=== PATIENT | male | born 1960 | race Caucasian/White ===

== ENCOUNTER → 2016-10-04 | Outpatient (REF) | payer OTHER ==
[~2016-10-04] MED LIST: BACT400T PO; DOXY150C PO; LASI40TA PO; MELO7.5T3 PO; prilosec PO
[2016-10-04 16:04] LABS: BASO # 0.1 K/mm3 (0.0-0.2); BASO % 1.5 % (0.0-1.0); EOS # 0.4 K/mm3 (0.0-0.50); EOS % 5.1 % (0.0-3.0); LARGE UNSTAINED CELL # 0.2 K/mm3 (0.0-0.4); LYMPH # 2.7 K/mm3 (1.5-4.5); LYMPH % 35.9 % (24.0-44.0); MEAN CORPUSCULAR HEMOGLOBIN 32.9 pg (27.0-33.0); MEAN CORPUSCULAR HGB CONC 33.9 g/dl (32.0-36.5); MEAN CORPUSCULAR VOLUME 97.1 fl (80.0-96.0); MONO # 0.6 K/mm3 (0.0-0.8); MONO % 8.8 % (0.0-5.0); NEUTROPHILS # 3.1 K/mm3 (1.8-7.7); NEUTROPHILS % 45.6 % (36.0-66.0); PLATELET COUNT, AUTOMATED 203 k/mm3 (150-450); RED CELL DISTRIBUTION WIDTH 12.8 % (11.5-14.5); WHITE BLOOD COUNT 6.9 K/mm3 (4.0-10.0)
[2016-10-04 16:11] LABS: FOLATE 11.7 NG/ML
[2016-10-04 16:24] LABS: ALBUMIN 3.6 GM/DL (3.2-5.2); ALBUMIN/GLOBULIN RATIO 1.13 (1.00-1.93); BILIRUBIN,TOTAL 0.4 MG/DL (0.2-1.0); CALCIUM LEVEL 8.9 MG/DL (8.5-10.1); CREATININE FOR GFR 1.56 MG/DL (0.70-1.30); FREE T4 0.83 NG/DL (0.76-1.46); GLOMERULAR FILTRATION RATE 49.1 (>56); POTASSIUM SERUM 4.4 MEQ/L (3.5-5.1); TOTAL PROTEIN 6.8 GM/DL (6.4-8.2)
== END ==
LOC: M SFHCADAM 08:43
PROVIDERS: ATTEND Physician Assistant Medical
DX: E78.1 Pure hyperglyceridemia (principal); R73.01 Impaired fasting glucose; E55.9 Vitamin D deficiency, unspecified; R42 Dizziness and giddiness

== ENCOUNTER → 2016-12-06 | Outpatient (CLI) | payer OTHER ==
[~2016-12-06] MED LIST changes: +ACETAMINOPHEN-COD; +CITA10TA5 PO; +CODE30TA3 PO; +CYCL10TA PO; +OMEP40CA2 PO; +SYMB16INH INH; +VITA1CAP40; +VITA200028 PO
--- NOTE | 2016-12-06 17:07 | REP ---
Right knee series: Two views. History: Acute pain in the right knee. Findings: AP and lateral views of the right knee demonstrate medial and lateral tibial femoral spurring. Patellofemoral spurring and narrowing is seen. Nonarticular patellar spurring is also noted. No fracture or joint effusion is seen. Impression: Osteoarthritis. No fracture seen. Signed by Eamon Morton MD 12/07/2016 09:23 A
== END ==
LOC: M ADAMS 13:37
PROVIDERS: ATTEND Physician Assistant Medical
DX: M17.11 Unilateral primary osteoarthritis, right knee (principal)

== ENCOUNTER 2016-12-27 12:42 | Emergency (ER) | payer OTHER ==
[~2016-12-27] VITALS: Ht 180.3 cm; Wt 144.6 kg
[~2016-12-27 12:42] MED LIST changes: -ACETAMINOPHEN-COD; -CITA10TA5 PO; -CODE30TA3 PO; -CYCL10TA PO; -OMEP40CA2 PO; -SYMB16INH INH; -VITA1CAP40; -VITA200028 PO
[2016-12-27] MEDS ORDERED: KETOROLAC 60 MG/2 ML VIAL (J1885) IM ONE (13:00)
[2016-12-27] MEDS ORDERED: SYMB16INH INH (13:04)
[2016-12-27] MEDS ORDERED: OMEP40CA2 PO (13:04)
[2016-12-27] MEDS ORDERED: CODE30TA3 PO (13:04)
[2016-12-27] MEDS ORDERED: VITA200028 PO (13:04)
[2016-12-27] MEDS ORDERED: CITA10TA5 PO (13:04)
[2016-12-27] MEDS ORDERED: CYCL10TA PO (13:35)
[2016-12-27 14:17] VITALS: BP 122/86
== END 2016-12-27 14:21 | disposition home or self-care (01) ==
LOC: M ED 12:42
DX: S39.012A Strain of muscle, fascia and tendon of lower back, initial encounter (principal); X50.9XXA Other and unspecified overexertion or strenuous movements or postures, initial encounter; Y93.9 Activity, unspecified; Y92.9 Unspecified place or not applicable; Y99.0 Civilian activity done for income or pay; Z87.891 Personal history of nicotine dependence
CPT/HCPCS: 96372; 99283; J1885; J3360

== ENCOUNTER → 2017-02-15 | Outpatient (REF) | payer OTHER ==
[~2017-02-15] MED LIST changes: +ACETAMINOPHEN-COD; +CITA10TA5 PO; +CODE30TA3 PO; +CYCL10TA PO; +OMEP40CA2 PO; +SYMB16INH INH; +VITA1CAP40; +VITA200028 PO
== END ==
LOC: M LAB REF 15:00
PROVIDERS: ATTEND Ophthalmology
DX: L72.0 Epidermal cyst (principal)

== ENCOUNTER 2017-02-27 16:51 | Emergency (ER) | payer OTHER ==
[~2017-02-27] VITALS: Ht 185.4 cm; Wt 145.4 kg
[~2017-02-27 16:51] MED LIST changes: -ACETAMINOPHEN-COD; -VITA1CAP40
[2017-02-27] MEDS ORDERED: ACETAMINOPHEN-COD (16:59)
[2017-02-27] MEDS ORDERED: VITA1CAP40 (16:59)
[2017-02-27] MEDS ORDERED: NORCO, ANEXSIA 5/325MG TABLET (HYDROcodone/ACETAMINOPHEN) PO ONE (18:30)
--- NOTE | 2017-02-27 18:55 | REP ---
Left ankle series: Four views. History: Trauma. Findings: Four views of the left ankle demonstrate an intact ankle mortise. There is an old exostosis from the medial malleolus. No fracture or other acute bony abnormality is seen. Ankle mortise is intact. Achilles and plantar calcaneal spurring is noted with osteoarthritic spurring is seen. Impression: No fracture or other acute bony abnormality. Midfoot ankle and heel spurring seen. Signed by Eamon Morton MD 02/27/2017 08:03 P
[2017-02-27 19:05] VITALS: BP 139/87
== END 2017-02-27 19:07 | disposition home or self-care (01) ==
LOC: M ED 16:51
DX: S93.432A Sprain of tibiofibular ligament of left ankle, initial encounter (principal); X50.9XXA Other and unspecified overexertion or strenuous movements or postures, initial encounter; Y92.59 Other trade areas as the place of occurrence of the external cause; Y93.01 Activity, walking, marching and hiking; Y99.0 Civilian activity done for income or pay; J45.909 Unspecified asthma, uncomplicated; N18.3 Chronic kidney disease, stage 3 (moderate); M79.7 Fibromyalgia; G47.33 Obstructive sleep apnea (adult) (pediatric); K21.9 Gastro-esophageal reflux disease without esophagitis; M10.9 Gout, unspecified; F17.210 Nicotine dependence, cigarettes, uncomplicated; E66.01 Morbid (severe) obesity due to excess calories; Z79.899 Other long term (current) drug therapy

== ENCOUNTER → 2017-04-07 | Outpatient (REF) | payer OTHER ==
[~2017-04-07] MED LIST changes: +ACETAMINOPHEN-COD; +VITA1CAP40
[2017-04-07 13:37] LABS: BASO # 0.1 10^3/uL (0.0-0.2); BASO % 1.1 % (0.0-1.0); EOS # 0.2 10^3/uL (0.0-0.50); EOS % 1.8 % (0.0-3.0); IMMATURE GRANULOCYTE % 0.6 % (0-0); LYMPH # 2.3 10^3/uL (1.5-4.5); LYMPH % 25.9 % (24.0-44.0); MEAN CORPUSCULAR HEMOGLOBIN 31.6 pg (27.0-33.0); MEAN CORPUSCULAR HGB CONC 32.9 g/dl (32.0-36.5); MEAN CORPUSCULAR VOLUME 95.9 fl (80.0-96.0); MONO % 11.2 % (0.0-5.0); NEUTROPHILS # 5.2 10^3/uL (1.8-7.7); NEUTROPHILS % 59.4 % (36.0-66.0); PLATELET COUNT, AUTOMATED 198 10^3/uL (150-450); RED CELL DISTRIBUTION WIDTH 13.5 % (11.5-14.5); WHITE BLOOD COUNT 8.8 10^3/uL (4.0-10.0)
[2017-04-07 14:11] LABS: ALBUMIN/GLOBULIN RATIO 1.14 (1.00-1.93); BILIRUBIN,TOTAL 0.9 MG/DL (0.2-1.0); CALCIUM LEVEL 9.5 MG/DL (8.5-10.1); CREATININE FOR GFR 1.47 MG/DL (0.70-1.30); GLOMERULAR FILTRATION RATE 52.4 (>56); POTASSIUM SERUM 4.6 MEQ/L (3.5-5.1); TOTAL PROTEIN 7.5 GM/DL (6.4-8.2)
== END ==
LOC: M SFHCADAM 08:37
PROVIDERS: ATTEND Physician Assistant Medical
DX: N18.3 Chronic kidney disease, stage 3 (moderate) (principal); E55.9 Vitamin D deficiency, unspecified; R73.01 Impaired fasting glucose

== ENCOUNTER → 2017-06-23 | Outpatient (CLI) | payer OTHER | LOC: M ADAMS 14:04 | DX: M25.551 Pain in right hip (principal); M17.11 Unilateral primary osteoarthritis, right knee | CPT/HCPCS: 73502 ==

== ENCOUNTER → 2017-06-29 | Outpatient (CLI) | payer OTHER | LOC: M ADAMS 14:21 | DX: M16.11 Unilateral primary osteoarthritis, right hip (principal); M25.551 Pain in right hip; R20.2 Paresthesia of skin | CPT/HCPCS: 72100 ==

== ENCOUNTER → 2017-07-10 | Outpatient (CLI) | payer OTHER | LOC: M RAD 09:40 | DX: M51.26 Other intervertebral disc displacement, lumbar region (principal); M51.27 Other intervertebral disc displacement, lumbosacral region; M48.061 Spinal stenosis, lumbar region without neurogenic claudication; M25.551 Pain in right hip; M12.88 Other specific arthropathies, not elsewhere classified, other specified site; R20.2 Paresthesia of skin | CPT/HCPCS: 72148 ==

== ENCOUNTER 2017-09-11 12:56 | Emergency (ER) | payer OTHER ==
[2017-09-11] MEDS: MORPHINE 2 MG/ML 1ML SYRINGE (J2270) IV ×2 (16:27→20:17)
[2017-09-11 16:40] LABS: BASO # 0.1 10^3/uL (0.0-0.2); EOS # 0.3 10^3/uL (0.0-0.50); EOS % 3.2 % (0.0-3.0); HEMATOCRIT 41.5 % (42.0-52.0); HEMOGLOBIN 14.1 g/dl (13.5-17.5); IMMATURE GRANULOCYTE % 0.7 % (0-3.0); LYMPH # 2.2 10^3/uL (1.5-4.5); LYMPH % 24.9 % (24.0-44.0); MEAN CORPUSCULAR VOLUME 94.3 fl (80.0-96.0); MONO # 1.2 10^3/uL (0.0-0.8); MONO % 13.4 % (0.0-5.0); NEUTROPHILS % 56.8 % (36.0-66.0); PLATELET COUNT, AUTOMATED 155 10^3/uL (150-450); RED CELL DISTRIBUTION WIDTH 13.2 % (11.5-14.5); WHITE BLOOD COUNT 8.9 10^3/uL (4.0-10.0)
[2017-09-11 16:50] LABS: INR 0.95; PROTHROMBIN TIME 12.7 SECONDS (12.4-14.5)
[2017-09-11 16:51] LABS: PARTIAL THROMBOPLASTIN TIME 26.4 SECONDS (26.8-37.9)
[2017-09-11 17:07] LABS: ALBUMIN 3.3 GM/DL (3.2-5.2); ALBUMIN/GLOBULIN RATIO 0.79 (1.00-1.93); ALKALINE PHOSPHATASE 138 U/L (45-117); ALT/SGPT 19 U/L (12-78); ANION GAP 6 MEQ/L (8-16); AST/SGOT 24 U/L (7-37); BILIRUBIN,DIRECT 0.1 MG/DL (0.0-0.2); BILIRUBIN,TOTAL 0.6 MG/DL (0.2-1.0); BLOOD UREA NITROGEN 17 MG/DL (7-18); CALCIUM LEVEL 8.9 MG/DL (8.5-10.1); CARBON DIOXIDE LEVEL 27 MEQ/L (21-32); CHLORIDE LEVEL 106 MEQ/L (98-107); CK-MB VALUE MASS 1.1 NG/ML (<3.6); CPK CREATINE PHOSPHOKINASE 183 U/L (39-308); CREATININE FOR GFR 1.41 MG/DL (0.70-1.30); GLUCOSE, FASTING 115 MG/DL (70-100); SODIUM LEVEL 139 MEQ/L (136-145); TOTAL PROTEIN 7.5 GM/DL (6.4-8.2); TROPONIN I < 0.02 NG/ML (< 0.10)
[2017-09-11] MEDS ORDERED: ISOVUE-370 76% 100ML VIAL (Q9967) As Ordered (17:12)
[2017-09-11] MEDS: APIXABAN 5 MG TAB (ELIQUIS) PO (20:37)
== END 2017-09-11 21:05 | disposition home or self-care (01) ==
LOC: M ED 12:56
DX: I26.99 Other pulmonary embolism without acute cor pulmonale (principal); I82.431 Acute embolism and thrombosis of right popliteal vein; R91.8 Other nonspecific abnormal finding of lung field; J44.9 Chronic obstructive pulmonary disease, unspecified; K21.9 Gastro-esophageal reflux disease without esophagitis; Z87.828 Personal history of other (healed) physical injury and trauma; Z87.891 Personal history of nicotine dependence; Z85.47 Personal history of malignant neoplasm of testis
CPT/HCPCS: Q9967

== ENCOUNTER 2017-12-05 03:35 | Emergency (ER) | payer OTHER ==
[2017-12-05] MEDS: ONDANSETRON 4MG/2ML VIAL (J2405) IV (05:37)
[2017-12-05] MEDS: METHOCARBAMOL 1,000 MG/10 ML VIAL (J2800) IV (05:44)
[2017-12-05] MEDS: KETOROLAC 30 MG/ML VIAL (J1885) IV (05:49)
[2017-12-05] MEDS: MORPHINE 4 MG/ML 1ML VIAL/SYRINGE (J2270) IV ×2 (05:50→06:23)
== END 2017-12-05 08:04 | disposition home or self-care (01) ==
LOC: M ED 03:35
DX: M54.5 Low back pain (principal); G89.29 Other chronic pain; Z86.718 Personal history of other venous thrombosis and embolism; Z86.711 Personal history of pulmonary embolism; Z87.891 Personal history of nicotine dependence; Z79.899 Other long term (current) drug therapy; Z79.01 Long term (current) use of anticoagulants; Z79.51 Long term (current) use of inhaled steroids
CPT/HCPCS: J2270

== ENCOUNTER → 2018-01-08 | Outpatient (REF) | payer OTHER ==
[2018-01-08 18:58] LABS: ALBUMIN 3.7 GM/DL (3.2-5.2); ALKALINE PHOSPHATASE 109 U/L (45-117); ALT/SGPT 21 U/L (12-78); ANION GAP 8 MEQ/L (8-16); AST/SGOT 29 U/L (7-37); BILIRUBIN,TOTAL 0.5 MG/DL (0.2-1.0); BLOOD UREA NITROGEN 25 MG/DL (7-18); CARBON DIOXIDE LEVEL 26 MEQ/L (21-32); CHLORIDE LEVEL 108 MEQ/L (98-107); CREATININE FOR GFR 1.61 MG/DL (0.70-1.30); GLUCOSE, FASTING 120 MG/DL (70-100); POTASSIUM SERUM 4.3 MEQ/L (3.5-5.1); SODIUM LEVEL 142 MEQ/L (136-145); TOTAL PROTEIN 7.4 GM/DL (6.4-8.2)
[2018-01-08 19:02] LABS: ESTIMATED AVERAGE GLUCOSE 128 MG/DL (60-110); HEMOGLOBIN A1c 6.1 %; TOTAL 25(OH) VITAMIN D 15.9 NG/ML (30.0-100.0)
== END ==
LOC: M SFHCADAM 13:38
DX: E11.22 Type 2 diabetes mellitus with diabetic chronic kidney disease (principal); E55.9 Vitamin D deficiency, unspecified

== ENCOUNTER 2018-01-23 16:39 | Emergency (ER) | payer OTHER | END 2018-01-23 17:50 | disposition home or self-care (01) | LOC: M ED 16:39 | DX: S29.002A Unspecified injury of muscle and tendon of back wall of thorax, initial encounter (principal); S39.002A Unspecified injury of muscle, fascia and tendon of lower back, initial encounter; X50.0XXA Overexertion from strenuous movement or load, initial encounter; Y92.89 Other specified places as the place of occurrence of the external cause; J44.9 Chronic obstructive pulmonary disease, unspecified; Z85.47 Personal history of malignant neoplasm of testis; Z79.899 Other long term (current) drug therapy; Z79.01 Long term (current) use of anticoagulants; Z87.891 Personal history of nicotine dependence | CPT/HCPCS: 99282 ==

== ENCOUNTER → 2018-03-20 | Outpatient (CLI) | payer OTHER | LOC: M RAD 14:46 | DX: M47.22 Other spondylosis with radiculopathy, cervical region (principal); M50.21 Other cervical disc displacement, high cervical region; M50.221 Other cervical disc displacement at C4-C5 level; M50.222 Other cervical disc displacement at C5-C6 level; M50.223 Other cervical disc displacement at C6-C7 level | CPT/HCPCS: 72141 ==

== ENCOUNTER → 2018-03-20 | Outpatient (REF) | payer OTHER ==
[2018-03-20 14:15] LABS: BASO # 0.1 10^3/uL (0.0-0.2); BASO % 1.7 % (0.0-1.0); EOS # 0.4 10^3/uL (0.0-0.50); EOS % 5.3 % (0.0-3.0); HEMATOCRIT 45.3 % (42.0-52.0); IMMATURE GRANULOCYTE % 0.3 % (0-3.0); LYMPH # 2.4 10^3/uL (1.5-4.5); LYMPH % 36.6 % (24.0-44.0); MEAN CORPUSCULAR HEMOGLOBIN 32.5 pg (27.0-33.0); MEAN CORPUSCULAR HGB CONC 33.1 g/dl (32.0-36.5); MEAN CORPUSCULAR VOLUME 98.1 fl (80.0-96.0); MONO # 0.7 10^3/uL (0.0-0.8); MONO % 10.9 % (0.0-5.0); NEUTROPHILS % 45.2 % (36.0-66.0); PLATELET COUNT, AUTOMATED 207 10^3/uL (150-450); RED BLOOD COUNT 4.62 10^6/uL (4.30-6.10); RED CELL DISTRIBUTION WIDTH 13.2 % (11.5-14.5); WHITE BLOOD COUNT 6.6 10^3/uL (4.0-10.0)
[2018-03-20 20:12] LABS: ALBUMIN 3.9 GM/DL (3.2-5.2); ALBUMIN/GLOBULIN RATIO 1.08 (1.00-1.93); ALKALINE PHOSPHATASE 113 U/L (45-117); ALT/SGPT 23 U/L (12-78); ANION GAP 11 MEQ/L (8-16); AST/SGOT 36 U/L (7-37); BILIRUBIN,TOTAL 0.8 MG/DL (0.2-1.0); BLOOD UREA NITROGEN 28 MG/DL (7-18); CALCIUM LEVEL 8.9 MG/DL (8.5-10.1); CARBON DIOXIDE LEVEL 24 MEQ/L (21-32); CHLORIDE LEVEL 105 MEQ/L (98-107); CHOLESTEROL LEVEL 208 MG/DL (<200); CHOLESTEROL RISK RATIO 5.333 (<5); CREATININE FOR GFR 1.41 MG/DL (0.70-1.30); GLOMERULAR FILTRATION RATE 54.8 (>56); GLUCOSE, FASTING 91 MG/DL (70-100); HDL CHOLESTEROL 39 MG/DL (>40); LDL CHOLESTEROL 120 MG/DL (<100); NON-HDL-C 169 MG/DL; POTASSIUM SERUM 4.4 MEQ/L (3.5-5.1); SODIUM LEVEL 140 MEQ/L (136-145); TOTAL PROTEIN 7.5 GM/DL (6.4-8.2); TRIGLYCERIDES LEVEL 243 MG/DL (<150)
== END ==
LOC: M SFHCADAM 08:33
DX: I82.411 Acute embolism and thrombosis of right femoral vein (principal); I26.99 Other pulmonary embolism without acute cor pulmonale; N18.3 Chronic kidney disease, stage 3 (moderate)

== ENCOUNTER 2018-04-09 09:17 | Day surgery (SDC) | payer OTHER ==
[2018-04-09] MEDS: NS 1,000 ML IV (06:00)
[2018-04-09] MEDS ORDERED: PROPOFOL 200 MG/20 ML VIAL As Ordered ×2 (09:52→09:59)
== END 2018-04-09 10:48 | disposition home or self-care (01) ==
LOC: M OPP 09:17
DX: Z12.11 Encounter for screening for malignant neoplasm of colon (principal); D12.2 Benign neoplasm of ascending colon; D12.4 Benign neoplasm of descending colon; K64.0 First degree hemorrhoids; K57.30 Diverticulosis of large intestine without perforation or abscess without bleeding; J45.909 Unspecified asthma, uncomplicated; J44.9 Chronic obstructive pulmonary disease, unspecified; M19.90 Unspecified osteoarthritis, unspecified site; D64.9 Anemia, unspecified; E78.5 Hyperlipidemia, unspecified; E66.9 Obesity, unspecified; M10.9 Gout, unspecified; Z86.010 Personal history of colon polyps; Z79.01 Long term (current) use of anticoagulants; Z79.899 Other long term (current) drug therapy; Z87.19 Personal history of other diseases of the digestive system; Z87.891 Personal history of nicotine dependence; Z92.21 Personal history of antineoplastic chemotherapy; Z86.718 Personal history of other venous thrombosis and embolism; Z98.890 Other specified postprocedural states
CPT/HCPCS: 45385

== ENCOUNTER → 2018-05-11 | Outpatient (REF) | payer OTHER ==
[~2018-05-11] MED LIST changes: +CITA-229 PO; +ELIQ5TAB PO; +IBUP-1022 PO; +NAPR-49 PO; +PERC5TAB12 PO; +PROAAER10 INH; +ROBA500T PO; +TYLE325T5 PO; -VITA1CAP40; +VITA50005; +VITMTA PO
[2018-05-11 15:59] LABS: BASO # 0.1 10^3/uL (0.0-0.2); BASO % 1.7 % (0.0-1.0); EOS # 0.5 10^3/uL (0.0-0.50); EOS % 7.2 % (0.0-3.0); HEMATOCRIT 46.9 % (42.0-52.0); HEMOGLOBIN 15.6 g/dl (13.5-17.5); LYMPH # 2.2 10^3/uL (1.5-4.5); LYMPH % 34.3 % (24.0-44.0); MEAN CORPUSCULAR HEMOGLOBIN 32.4 pg (27.0-33.0); MEAN CORPUSCULAR HGB CONC 33.3 g/dl (32.0-36.5); MEAN CORPUSCULAR VOLUME 97.5 fl (80.0-96.0); MONO # 0.6 10^3/uL (0.0-0.8); MONO % 9.9 % (0.0-5.0); NEUTROPHILS % 46.6 % (36.0-66.0); PLATELET COUNT, AUTOMATED 194 10^3/uL (150-450); RED BLOOD COUNT 4.81 10^6/uL (4.30-6.10); WHITE BLOOD COUNT 6.4 10^3/uL (4.0-10.0)
[2018-05-11 16:03] LABS: C REACTIVE PROTEIN QUANTITATIV 0.59 MG/DL (0.00-0.30); GLUCOSE, FASTING 104 MG/DL (70-100); RHEUMATOID FACTOR QUANT < 10.0 IU/ML (<15.0); URIC ACID 7.3 MG/DL (3.5-7.2)
[2018-05-11 16:13] LABS: VITAMIN B12 LEVEL 554 PG/ML (247-911)
[2018-05-11 16:14] LABS: FOLATE 18.8 NG/ML (>5.4)
[2018-05-11 16:25] LABS: ERYTHROCYTE SEDIMENTATION RATE 4 mm/hr (0-20)
[2018-05-15 00:08] LABS: ANTI DOUBLE STRAND-DNA AB 1 IU/mL (0-9); ANTINUCLEAR ANTIBODIES DIRECT Positive (Negative); Lyme Disease IgG/IgM Antibodie <0.91 ISR (0.00-0.90); Lyme Disease IgM Ab Quantitati <0.80 index (0.00-0.79); RNP ANTIBODIES <0.2 AI (0.0-0.9); SJOGREN'S ANTI SS-A <0.2 AI (0.0-0.9); SJOGREN'S ANTI SS-B <0.2 AI (0.0-0.9); SMITH ANTIBODIES <0.2 AI (0.0-0.9)
== END ==
LOC: M LABDRAW1 12:10
PROVIDERS: ATTEND Physician Assistant Surgical
DX: M76.821 Posterior tibial tendinitis, right leg (principal)

== ENCOUNTER → 2018-06-14 | Outpatient (REF) | payer OTHER ==
[~2018-06-14] MED LIST changes: +ALLO10TA PO; -NAPR-49 PO; +NAPR-50 PO; +PRED20TA PO; +VITA50005 PO
[2018-06-14 19:32] LABS: HEMATOCRIT 44.7 % (42.0-52.0); HEMOGLOBIN 15.3 g/dl (13.5-17.5); MEAN CORPUSCULAR HEMOGLOBIN 32.3 pg (27.0-33.0); MEAN CORPUSCULAR HGB CONC 34.2 g/dl (32.0-36.5); MEAN CORPUSCULAR VOLUME 94.5 fl (80.0-96.0); PLATELET COUNT, AUTOMATED 242 10^3/uL (150-450); RED BLOOD COUNT 4.73 10^6/uL (4.30-6.10); WHITE BLOOD COUNT 10.7 10^3/uL (4.0-10.0)
== END ==
LOC: M SFHCADAM 14:54
PROVIDERS: ATTEND Physician Assistant Medical
DX: K92.1 Melena (principal)

== ENCOUNTER 2018-08-06 09:43 | Inpatient (IN) | payer OTHER ==
[~2018-08-06] VITALS: Ht 185.4 cm; Wt 151.1 kg
[2018-08-06] MEDS ORDERED: ONDANSETRON 4MG/2ML VIAL (J2405) IV ONE ×2 (10:00→13:15)
[2018-08-06 10:13] LABS: HEMATOCRIT 43.7 % (42.0-52.0); MEAN CORPUSCULAR HEMOGLOBIN 32.3 pg (27.0-33.0); MEAN CORPUSCULAR VOLUME 100.9 fl (80.0-96.0); PLATELET COUNT, AUTOMATED 206 10^3/uL (150-450); RED BLOOD COUNT 4.33 10^6/uL (4.30-6.10)
[2018-08-06] MEDS: NS 1,000 ML IV SCH ×3 (10:13→20:33)
[2018-08-06] MEDS: MORPHINE 4 MG/ML 1ML VIAL/SYRINGE (J2270) IV PRN ×4 (10:13→15:52)
[2018-08-06 10:27] LABS: INR 0.99; PROTHROMBIN TIME 13.2 SECONDS (12.1-14.4)
[2018-08-06 10:28] LABS: PARTIAL THROMBOPLASTIN TIME 29.3 SECONDS (25.4-37.6)
[2018-08-06 10:33] LABS: BLOOD UREA NITROGEN 26 MG/DL (7-18); CALCIUM LEVEL 8.4 MG/DL (8.5-10.1); CARBON DIOXIDE LEVEL 29 MEQ/L (21-32); CHLORIDE LEVEL 105 MEQ/L (98-107); CPK CREATINE PHOSPHOKINASE 276 U/L (39-308); CREATININE FOR GFR 1.56 MG/DL (0.70-1.30); GLOMERULAR FILTRATION RATE 48.7 (>56); GLUCOSE, FASTING 111 MG/DL (70-100); MB/CK RELATIVE INDEX 0.91 (< OR =4); POTASSIUM SERUM 4.6 MEQ/L (3.5-5.1); SODIUM LEVEL 141 MEQ/L (136-145); TROPONIN I < 0.02 NG/ML (< 0.10)
--- NOTE | 2018-08-06 11:04 | REP ---
RIGHT ANKLE, THREE VIEWS: HISTORY: Trauma. There is a nondisplaced oblique fracture of the distal fibula. There is widening of the superior medial joint space with lateral dislocation of the talus with respect to the tibia. Osteophytes are present on the inferior and posterior calcaneus. Soft tissue swelling is present. IMPRESSION: Fracture dislocation as described above. Electronically Signed by Miguel Gray MD 08/06/2018 11:08 A
--- NOTE | 2018-08-06 11:12 | REP ---
AP PORTABLE SEATED CHEST: 08/06/2018. Comparison: CTA and portable chest 06/04/2018. Lung perkins are better inflated than on the previous study. Some underlying mild fibrotic changes are present. No gross cardiomegaly, pleural effusion, acute infiltrate or masses. There is no vascular redistribution or edema. The aorta and airway intact. No widening of the mediastinum. Impression: 1. Some minor chronic interstitial changes in the chest similar to previous study but no cardiomegaly, edema, effusion, atelectasis or mass. No mediastinal widening. Electronically Signed by Elder Iniguez MD 08/06/2018 07:40 P
--- NOTE | 2018-08-06 12:07 | REP ---
CT RIGHT ANKLE WITHOUT CONTRAST: 08/06/2018 COMPARISON: Ankle x-ray 08/06/2018. CLINICAL HISTORY: Fracture and subluxation of the ankle. Technique axial soft-tissue and bone windows with reconstructed axial images to the long axis of the lower leg as well as coronal and sagittal reconstructions. Distal fibular displaced fracture. The talus is subluxed laterally in relationship to the tibial plafond. There is a distal fibular fragment at the lateral corner of the ankle mortise joint. That widens that lateral aspect of the ankle mortise joint. There is a small posterior malleolar fracture. I do not see a medial malleolar fracture. Remainder of the distal tibia intact. Talus without a definite acute fracture. The subtalar joints intact. There are heel spurs along with dorsal spurs anteriorly at the talonavicular and navicular first cuneiform joints on the sagittal reconstructions. IMPRESSION: 1. Bimalleolar fracture involving the posterior and lateral malleolus with distal fibular intra-articular fracture of the major fibular fragment in the lateral aspect of the mortise joint asymmetrically widening the joint. The talus is subluxed laterally and slightly posteriorly without melvi dislocation. No fracture talus, calcaneus or visualized tarsal bones. There are degenerative changes. Electronically Signed by Elder Iniguez MD 08/06/2018 07:48 P
[2018-08-06] MEDS ORDERED: ELIQ5TAB PO (13:21)
[2018-08-06] MEDS ORDERED: PERCOCET 5MG/325MG TAB PO PRN (16:00)
[2018-08-06] MEDS ORDERED: ACETAMINOPHEN TAB 650MG DOSE (2X325MG) PO PRN (16:00)
[2018-08-06] MEDS ORDERED: HEPARIN SOD (PORCINE) 5000 UNITS/ML VIAL IV PRN (16:15)
[2018-08-06] MEDS ORDERED: LIDOCAINE 1% MDV 20ML VIAL As Ordered ONE (16:18)
[2018-08-06] MEDS ORDERED: LIDOCAINE 1% MDV 20ML VIAL SC ONE (16:30)
[2018-08-06] MEDS ORDERED: LIDOCAINE 1% MDV 20ML VIAL SQ ONE (16:30)
[2018-08-06] MEDS ORDERED: MORPHINE 4 MG/ML 1ML VIAL/SYRINGE (J2270) IV ONE (17:00)
[2018-08-06] MEDS: PERCOCET 5MG/325MG TAB PO PRN (18:08)
--- NOTE | 2018-08-06 18:58 | REP ---
RIGHT ANKLE, FOUR VIEWS: HISTORY: Fracture. COMPARISON: 5:14 am 08/06/2018. A plaster cast is present obscuring detail. There is an oblique fracture of the distal fibula. There is widening of the medial joint space. There is no dislocation. IMPRESSION: The patient is status-post reduction of a fracture subluxation. There is widening of the medial joint space. Electronically Signed by Miguel Gray MD 08/06/2018 07:01 P
--- NOTE | 2018-08-06 19:00 | REP ---
RIGHT ANKLE, FIVE VIEWS: HISTORY: Closed reduction. Five portable radiographs were obtained with a C-ARM. The patient is status-post closed reduction of a fracture subluxation. There is a nondisplaced fracture of the distal fibula. There is widening of the medial joint space. Fluoroscopic time 9 seconds. IMPRESSION: The patient is status-post reduction of a fracture subluxation. Electronically Signed by Miguel Gray MD 08/06/2018 07:17 P
[2018-08-06] MEDS: HEPARIN DRIP 25,000 UNITS in APPROPRIATE DILUENT 1 EA IV SCH (20:24)
[2018-08-06 21:00] VITALS: BP 147/83
[2018-08-06] MEDS ORDERED: APIXABAN 5 MG TAB (ELIQUIS) PO SCH (21:00)
[2018-08-06] MEDS: SYMBICORT 160/4.5MCG INHALER 6GM INH SCH (21:00)
[2018-08-06] MEDS: OMEPRAZOLE 20 MG CAP PO SCH (21:36)
--- NOTE | 2018-08-06 21:53 | ECGEPIP ---
Stationary ECG Study [facility] - ED Test Date: 2018-08-06 Pat Name: SAL MENON Department: Room: - Gender: M Psychiatric Assistant: : 1960 Requested By: Mal Saavedra Order Number: [id number] Reading MD: Alfonso Ayala Measurements Intervals [place] Rate: 82 P: 33 IA: 178 QRS: 40 QRSD: 109 T: 42 QT: 363 QTc: 426 Interpretive Statements SINUS RHYTHM Electronically Signed On 08-06-2018 21:53:02 EDT by Alfonso Ayala
[2018-08-07 00:35] VITALS: BP 128/73
[2018-08-07] MEDS: PERCOCET 5MG/325MG TAB PO PRN ×4 (02:01→21:00)
[2018-08-07 04:25] VITALS: BP 124/75
[2018-08-07] MEDS: NS 1,000 ML IV SCH ×2 (05:37→16:34)
[2018-08-07 06:41] LABS: HEMATOCRIT 39.7 % (42.0-52.0); HEMOGLOBIN 12.8 g/dl (13.5-17.5); MEAN CORPUSCULAR HEMOGLOBIN 32.3 pg (27.0-33.0); MEAN CORPUSCULAR HGB CONC 32.2 g/dl (32.0-36.5); MEAN CORPUSCULAR VOLUME 100.3 fl (80.0-96.0); PLATELET COUNT, AUTOMATED 172 10^3/uL (150-450); RED BLOOD COUNT 3.96 10^6/uL (4.30-6.10); WHITE BLOOD COUNT 10.7 10^3/uL (4.0-10.0)
--- NOTE | 2018-08-07 06:46 | HPE ---
DATE OF ADMISSION: 08/06/2018 CHIEF COMPLAINT: Status post fall. HISTORY OF PRESENT ILLNESS (HPI): This is a 57-year-old gentleman with past medical history of morbid obesity, testicular cancer, prior history of deep venous thrombosis (DVT), pulmonary embolism (PE), most recently on May 2018, who is on lifelong anticoagulation with Eliquis, chronic kidney disease (CKD), chronic pulmonary obstructive disease (COPD), hypertension who presents with the chief complaint of suffering a fall today and right ankle pain. The patient reports that he is currently living with his son in a large bedroom where he has all of his furniture in the room and it is crowded and he tripped over something and fell down and subsequently had significant right leg pain. Currently he is saying his pain is adequately controlled and he denies any other symptoms. EMERGENCY ROOM (ER) COURSE: In the ER the patient had a CT scan done which shows a bimalleolar fracture involving the posterior and lateral malleolus with distal fibular and intraarticular fracture of the major fibular fragment and the lateral aspect of the mortise joint asymmetrically widening the joint. Orthopedics was called and Dr. Yun will be evaluating the patient for surgery. The patient is being admitted to the medicine service given the patient's medical problems and the fact that he is currently on anticoagulation and this will need to be held. PAST MEDICAL HISTORY: As noted above in the HPI. PAST SURGICAL HISTORY: 1. Testicular surgery many years ago. 2. Left rotator cuff surgery. MEDICATIONS: The patient's home medications are: - albuterol, 2 puffs inhaled four times a day as needed for shortness of breath - vitamin D 50,000 unlit by mouth weekly - allopurinol 300mg daily - Eliquis 5 mg twice daily - Symbicort 2 puffs inhaled twice daily - citalopram 10 mg daily - multivitamin one tab by mouth daily - Prilosec 40 mg by mouth twice a day ALLERGIES: No known drug allergies. SOCIAL HISTORY: The patient is and currently lives with his son. No smoking, alcohol or drugs. 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 He was a prior smoker but quit 15 years ago. FAMILY HISTORY: Mother had diabetes. PHYSICAL EXAMINATION: VITAL SIGNS: Currently afebrile to 97.3, blood pressure 132/67, heart rate 80, satting 93%. GENERAL: He is morbidly obese and in no acute distress. HEENT: Oropharynx clear. CARDIOVASCULAR: Regular rate and rhythm. No murmurs, rubs, gallops. LUNGS: Clear to auscultation bilaterally but lung sounds are distant. ABDOMEN: Obese, nontender. EXTREMITIES: No clubbing, cyanosis or edema. Right lower extremity is in a soft brace. NEURO: He is alert and oriented times three, follows simple commands. No focal neurologic deficits. SKIN: Intact. PSYCHIATRY: Mood stable. LABORATORY DATA: White count 8.0, hemoglobin 14, hematocrit 43, platelets 206. Chemistries: Creatinine 1.56, potassium 4.6, last creatinine was 1.35 in May 2018. Coags: INR 0.99. IMAGING: CT scan of the right leg that shows a bimalleolar fracture involving the posterior and lateral malleolus with distal fibula interarticular fracture of the major fibular fragment and the lateral aspect of the mortise joint asymmetrically widening the joint. The talus is subluxed laterally and slightly posteriorly without melvi dislocation. There is no fracture of the talus, calcaneus or visualized tarsal bones. There are degenerative changes. The patient also had an ankle x-ray that shows a nondisplaced oblique fracture of the distal fibula. There is widening of the superior medial joint space with lateral dislocation of the talus with respect to the tibia. Osteophytes are present on the inferior and posterior calcaneus. The patient also had a chest x-ray that shows some minor chronic interstitial changes in the chest similar to the previous study but no cardiomegaly, edema, effusion, atelectasis or mass. No mediastinal widening. ASSESSMENT AND PLAN: This is a 57-year-old gentleman with morbid obesity, prior history of deep venous thrombosis (DVT) and pulmonary embolus (PE) on lifelong anticoagulation, chronic kidney disease (CKD) hypertension, chronic pulmonary obstructive disease (COPD) who presents with the chief complaint of a fall, found to have a bimalleolar right ankle fracture. PROBLEMS: 1. Bimalleolar right ankle fracture. Dr. Yun of orthopedics has been informed of this patient and plans to do surgery in the future. For now I am holding his home Eliquis and placing him on a heparin drip for treatment of his lifelong anticoagulation for his PE. Once he is prepared to go to the operating room (OR) we can hold the heparin and place him on Percocet as needed for pain control. 2. History of CKD. Creatinine is near his baseline. 3. History of DVT and PE. The patient's home Eliquis is being held for potential surgery and he is being placed on a heparin drip which can be held immediately prior to surgery. 4. History of COPD. Continue home inhalers. 5. History of depression. Continue home Citalopram. 6. DVT prophylaxis on heparin drip. ALESSANDRAD
[2018-08-07 07:00] LABS: BLOOD UREA NITROGEN 20 MG/DL (7-18); CALCIUM LEVEL 8.3 MG/DL (8.5-10.1); CARBON DIOXIDE LEVEL 28 MEQ/L (21-32); CHLORIDE LEVEL 105 MEQ/L (98-107); CREATININE FOR GFR 1.22 MG/DL (0.70-1.30); GLOMERULAR FILTRATION RATE > 60.0 (>56); GLUCOSE, FASTING 109 MG/DL (70-100); POTASSIUM SERUM 4.3 MEQ/L (3.5-5.1); SODIUM LEVEL 139 MEQ/L (136-145)
[2018-08-07 08:00] VITALS: BP 129/74
[2018-08-07] MEDS: ONDANSETRON 4MG/2ML VIAL (J2405) IV PRN ×2 (08:36→13:13)
[2018-08-07] MEDS: ALLOPURINOL 300 MG TAB PO SCH (09:19)
[2018-08-07] MEDS: CitaloPRAM (CeleXA) 10 MG TABLET PO SCH (09:19)
[2018-08-07] MEDS: OMEPRAZOLE 20 MG CAP PO SCH ×2 (09:19→20:59)
[2018-08-07] MEDS: MULTIVITAMINS/MINERALS THERAP 1 TAB PO SCH (09:19)
--- NOTE | 2018-08-07 09:32 | IPNPDOC ---
Subjective Date Seen The patient was seen on 08/07/18. Subjective Chief Complaint/HPI Pt this morning c/o nausea. Pain is controlled. Plans for OR either tomorrow or Monday. General: Reports: Fatigue Constitutional: Denies: Chills, Fever ENT: Denies: Head Aches Pulmonary: Denies: Dyspnea, Cough Cardiovascular: Denies: Chest Pain, Palpitations Gastrointestinal: Denies: Nausea, Vomiting Neurological: Denies: Weakness Psych: Reports: Mood Normal Objective Physical Examination General Exam: Positive: Alert, No Acute Distress ENT Exam: Positive: Mucous membr. moist/pink Neck Exam: Positive: Supple Chest Exam: Positive: Clear to auscultation, Normal air movement Heart Exam: Positive: Rate Normal, Normal S1, Normal S2 Abdomen Exam: Positive: Normal bowel sounds, Soft; Negative: Tenderness Male Exam: Positive: Normal Genital Exam Extremity Exam: Negative: Edema Neuro Exam: Positive: Normal Speech Psych Exam: Positive: Mental status NL, Mood NL Assessment /Plan Problems (1) Displaced bimalleolar fracture of right ankle Status: Acute Response to Treatment: Stable Discussed With: Nurse, Patient Problem Specific Plan: Consult Specialist, Monitor Clinically, Repeat Labs Problem Text: Pt splinted, plans for OR likely tomorrow. Ortho managing. Pain controlled. (2) History of pulmonary embolism Status: Chronic Response to Treatment: Stable Discussed With: Patient Problem Specific Plan: Monitor Clinically, Repeat Labs Problem Text: Eliquis held, on heparin drip preoperatively, can resume Eliquis post op. (3) History of DVT (deep vein thrombosis) (4) CKD (chronic kidney disease), stage III Status: Chronic Response to Treatment: Stable (5) Asthma, mild intermittent Status: Chronic Response to Treatment: Stable (6) MICHAEL (obstructive sleep apnea) Status: Chronic Response to Treatment: Stable Problem Specific Plan: Monitor Clinically Problem Text: should bring home CPAP. Plan/VTE VTE Prophylaxis Ordered?: Yes VS, I&O, 24H, Fishbone Vital Signs/I&O Vital Signs Date Time Temp Pulse Resp B/P (MAP) Pulse Ox O2 Delivery O2 Flow Rate FiO2 08/07/18 09:18 20 94 2.0 08/07/18 04:25 99.7 93 124/75 (91) 08/06/18 10:00 Room Air I&O- Last 24 Hours up to 6 AM 08/07/18 06:00 Intake Total 300 ml Output Total 2075 ml Balance -1775 ml Laboratory Data 24H LABS Laboratory Tests 2 08/06/18 10:00: Nucleated Red Blood Cells % (auto) 0.0, Prothrombin Time 13.2, Prothromb Time International Ratio 0.99, Activated Partial Thromboplast Time 29.3, Anion Gap 7L, Glomerular Filtration Rate 48.7L, Blood Urea Nitrogen 26H, Creatinine 1.56H, Sodium Level 141, Potassium Level 4.6, Chloride Level 105, Carbon Dioxide Level 29, Calcium Level 8.4L, Total Creatine Kinase 276, Creatine Kinase MB 2.0, Creatine Kinase MB Relative Index 0.91, Troponin I < 0.02 08/06/18 16:22: Activated Partial Thromboplast Time 29.3 08/07/18 02:37: Activated Partial Thromboplast Time 45.3H 08/07/18 06:26: Nucleated Red Blood Cells % (auto) 0.0, Anion Gap 6L, Glomerular Filtration Rate > 60.0, Blood Urea Nitrogen 20H, Creatinine 1.22, Sodium Level 139, Potassium Level 4.3, Chloride Level 105, Carbon Dioxide Level 28, Calcium Level 8.3L CBC/BMP Laboratory Tests 08/06/18 10:00 Red Blood Count 4.33, Mean Corpuscular Volume 100.9 H, Mean Corpuscular Hemoglobin 32.3, Mean Corpuscular Hemoglobin Concent 32.0, Red Cell Distribution Width 13.6, Calcium Level 8.4 L, Total Creatine Kinase 276 08/07/18 06:26 Red Blood Count 3.96 L, Mean Corpuscular Volume 100.3 H, Mean Corpuscular Hemoglobin 32.3, Mean Corpuscular Hemoglobin Concent 32.2, Red Cell Distribution Width 13.6, Calcium Level 8.3 L FABIO MCNEILL PA-C Aug 07, 2018 09:32
[2018-08-07] MEDS: HEPARIN DRIP 25,000 UNITS in APPROPRIATE DILUENT 1 EA IV SCH (10:37)
[2018-08-07] MEDS: SYMBICORT 160/4.5MCG INHALER 6GM INH SCH ×2 (11:50→21:21)
[2018-08-07 12:00] VITALS: BP 111/66
--- NOTE | 2018-08-07 12:01 | ER ---
DATE OF CONSULTATION: 08/06/2018 INDICATION: Right ankle fracture-dislocation. HISTORY OF PRESENT ILLNESS: Salomon is a 57-year-old gentleman who is on Eliquis for recurrent deep venous thromboses (DVTs) in the right lower extremity who suffered a right leg injury at home on 08/06/2018. He and his are currently living with his son and girlfriend and there is a lot of furniture in their bedroom and it sounds like the right foot got stuck between some furniture and the bed and he went down. He then attempted to walk on it and then felt his ankle shift. He was thereafter unable to put any weight on it. X-rays in the emergency department of the right ankle revealed fibula fracture with partial dislocation of the ankle joint. There is no skin tenting. The patient was reporting significant pain in his ankle. Denied any pain at the knee. For the patient's full past medical history, past surgical history, medications, allergies, social history, review of systems please see the admitting hospitalist History and Physical. Physical exam reveals a middle-aged gentleman with large body habitus. He is alert and times three. Neurologic: Appropriate mood and pleasant affect. Cardiovascular: 2+ dorsalis pedis pulse in the right lower extremity. Pulmonary: Nonlabored breathing. Skin of the right ankle shows no open wounds. Musculoskeletal: There is external rotation deformity at the right ankle joint. He is tender to palpation both in the medial and lateral malleoli. The knee is nontender. I was able to find Eyes able to fire extensor digitorum longus (EHL) and flexor hallucis longus (FHL). Sensation light touch. Superficial vein (SV), dorsalis pedis (DP) and tibial nerves intact. X-rays: Four views of the right ankle, although no good mortise views show what looks like a SER4 fracture-dislocation pattern. ER obtain a CT scan the right ankle prior to reduction again showing displaced distal fibula fracture and dislocation of tibial talar joint. No fractures of the talus or dislocation of the subtalar joint. ASSESSMENT/PLAN: Salomon is a 57 gentleman with a bimalleolar equivalent right ankle fracture-dislocation on Eliquis. He last took his Eliquis Monday night. My recommendation given that he would not be able to have surgery for least 48 hours due to blood thinners was for a closed reduction and splinting followed by a open reduction internal fixation. He understood the timing of definitive surgery would will be largely depend in on his anticoagulation status and the swelling. I should mention on exam he has significant swelling in his left foot and ankle at baseline. He has large calves which makes it very difficult to compare to the injured right leg. So ultimately the risks and benefits of a closed reduction and splinting were discussed with the patient. Written informed consent was obtained. PROCEDURE NOTE: The right leg was marked by myself. The patient identified with a time-out per hospital protocol. The patient received 4 mg of IV morphine. Then using sterile gloves injected 10 mL of 1% lidocaine without epinephrine with a 22 gauge needle just medial to the tibialis anterior tendon per ankle joint block protocol. I aspirated some of the hemarthrosis and then injected the lidocaine. This was tolerated well. Within minutes he had a dramatic decrease in his pain. The miniature C-arm was available. The ankle was reduced with Nicole's type maneuver and prior to splinting, I obtained AP mortise and lateral views with the mini C-arm, which show an anatomic reduction of the tibiotalar joint with a well aligned distal fibula fracture. I then placed the patient into a well-padded plaster splint with both sugar-tong and posterior slabs. The splint was molded to maintain the reduction. Final C-arm images AP mortise and lateral were obtained in the splint showing again anatomic reduction. The patient was then sent for standard radiographs which show that the tibiotalar joint is well reduced. There is no subluxation on lateral. There is probably 2 mm of widening of the medial clear space, however the talus is well seated under the tibia. Plan is for the patient to be admitted to the hospitalist service. He will be on a heparin drip and we will see if this could be fixed on Monday if his swelling allows. Otherwise, more likely a 10-14-day window for the soft tissues have calmed down to allow safer surgery. I emphasized the importance of being compliant with strict non-weightbearing status and elevation.
[2018-08-07 18:37] LABS: INR 1.01; PROTHROMBIN TIME 13.4 SECONDS (12.1-14.4)
[2018-08-07 18:39] LABS: PARTIAL THROMBOPLASTIN TIME 65.8 SECONDS (25.4-37.6)
[2018-08-07 22:00] VITALS: BP 136/75
[2018-08-08] MEDS: NS 1,000 ML IV SCH ×2 (00:24→10:01)
[2018-08-08 02:00] VITALS: BP 154/89
[2018-08-08 06:00] VITALS: BP 152/76
[2018-08-08 06:24] LABS: BASO # 0.1 10^3/uL (0.0-0.2); BASO % 0.7 % (0.0-1.0); EOS # 0.1 10^3/uL (0.0-0.50); EOS % 1.2 % (0.0-3.0); HEMATOCRIT 37.9 % (42.0-52.0); HEMOGLOBIN 12.4 g/dl (13.5-17.5); LYMPH # 1.9 10^3/uL (1.5-4.5); LYMPH % 18.2 % (24.0-44.0); MEAN CORPUSCULAR HEMOGLOBIN 32.3 pg (27.0-33.0); MEAN CORPUSCULAR HGB CONC 32.7 g/dl (32.0-36.5); MEAN CORPUSCULAR VOLUME 98.7 fl (80.0-96.0); MONO % 10.1 % (0.0-5.0); NEUTROPHILS # 7.1 10^3/uL (1.8-7.7); NEUTROPHILS % 69.2 % (36.0-66.0); PLATELET COUNT, AUTOMATED 170 10^3/uL (150-450); RED BLOOD COUNT 3.84 10^6/uL (4.30-6.10); WHITE BLOOD COUNT 10.2 10^3/uL (4.0-10.0)
[2018-08-08 06:41] LABS: BLOOD UREA NITROGEN 13 MG/DL (7-18); CALCIUM LEVEL 8.1 MG/DL (8.5-10.1); CARBON DIOXIDE LEVEL 29 MEQ/L (21-32); CHLORIDE LEVEL 105 MEQ/L (98-107); CREATININE FOR GFR 1.13 MG/DL (0.70-1.30); GLOMERULAR FILTRATION RATE > 60.0 (>56); GLUCOSE, FASTING 105 MG/DL (70-100); POTASSIUM SERUM 4.2 MEQ/L (3.5-5.1); SODIUM LEVEL 140 MEQ/L (136-145)
[2018-08-08] MEDS: SYMBICORT 160/4.5MCG INHALER 6GM INH SCH ×2 (07:25→21:00)
[2018-08-08] MEDS: CitaloPRAM (CeleXA) 10 MG TABLET PO SCH (09:00)
[2018-08-08] MEDS: OMEPRAZOLE 20 MG CAP PO SCH (09:00)
[2018-08-08] MEDS: MULTIVITAMINS/MINERALS THERAP 1 TAB PO SCH (09:00)
[2018-08-08] MEDS: ALLOPURINOL 300 MG TAB PO SCH (09:00)
[2018-08-08 10:00] VITALS: BP 138/77
[2018-08-08] MEDS: PERCOCET 5MG/325MG TAB PO PRN (10:02)
--- NOTE | 2018-08-08 10:25 | IPNPDOC ---
Subjective Date Seen The patient was seen on 08/08/18. Subjective Chief Complaint/HPI Patient lying comfortably in bed as I entered the room. He has been NPO pending surgery today Constitutional: Denies: Chills, Fever Pulmonary: Denies: Dyspnea, Cough Cardiovascular: Denies: Chest Pain, Palpitations, Orthopnea Gastrointestinal: Denies: Nausea, Vomiting, Abdominal Pain Psych: Reports: Mood Normal Objective Physical Examination General Exam: Positive: Alert, No Acute Distress ENT Exam: Positive: Mucous membr. moist/pink Neck Exam: Positive: Supple Chest Exam: Positive: Clear to auscultation, Normal air movement Heart Exam: Positive: Rate Normal, Normal S1, Normal S2 Abdomen Exam: Positive: Normal bowel sounds, Soft; Negative: Tenderness Male Exam: Positive: Normal Genital Exam Extremity Exam: Negative: Edema Neuro Exam: Positive: Normal Speech Psych Exam: Positive: Mental status NL, Mood NL Assessment /Plan Problems (1) Displaced bimalleolar fracture of right ankle Status: Acute Response to Treatment: Stable Discussed With: Nurse, Patient Problem Specific Plan: Consult Specialist, Monitor Clinically, Repeat Labs Problem Text: 08/08/18: Patient remains splinted pending surgery today. Patient is optimized from a medical standpoint for surgery. Pt splinted, plans for OR likely tomorrow. Ortho managing. Pain controlled. (2) History of pulmonary embolism Status: Chronic Response to Treatment: Stable Discussed With: Patient Problem Specific Plan: Monitor Clinically, Repeat Labs Problem Text: 08/08/18: Remains on heparin drip. Eliquis to be resumed post-op Eliquis held, on heparin drip preoperatively, can resume Eliquis post op. (3) History of DVT (deep vein thrombosis) (4) CKD (chronic kidney disease), stage III Status: Chronic Response to Treatment: Stable (5) Asthma, mild intermittent Status: Chronic Response to Treatment: Stable (6) MICHAEL (obstructive sleep apnea) Status: Chronic Response to Treatment: Stable Problem Specific Plan: Monitor Clinically Problem Text: should bring home CPAP. Plan/VTE VTE Prophylaxis Ordered?: Yes (Heparin ) VS, I&O, 24H, Fishbone Vital Signs/I&O Vital Signs Date Time Temp Pulse Resp B/P (MAP) Pulse Ox O2 Delivery O2 Flow Rate FiO2 08/08/18 10:02 20 08/08/18 10:00 97.8 88 138/77 (97) 96 2.0 08/06/18 10:00 Room Air I&O- Last 24 Hours up to 6 AM 08/08/18 06:00 Intake Total 1506 ml Output Total 2700 ml Balance -1194 ml Laboratory Data 24H LABS Laboratory Tests 2 08/07/18 18:16: Prothrombin Time 13.4, Prothromb Time International Ratio 1.01, Activated Partial Thromboplast Time 65.8H 08/08/18 06:08: Immature Granulocyte % (Auto) 0.6, White Blood Count 10.2H, Red Blood Count 3.84L, Hemoglobin 12.4L, Hematocrit 37.9L, Mean Corpuscular Volume 98.7H, Mean Corpuscular Hemoglobin 32.3, Mean Corpuscular Hemoglobin Concent 32.7, Red Cell Distribution Width 13.6, Platelet Count 170, Neutrophils (%) (Auto) 69.2H, Lymphocytes (%) (Auto) 18.2L, Monocytes (%) (Auto) 10.1H, Eosinophils (%) (Auto) 1.2, Basophils (%) (Auto) 0.7, Neutrophils # (Auto) 7.1, Lymphocytes # (Auto) 1.9, Monocytes # (Auto) 1.0H, Eosinophils # (Auto) 0.1, Basophils # (Auto) 0.1, Nucleated Red Blood Cells % (auto) 0.0, Anion Gap 6L, Glomerular Filtration Rate > 60.0, Blood Urea Nitrogen 13, Creatinine 1.13, Sodium Level 140, Potassium Level 4.2, Chloride Level 105, Carbon Dioxide Level 29, Calcium Level 8.1L CBC/BMP Laboratory Tests 08/08/18 06:08 Red Blood Count 3.84 L, Mean Corpuscular Volume 98.7 H, Mean Corpuscular Hemoglobin 32.3, Mean Corpuscular Hemoglobin Concent 32.7, Red Cell Distribution Width 13.6, Neutrophils (%) (Auto) 69.2 H, Lymphocytes (%) (Auto) 18.2 L, Monocytes (%) (Auto) 10.1 H, Eosinophils (%) (Auto) 1.2, Basophils (%) (Auto) 0.7, Neutrophils # (Auto) 7.1, Lymphocytes # (Auto) 1.9, Monocytes # (Auto) 1.0 H, Eosinophils # (Auto) 0.1, Basophils # (Auto) 0.1, Calcium Level 8.1 L SKYLER GAUTAM [facility] Aug 08, 2018 10:25
[2018-08-08 14:00] VITALS: BP 122/70
[2018-08-08] MEDS: ONDANSETRON 4MG/2ML VIAL (J2405) IV PRN (15:59)
[2018-08-08] MEDS ORDERED: MORPHINE 4 MG/ML 1ML VIAL/SYRINGE (J2270) IV PRN ×2 (16:45→23:45)
[2018-08-08 18:00] VITALS: BP 126/73
[2018-08-08] MEDS ORDERED: fentaNYL 250 MCG/5 ML INJECTION (J3010) As Ordered ONE (19:57)
[2018-08-08] MEDS ORDERED: PROPOFOL 200 MG/20 ML VIAL As Ordered ONE (19:57)
[2018-08-08] MEDS ORDERED: MIDAZOLAM INJ 2 MG/2 ML VIAL (J2250) As Ordered ONE ×2 (19:57→20:09)
[2018-08-08] MEDS ORDERED: ROCURONIUM BROMIDE 50 MG/5 ML VIAL As Ordered ONE (19:57)
[2018-08-08] MEDS ORDERED: LIDOCAINE 2% INJ 100 MG/5 ML SDV (FOR ANES.) As Ordered ONE (19:57)
[2018-08-08] MEDS ORDERED: fentaNYL 100 MCG/2 ML INJECTION (J3010) As Ordered ONE (20:09)
[2018-08-08] MEDS ORDERED: ceFAZolin 1GM INJ (J0690 PER 500MG) As Ordered ONE ×2 (21:26→21:27)
[2018-08-08] MEDS ORDERED: MIDAZOLAM INJ 2 MG/2 ML VIAL (J2250) IV ONE (21:30)
[2018-08-08] MEDS ORDERED: fentaNYL 100 MCG/2 ML INJECTION (J3010) IV ONE (21:30)
[2018-08-08] MEDS ORDERED: PHENYLephrine HCL 500 MCG/5 ML (100MCG/ML) SYRINGE (J2370) As Ordered ONE (21:43)
[2018-08-08] MEDS ORDERED: MIDAZOLAM INJ 2 MG/2 ML VIAL (J2250) IV SCH (21:45)
[2018-08-08] MEDS ORDERED: fentaNYL 100 MCG/2 ML INJECTION (J3010) IV SCH (21:45)
[2018-08-08] MEDS ORDERED: ePHEDrine SULFATE 25 MG/5 ML(5MG/ML) SYRINGE As Ordered ONE (21:58)
[2018-08-08] MEDS ORDERED: LEVALBUTEROL 1.25 MG/0.5 ML CONCENTRATE NEB As Ordered ONE (23:26)
[2018-08-08] MEDS ORDERED: ONDANSETRON 4MG/2ML VIAL (J2405) As Ordered ONE (23:29)
[2018-08-08] MEDS ORDERED: HYDROMORPHONE HCL 0.5 MG/ 0.5 ML SYRINGE (J1170 PER 1) IV PRN (23:30)
[2018-08-08] MEDS ORDERED: ONDANSETRON 4MG/2ML VIAL (J2405) IV PRN (23:30)
[2018-08-08] MEDS ORDERED: fentaNYL 100 MCG/2 ML INJECTION (J3010) IV PRN (23:30)
[2018-08-08] MEDS ORDERED: PERCOCET 5MG/325MG TAB PO PRN (23:30)
[2018-08-08] MEDS ORDERED: LR 1,000 ML IV SCH (23:30)
[2018-08-08] MEDS ORDERED: oxyCODONE 5MG TAB PO PRN (23:45)
[2018-08-08] MEDS ORDERED: LEVALBUTEROL 1.25 MG/0.5 ML CONCENTRATE NEB INH ONE (23:45)
[2018-08-08] MEDS ORDERED: ACETAMINOPHEN TAB 650MG DOSE (2X325MG) PO PRN (23:45)
[2018-08-09] VITALS (8 sets, daily range): BP systolic 122–142; BP diastolic 60–78
[2018-08-09] MEDS: NS 1,000 ML IV SCH ×2 (01:01→12:17)
[2018-08-09] MEDS: OMEPRAZOLE 20 MG CAP PO SCH ×2 (01:01→09:34)
[2018-08-09] MEDS: ceFAZolin SOD 1 GM in D5W MINI-BAG PLUS 50 ML IV SCH ×2 (04:07→13:02)
[2018-08-09] MEDS: oxyCODONE 5MG TAB PO PRN ×2 (04:08→10:37)
--- NOTE | 2018-08-09 04:23 | REP ---
Clinical: Fracture fixation. Technique: Intraoperative fluoroscopic imaging using portable C-arm technique. Findings: Four intraoperative fluoroscopic images demonstrate the patient to be status post satisfactory open reduction and fixation for lateral malleolar fracture. Total fluoroscopic time 39 seconds. Impression: Status post satisfactory open reduction and fixation for lateral malleolar fracture. Electronically Signed by Jagdeep Aguirre MD 08/09/2018 04:14 A
[2018-08-09] MEDS ORDERED: OXYC-517 PO (06:51)
[2018-08-09] MEDS ORDERED: LIDOCAINE 1% MDV 20ML VIAL ONE ×2 (08:09→08:28)
[2018-08-09] MEDS ORDERED: ROPIvacaine 0.5% 30 ML INJECTION (J2795 PER 1MG) ONE ×2 (08:09→08:28)
[2018-08-09] MEDS ORDERED: dexameTHASONE 10 MG/1 ML VIAL PRES.FREE (J1100) ONE ×2 (08:09→08:28)
[2018-08-09] MEDS: SYMBICORT 160/4.5MCG INHALER 6GM INH SCH (08:35)
--- NOTE | 2018-08-09 08:38 | IPNPDOC ---
Subjective Date Seen The patient was seen on 08/09/18. Subjective Chief Complaint/HPI Pt this morning is feeling pretty well. Nausea has resolved, pain is controlled. He hasn't been out of bed this morning and is waiting for PT to come in. He hopes to go home today. Ortho is fine with this if he does well with PT. General: Denies: Fatigue Constitutional: Denies: Chills, Fever Pulmonary: Denies: Dyspnea, Cough Cardiovascular: Denies: Chest Pain, Palpitations Gastrointestinal: Denies: Nausea, Vomiting Genitourinary: Denies: Dysuria Neurological: Denies: Numbness Psych: Reports: Mood Normal Objective Physical Examination General Exam: Positive: Alert, No Acute Distress Neck Exam: Positive: Supple Chest Exam: Positive: Clear to auscultation, Normal air movement Heart Exam: Positive: Rate Normal, Normal S1, Normal S2 Abdomen Exam: Positive: Normal bowel sounds, Soft; Negative: Tenderness Male Exam: Positive: Normal Genital Exam Extremity Exam: Positive: Other (RLE wrapped, splinted to knee); Negative: Edema Neuro Exam: Positive: Normal Speech Psych Exam: Positive: Mental status NL, Mood NL Assessment /Plan Problems (1) Displaced bimalleolar fracture of right ankle Status: Acute Response to Treatment: Stable Discussed With: Nurse, Patient Problem Specific Plan: Consult Specialist, Monitor Clinically, Repeat Labs Problem Text: 08/09 POD2, Pain managed, counseled on bowel care. PT today, home when safe. 08/08/18: Patient remains splinted pending surgery today. Patient is optimized from a medical standpoint for surgery. Pt splinted, plans for OR likely tomorrow. Ortho managing. Pain controlled. (2) History of pulmonary embolism Status: Chronic Response to Treatment: Stable Discussed With: Patient Problem Specific Plan: Monitor Clinically, Repeat Labs Problem Text: 08/08/18: Remains on heparin drip. Eliquis to be resumed post-op, Ortho - ok with resume per Ortho. Eliquis held, on heparin drip preoperatively, can resume Eliquis post op. (3) History of DVT (deep vein thrombosis) Status: Chronic Problem Specific Plan: Monitor Clinically (4) CKD (chronic kidney disease), stage III Status: Chronic Response to Treatment: Stable Problem Specific Plan: Monitor Clinically (5) Asthma, mild intermittent Status: Chronic Response to Treatment: Stable Problem Specific Plan: Monitor Clinically (6) MICHAEL (obstructive sleep apnea) Status: Chronic Response to Treatment: Stable Problem Specific Plan: Monitor Clinically Problem Text: should bring home CPAP. Plan/VTE VTE Prophylaxis Ordered?: Yes (Heparin ) VS, I&O, 24H, Fishbone Vital Signs/I&O Vital Signs Date Time Temp Pulse Resp B/P (MAP) Pulse Ox O2 Delivery O2 Flow Rate FiO2 08/09/18 04:40 98.8 111 20 141/78 (99) 98 2.0 08/06/18 10:00 Room Air I&O- Last 24 Hours up to 6 AM 08/09/18 06:00 Intake Total 3580 ml Output Total 2275 ml Balance 1305 ml FABIO MCNEILL PA-C Aug 09, 2018 08:39
[2018-08-09] MEDS ORDERED: APIXABAN 5 MG TAB (ELIQUIS) PO SCH (09:00)
[2018-08-09] MEDS: MULTIVITAMINS/MINERALS THERAP 1 TAB PO SCH (09:34)
[2018-08-09] MEDS: ALLOPURINOL 300 MG TAB PO SCH (09:34)
[2018-08-09] MEDS: CitaloPRAM (CeleXA) 10 MG TABLET PO SCH (09:34)
--- NOTE | 2018-08-10 05:47 | DSES ---
DATE OF ADMISSION: 08/06/2018 DATE OF DISCHARGE: 08/09/2018 PRIMARY CARE PROVIDER: Keiko Vizcaino PA-C ATTENDING TODAY: Yady Lott DO HISTORY: This is a 57-year-old male patient who resides at home with his , who fell, resulting in right ankle pain. He was seen in the emergency room and found to have a bimalleolar right ankle fracture. Orthopedics was consulted and planned for operating room on 08/09/2018. The patient's Eliquis was held. He was placed on heparin for anticoagulation given his history of deep venous thrombosis (DVT) and pulmonary embolism (PE). He underwent open reduction, internal fixation on 08/08/[address] Mello. Patient tolerated the procedure well. Has done well postoperatively. He has been cleared by physical therapy. His routine at-home medications have been resumed, including his Eliquis for anticoagulation. DISCHARGE DIAGNOSES: Include: 1. Fall with right ankle bimalleolar fracture. 2. History of pulmonary embolism and deep venous thrombosis. 3. Chronic kidney disease stage III. 4. Morbid obesity. 5. Obstructive sleep apnea. 6. Asthma. DISCHARGE MEDICATIONS: Include: - albuterol sulfate two puffs inhaled every 6 hours as needed for shortness of breath - Eliquis 5 mg by mouth twice a day - allopurinol 300 mg by mouth daily - Symbicort 160/4.5 two puffs inhaled twice a day - citalopram 10 mg by mouth daily - vitamin D 50,000 units by mouth once weekly - vitamin D one tablet daily - omeprazole 40 mg by mouth twice a day Followup with Dr. Mello on 08/15/2018 at 1 p.m. Activity should be per orthopedics. Diet is low fat, no added salt.
--- NOTE | 2018-08-11 09:20 | RO ---
DATE OF PROCEDURE: 08/08/2018 PREPROCEDURE DIAGNOSIS: Left ligamentous supination - external rotation (SER) 4 ankle fracture. POSTPROCEDURE DIAGNOSIS: Left ligamentous supination - external rotation (SER) 4 ankle fracture. PROCEDURE: Open reduction internal fixation, left distal fibula. SURGEON: Dr. Jeanie Mello. LAUNDROMAT WORKER: None. ANESTHESIA: General endotracheal anesthesia (CIGAR HEAD PUNCHER) ESTIMATED BLOOD LOSS: 50 mL. COMPLICATIONS: None. CONDITION: Stable to recovery. TOURNIQUET TIME: 54 minutes. IMPLANTS: Synthes one-third tubular plate 7-hole with associates screws. INDICATION: Salomon Hampton is a 57-year-old male who sustained a mechanical fall resulting in a ligamentous SER4 ankle fracture. The risks and benefits of surgery were discussed with the patient in detail and include but are not limited to infection, damage to nerves and blood vessels, need for additional procedures, continued pain and stiffness, blot clot, malunion and nonunion. Patient decided to proceed with surgery and informed consent was obtained in the office. DESCRIPTION OF PROCEDURE: The patient was met in the preoperative holding area and his right lower extremity was marked as the correct operative site. The soft tissues were mildly swelling but found to be amenable for surgery. Patient's right lower extremity was signed and anesthesiologist performed a right-sided nerve block. Patient was then taken to the operating room and placed in the supine position on the operating room table. Bony prominences were well padded. A well-padded tourniquet was placed in the right upper thigh. Chlorhexidine scrub was performed of the right lower extremity and the limb was prepped and draped in the normal sterile fashion. Antibiotics were given within 60 minutes prior to the incision. At this point, an official time-out was held with the correct patient, operative site and procedure were verified. The leg was exsanguinated and the tourniquet was inflated to 250 mmHg. An incision was made over the posterolateral aspect of the distal fibula. Careful dissection to the level of the fracture was performed. It was cleaned of hematoma and debris. Reduction was performed using the pointed reduction clamp. Reduction was confirmed on AP and lateral mortise views. It was held in place with a 0.062 K-wire. At this point, a 3.5 mm lag screw was placed across the fracture site. There was nice compression. A 7-hole, Synthes one-third tubular plate was selected. It was secured using 3.5 mm screws proximally and 4.0 mm cancellous screws distally. The ankle was stressed under life fluoroscopy and there was no widening of the medial clear space following open reduction internal fixation (ORIF) of the fibula. There was copious irrigation through the wound and soft tissues were closed using #3-0 Vicryl and #3-0 nylon. Sterile dressing was applied and patient was placed into a well-padded splint. He was extubated and transferred to the recovery room in stable condition. PLAN: Patient will be non-weightbearing on the right lower extremity. He will be on Eliquis for deep venous thrombosis (DVT) prophylaxis which he was on preoperatively. We will see him back in 1 week for a wound check. Patient had been admitted to the medical service prior and was re-admitted for further care.
== END 2018-08-09 17:03 | disposition home or self-care (01) | DRG 494 ==
LOC: EDBD 09:43 → M ED 09:43 → M ED INP 15:45 → M MSPAV 08-07 17:00 → M MS5PR 08-08 19:19 → M MSPAV 08-08 21:14 → M MS5PR 08-09 00:05
PROVIDERS: ADMIT Internal Medicine; ATTEND Family Medicine
PROC: 0QSK04Z Reposition Left Fibula with Internal Fixation Device, Open Approach (ICD-10-PCS; principal; 2018-08-08 17:30)
DX: S82.842A Displaced bimalleolar fracture of left lower leg, initial encounter for closed fracture (principal); N18.3 Chronic kidney disease, stage 3 (moderate); E66.01 Morbid (severe) obesity due to excess calories; J45.20 Mild intermittent asthma, uncomplicated; G47.33 Obstructive sleep apnea (adult) (pediatric); Z86.718 Personal history of other venous thrombosis and embolism; Z86.711 Personal history of pulmonary embolism; Z85.47 Personal history of malignant neoplasm of testis; Z79.01 Long term (current) use of anticoagulants; I12.9 Hypertensive chronic kidney disease with stage 1 through stage 4 chronic kidney disease, or unspecified chronic kidney disease; Z79.899 Other long term (current) drug therapy; Z87.891 Personal history of nicotine dependence; F32.9 Major depressive disorder, single episode, unspecified; W18.09XA Striking against other object with subsequent fall, initial encounter; Y92.009 Unspecified place in unspecified non-institutional (private) residence as the place of occurrence of the external cause

== ENCOUNTER → 2018-09-25 | Outpatient (CLI) | payer OTHER ==
[~2018-09-25] MED LIST changes: +ACET300T47 PO; -CITA-229 PO; +CITA10TA6 PO; -CODE30TA3 PO; -NAPR-50 PO; +NAPR-837 PO; +OXYC-517 PO
--- NOTE | 2018-09-25 12:16 | REP ---
BILATERAL MAMMOGRAM AND LEFT BREAST ULTRASOUND: HISTORY: Palpable lump left retroareolar region. MLO and CC views of the bilateral breasts performed. There is mild asymmetric fibroglandular tissue in the left retroareolar regio compared to the right. This is compatible with mild left gynecomastia. No suspicious mass or clustered microcalcifications are seen. Real-time sonographic evaluation of the left retroareolar region is performed. There is hypoechoic fibroglandular tissue in the left retroareolar region compatible with gynecomastia. IMPRESSION: BIRADS 2: BI-RADS/ACR category 2 mammogram. Benign Findings. ACR 2 benign. There are mammographic and sonographic findings of asymmetric left gynecomastia of a mild degree. No suspicious mass or clustered microcalcifications. Patient letter M2. Electronically Signed by Seun Ghosh MD 09/26/2018 04:37 P
== END ==
LOC: M RAD 08:07
PROVIDERS: ATTEND Family Medicine
DX: Z86.018 Personal history of other benign neoplasm (principal)
CPT/HCPCS: 76642; 77066; G0279

== ENCOUNTER 2018-10-10 13:42 | Emergency (ER) | payer OTHER ==
[~2018-10-10] VITALS: Ht 185.4 cm; Wt 148.5 kg
[2018-10-10] MEDS ORDERED: ENOX120I3 SC (15:14)
[2018-10-10] MEDS ORDERED: ENOXAPARIN 100MG/1ML SYRINGE (J1650) SC ONE (15:15)
[2018-10-10 15:47] VITALS: BP 149/88
== END 2018-10-10 15:47 | disposition home or self-care (01) ==
LOC: M ED 13:42
DX: I82.401 Acute embolism and thrombosis of unspecified deep veins of right lower extremity (principal); Z85.47 Personal history of malignant neoplasm of testis; Z86.711 Personal history of pulmonary embolism; Z86.718 Personal history of other venous thrombosis and embolism; Z79.899 Other long term (current) drug therapy; Z79.01 Long term (current) use of anticoagulants
CPT/HCPCS: 99283; J1650

== ENCOUNTER → 2018-10-11 | Outpatient (REF) | payer OTHER ==
[~2018-10-11] MED LIST changes: +ENOX120I3 SC
[2018-10-11 20:55] LABS: BASO # 0.1 10^3/uL (0.0-0.2); EOS # 0.3 10^3/uL (0.0-0.50); EOS % 4.3 % (0.0-3.0); HEMATOCRIT 45.9 % (42.0-52.0); HEMOGLOBIN 14.9 g/dl (13.5-17.5); LYMPH # 2.7 10^3/uL (1.5-4.5); LYMPH % 38.7 % (24.0-44.0); MEAN CORPUSCULAR HEMOGLOBIN 32.8 pg (27.0-33.0); MEAN CORPUSCULAR HGB CONC 32.5 g/dl (32.0-36.5); MEAN CORPUSCULAR VOLUME 101.1 fl (80.0-96.0); MONO # 0.9 10^3/uL (0.0-0.8); MONO % 12.9 % (0.0-5.0); NEUTROPHILS # 2.9 10^3/uL (1.8-7.7); NEUTROPHILS % 41.7 % (36.0-66.0); PLATELET COUNT, AUTOMATED 218 10^3/uL (150-450); RED BLOOD COUNT 4.54 10^6/uL (4.30-6.10)
[2018-10-11 21:03] LABS: INR 0.97
[2018-10-11 21:06] LABS: ALBUMIN 3.7 GM/DL (3.2-5.2); ALT/SGPT 17 U/L (12-78); BILIRUBIN,TOTAL 0.6 MG/DL (0.2-1.0); BLOOD UREA NITROGEN 17 MG/DL (7-18); CALCIUM LEVEL 9.2 MG/DL (8.5-10.1); CARBON DIOXIDE LEVEL 29 MEQ/L (21-32); CHLORIDE LEVEL 102 MEQ/L (98-107); CHOLESTEROL LEVEL 218 MG/DL (<200); CHOLESTEROL RISK RATIO 7.785 (<5); CREATININE FOR GFR 1.43 MG/DL (0.70-1.30); GLOMERULAR FILTRATION RATE 53.9 (>56); GLUCOSE, FASTING 103 MG/DL (70-100); HDL CHOLESTEROL 28 MG/DL (>40); NON-HDL-C 190 MG/DL; POTASSIUM SERUM 4.7 MEQ/L (3.5-5.1); SODIUM LEVEL 138 MEQ/L (136-145); TOTAL 25(OH) VITAMIN D 30.6 NG/ML (30.0-100.0); TOTAL PROTEIN 7.7 GM/DL (6.4-8.2); TRIGLYCERIDES LEVEL 478 MG/DL (<150)
[2018-10-11 21:11] LABS: MALB URINE SIEMENS 7.7 MG/L; MAU/CREAT RATIO 3.9 MCG/MG (0.0-30.0)
== END ==
LOC: M SFHCADAM 11:15
PROVIDERS: ATTEND Physician Assistant Medical
DX: I82.531 Chronic embolism and thrombosis of right popliteal vein (principal); E11.22 Type 2 diabetes mellitus with diabetic chronic kidney disease; E55.9 Vitamin D deficiency, unspecified; N18.3 Chronic kidney disease, stage 3 (moderate); E66.01 Morbid (severe) obesity due to excess calories; K21.9 Gastro-esophageal reflux disease without esophagitis; Z85.47 Personal history of malignant neoplasm of testis

== ENCOUNTER → 2018-10-24 | Outpatient (REF) | payer OTHER ==
[2018-10-24 12:40] LABS: INR 1.86; PROTHROMBIN TIME 21.8 SECONDS (12.1-14.4)
== END ==
LOC: M SFHCADAM 09:54
PROVIDERS: ATTEND Physician Assistant Medical
DX: I82.531 Chronic embolism and thrombosis of right popliteal vein (principal)

== ENCOUNTER → 2018-11-22 | Outpatient (REF) | payer OTHER ==
[~2018-11-22] MED LIST changes: +ASPI81CH33 PO; +SIMV40TA2 PO
[2018-11-22 13:06] LABS: ALBUMIN 3.8 GM/DL (3.2-5.2); BILIRUBIN,TOTAL 0.6 MG/DL (0.2-1.0); CALCIUM LEVEL 9.2 MG/DL (8.5-10.1); CHOLESTEROL RISK RATIO 4.457 (<5); CREATININE FOR GFR 1.42 MG/DL (0.70-1.30); GLOMERULAR FILTRATION RATE 54.3 (>56); POTASSIUM SERUM 4.7 MEQ/L (3.5-5.1); TOTAL PROTEIN 8.1 GM/DL (6.4-8.2); URIC ACID 4.9 MG/DL (3.5-7.2)
[2018-11-22 13:14] LABS: HEMOGLOBIN A1c 6.6 %
== END ==
LOC: M SFHCADAM 08:17
PROVIDERS: ATTEND Family Medicine
DX: E11.22 Type 2 diabetes mellitus with diabetic chronic kidney disease (principal); M1A.3790 Chronic gout due to renal impairment, unspecified ankle and foot, without tophus (tophi)

== ENCOUNTER → 2018-11-28 | Outpatient (CLI) | payer SELFPAY ==
--- NOTE | 2018-11-28 12:10 | REP ---
RIGHT LOWER EXTREMITY DUPLEX DOPPLER VENOUS ULTRASOUND: Real-time compression and duplex Doppler interrogation of the right lower extremity deep venous systems is performed. Right common femoral and superficial femoral veins are fully compressible with transducer pressure and demonstrate normal spontaneous and phasic flow without evidence of deep venous thrombosis. However, there is partial thrombosis of the peripheral right popliteal vein and tibioperoneal trunk. IMPRESSION: Partial thrombosis peripheral right popliteal vein. Electronically Signed by Seun Ghosh MD 11/28/2018 04:25 P
== END ==
LOC: M RAD 10:19
PROVIDERS: ATTEND Internal Medicine
DX: I82.431 Acute embolism and thrombosis of right popliteal vein (principal)

== ENCOUNTER → 2018-12-19 | Outpatient (REF) ==
--- NOTE | 2018-12-20 02:20 | REP ---
Clinical: Pain and disability. Technique: AP, lateral, bilateral oblique views of the right ankle. Comparison: 08/06/2018. Findings: Evidence of prior open reduction and fixation for distal fibular fracture. The osseous structures demonstrate age-related degenerative changes. Overlying soft tissue swelling noted. Impression: Stable, appropriate appearance to the distal fibular fracture and hardware. Soft-tissue swelling. Electronically Signed by Jagdeep Aguirre MD 12/20/2018 02:11 A
== END ==
LOC: M SMT 13:33
PROVIDERS: ATTEND Internal Medicine
DX: M51.36 Other intervertebral disc degeneration, lumbar region (principal)

== ENCOUNTER → 2019-01-08 | Outpatient (REF) | payer OTHER ==
[2019-01-08 12:25] LABS: BASO # 0.1 10^3/uL (0.0-0.2); BASO % 1.5 % (0.0-1.0); EOS # 0.4 10^3/uL (0.0-0.50); EOS % 4.9 % (0.0-3.0); HEMOGLOBIN 14.5 g/dl (13.5-17.5); LYMPH # 2.3 10^3/uL (1.5-4.5); LYMPH % 29.1 % (24.0-44.0); MEAN CORPUSCULAR HEMOGLOBIN 32.2 pg (27.0-33.0); MEAN CORPUSCULAR HGB CONC 32.2 g/dl (32.0-36.5); MEAN CORPUSCULAR VOLUME 99.8 fl (80.0-96.0); MONO % 12.9 % (0.0-5.0); NEUTROPHILS # 4.1 10^3/uL (1.8-7.7); NEUTROPHILS % 51.3 % (36.0-66.0); PLATELET COUNT, AUTOMATED 198 10^3/uL (150-450); RED BLOOD COUNT 4.51 10^6/uL (4.30-6.10)
[2019-01-08 14:46] LABS: ERYTHROCYTE SEDIMENTATION RATE 17 mm/hr (0-20)
== END ==
LOC: M LABDRAW1 10:34
PROVIDERS: ATTEND Orthopaedic Surgery
DX: S82.61XD Displaced fracture of lateral malleolus of right fibula, subsequent encounter for closed fracture with routine healing (principal); W18.30XD Fall on same level, unspecified, subsequent encounter; Y92.009 Unspecified place in unspecified non-institutional (private) residence as the place of occurrence of the external cause

== ENCOUNTER 2019-01-24 11:46 | Outpatient (RCR) | payer MEDICAID, SELFPAY ==
[~2019-01-24 11:46] MED LIST changes: -OMEP40CA2 PO; +OMEP40CA97 PO
== END 2019-01-26 ==
LOC: M PT 11:46
PROVIDERS: ATTEND Physician Assistant Medical
DX: I89.0 Lymphedema, not elsewhere classified (principal)

== ENCOUNTER 2019-02-12 08:22 | Outpatient (RCR) | payer SELFPAY ==
[~2019-02-12 08:22] MED LIST changes: +OMEP40CA2 PO; -OMEP40CA97 PO
[2019-02-22] MEDS ORDERED: WARF-23 PO (10:06)
== END 2019-02-25 ==
LOC: M PT 08:22
PROVIDERS: ATTEND Physician Assistant Medical
DX: I89.0 Lymphedema, not elsewhere classified (principal)

== ENCOUNTER 2019-03-26 09:09 | Outpatient (RCR) | payer MEDICAID, SELFPAY ==
[~2019-03-26 09:09] MED LIST changes: -OMEP40CA2 PO; +OMEP40CA97 PO; +WARF-23 PO
== END 2019-03-28 ==
LOC: M PT 09:09
PROVIDERS: ATTEND Physician Assistant Medical
DX: I89.0 Lymphedema, not elsewhere classified (principal)

== ENCOUNTER 2019-04-04 09:00 | Outpatient (RCR) | payer MEDICAID ==
[~2019-04-04 09:00] MED LIST changes: -SIMV40TA2 PO; +SIMV40TA20 PO
== END 2019-04-27 ==
LOC: M PT 09:00
PROVIDERS: ATTEND Physician Assistant Medical
DX: I89.0 Lymphedema, not elsewhere classified (principal)

== ENCOUNTER → 2019-04-18 | Outpatient (REF) | payer MEDICAID ==
[~2019-04-18] MED LIST changes: +SIMV40TA2 PO; -SIMV40TA20 PO
[2019-04-18 13:14] LABS: BASO # 0.1 10^3/uL (0.0-0.2); BASO % 1.4 % (0.0-1.0); EOS # 0.4 10^3/uL (0.0-0.5); EOS % 5.5 % (0.0-3.0); HEMATOCRIT 44.9 % (42.0-52.0); HEMOGLOBIN 14.1 g/dl (13.5-17.5); LYMPH # 2.2 10^3/uL (1.5-5.0); LYMPH % 31.8 % (24.0-44.0); MEAN CORPUSCULAR HEMOGLOBIN 31.5 pg (27.0-33.0); MEAN CORPUSCULAR HGB CONC 31.4 g/dl (32.0-36.5); MEAN CORPUSCULAR VOLUME 100.2 fl (80.0-96.0); MONO # 0.8 10^3/uL (0.0-0.8); MONO % 10.6 % (0.0-5.0); NEUTROPHILS # 3.5 10^3/uL (1.5-8.5); NEUTROPHILS % 50.3 % (36.0-66.0); PLATELET COUNT, AUTOMATED 224 10^3/uL (150-450); RED BLOOD COUNT 4.48 10^6/uL (4.30-6.10); WHITE BLOOD COUNT 7.1 10^3/uL (4.0-10.0)
[2019-04-18 13:40] LABS: C REACTIVE PROTEIN QUANTITATIV 0.61 MG/DL (0.00-0.30); URIC ACID 4.7 MG/DL (3.5-7.2)
[2019-04-18 13:51] LABS: ALBUMIN 3.8 GM/DL (3.2-5.2); BILIRUBIN,TOTAL 0.4 MG/DL (0.2-1.0); CALCIUM LEVEL 9.5 MG/DL (8.8-10.2); CHOLESTEROL RISK RATIO 3.452 (<5); CREATININE FOR GFR 1.44 MG/DL (0.70-1.30); GLOMERULAR FILTRATION RATE 53.3 (>49); POTASSIUM SERUM 4.7 MEQ/L (3.5-5.1); THYROID STIMULATING HORMONE 0.81 uIU/ML (0.358-3.740); TOTAL 25(OH) VITAMIN D 29.4 NG/ML (30.0-100.0); TOTAL PROTEIN 7.6 GM/DL (6.4-8.2)
[2019-04-18 14:10] LABS: HEMOGLOBIN A1c 6.2 %
== END ==
LOC: M SFHCADAM 10:55
PROVIDERS: ATTEND Physician Assistant Medical
DX: E78.1 Pure hyperglyceridemia (principal); E55.9 Vitamin D deficiency, unspecified; K75.81 Nonalcoholic steatohepatitis (NASH); E66.01 Morbid (severe) obesity due to excess calories; F32.5 Major depressive disorder, single episode, in full remission

== ENCOUNTER → 2019-05-02 | Outpatient (REF) | payer MEDICAID, OTHER ==
[~2019-05-02] MED LIST changes: -SIMV40TA2 PO; +SIMV40TA20 PO
== END ==
LOC: M SFHCADAM 14:56
PROVIDERS: ATTEND Physician Assistant Medical
DX: M25.50 Pain in unspecified joint (principal)

== ENCOUNTER → 2019-06-04 | Outpatient (REF) | payer OTHER ==
[2019-06-04 16:27] LABS: APPEARANCE, URINE CLEAR (CLEAR); BACTERIA, URINE AUTO NEGATIVE (NEGATIVE); BILIRUBIN, URINE AUTO NEGATIVE (NEGATIVE); BLOOD, URINE BLOOD NEGATIVE (NEGATIVE); COLOR, URINE YELLOW (YELLOW); GLUCOSE, URINE (UA) AUTO NEGATIVE (NEGATIVE); KETONE, URINE AUTO NEGATIVE (NEGATIVE); LEUKOCYTE ESTERASE, URINE AUTO NEGATIVE (NEGATIVE); MUCUS, URINE SMALL (NEGATIVE); NITRITE, URINE AUTO NEGATIVE (NEGATIVE); PROTEIN, URINE AUTO NEGATIVE (NEGATIVE); RBC, URINE AUTO 0 /HPF (0-3); SPECIFIC GRAVITY URINE AUTO 1.028 (1.002-1.035); SQUAMOUS EPITHELIAL CELL UR AU 0 /HPF (0-6); UROBILINOGEN, URINE AUTO 0.2 mg/dL (0.0-2.0); WBC, URINE AUTO 0 /HPF (0-3)
== END ==
LOC: M SFHCADAM 13:28
PROVIDERS: ATTEND Physician Assistant Medical
DX: Z79.01 Long term (current) use of anticoagulants (principal); R31.0 Gross hematuria

== ENCOUNTER 2019-10-12 15:59 | Emergency (ER) | payer OTHER ==
[~2019-10-12] VITALS: Ht 185.4 cm; Wt 165.9 kg
[~2019-10-12 15:59] MED LIST changes: +CYCL-707 PO; -CYCL10TA PO
[2019-10-12 16:57] LABS: BASO # 0.1 10^3/uL (0.0-0.2); BASO % 1.4 % (0.0-1.0); EOS # 0.3 10^3/uL (0.0-0.5); EOS % 4.3 % (0.0-3.0); HEMOGLOBIN 12.1 g/dl (13.5-17.5); LYMPH # 2.4 10^3/uL (1.5-5.0); LYMPH % 33.3 % (24.0-44.0); MEAN CORPUSCULAR HEMOGLOBIN 30.4 pg (27.0-33.0); MONO # 0.9 10^3/uL (0.0-0.8); MONO % 11.7 % (0.0-5.0); NEUTROPHILS # 3.5 10^3/uL (1.5-8.5); NEUTROPHILS % 48.7 % (36.0-66.0); PLATELET COUNT, AUTOMATED 184 10^3/uL (150-450); RED BLOOD COUNT 3.98 10^6/uL (4.30-6.10); WHITE BLOOD COUNT 7.2 10^3/uL (4.0-10.0)
[2019-10-12] MEDS ORDERED: ISOVUE-370 76% 100ML VIAL As Ordered ONE (17:06)
[2019-10-12 17:11] LABS: INR 2.2; PARTIAL THROMBOPLASTIN TIME 37.5 SECONDS (25.0-38.4); PROTHROMBIN TIME 24.2 SECONDS (11.8-14.0)
[2019-10-12 17:11] LABS: ALBUMIN 3.3 GM/DL (3.2-5.2); BILIRUBIN,DIRECT 0.1 MG/DL (0.0-0.2); BILIRUBIN,TOTAL 0.4 MG/DL (0.2-1.0); TOTAL PROTEIN 7.2 GM/DL (6.4-8.2)
--- NOTE | 2019-10-12 17:32 | REPVR ---
PROCEDURE INFORMATION: Exam: CT Abdomen And Pelvis With Contrast Exam date and time: 10/12/2019 4:59 PM Age: 58 years old Clinical indication: Abdominal pain; Additional info: Luq pain TECHNIQUE: Imaging protocol: Computed tomography of the abdomen and pelvis with intravenous contrast. Axial, coronal and sagittal reformatted images were created and reviewed. Radiation optimization: All CT scans at this facility use at least one of these dose optimization techniques: automated exposure control; mA and/or kV adjustment per patient size (includes targeted exams where dose is matched to clinical indication); or iterative reconstruction. Contrast material: ISOVUE 370; Contrast volume: 100 ml; Contrast route: IV; COMPARISON: No relevant prior studies available. FINDINGS: Lungs: Linear stranding and groundglass at the lung bases, likely due to atelectasis and/or scarring. Mild peribronchial thickening, suggestive of airway inflammation. Mediastinum: Small hiatal hernia. Liver: Mild hepatomegaly. Diffuse hepatic steatosis. Gallbladder and bile ducts: No radiodense gallstones. No biliary ductal dilatation. Pancreas: Unremarkable. Spleen: Unremarkable. Adrenals: Unremarkable. Kidneys and ureters: No mass. No radiodense calculi. No hydronephrosis. Stomach and bowel: No bowel wall thickening. No obstruction. No pneumatosis. Appendix: Normal. Intraperitoneal space: No free fluid. No organized fluid collection. No free air. Vasculature: Mild atherosclerotic disease. No aneurysm or dissection. Lymph nodes: No pathologically enlarged lymph nodes. Bladder: Mild circumferential urinary bladder wall thickening, likely secondary to underdistention. Reproductive: Unremarkable. Bones/joints: No acute osseous abnormality. Osteopenia. Degenerative changes. Soft tissues: Small, fat containing umbilical hernia. IMPRESSION: 1. No CT evidence of acute intra-abdominal or pelvic pathology. 2. Additional findings, as above. Electronically signed by: Peewee Bailey On 10/12/2019 17:32:05 PM
[2019-10-12] MEDS ORDERED: MAALOX 30 ML SUSP *UDC PO ONE (18:00)
[2019-10-12] MEDS ORDERED: SIME180C PO (18:06)
[2019-10-12 18:11] VITALS: BP 156/84
[2019-11-08] MEDS ORDERED: VITA50005 PO (15:15)
== END 2019-10-12 18:15 | disposition home or self-care (01) ==
LOC: M ED 15:59
DX: K44.9 Diaphragmatic hernia without obstruction or gangrene (principal); K76.0 Fatty (change of) liver, not elsewhere classified; J44.9 Chronic obstructive pulmonary disease, unspecified; K21.9 Gastro-esophageal reflux disease without esophagitis; Z85.47 Personal history of malignant neoplasm of testis; Z86.711 Personal history of pulmonary embolism; Z79.899 Other long term (current) drug therapy; Z79.82 Long term (current) use of aspirin; Z79.01 Long term (current) use of anticoagulants
CPT/HCPCS: 36415; 74177; 80047; 80076; 81001; 83690; 85025; 85610; 85730; 99284; Q9967

== ENCOUNTER → 2019-10-16 | Outpatient (REF) | payer OTHER ==
[~2019-10-16] MED LIST changes: +SIME180C PO
== END ==
LOC: M SFHCADAM 09:09
PROVIDERS: ATTEND Physician Assistant Medical
DX: Z79.01 Long term (current) use of anticoagulants (principal); E66.01 Morbid (severe) obesity due to excess calories; K21.9 Gastro-esophageal reflux disease without esophagitis; E11.22 Type 2 diabetes mellitus with diabetic chronic kidney disease; I26.99 Other pulmonary embolism without acute cor pulmonale; M1A.3790 Chronic gout due to renal impairment, unspecified ankle and foot, without tophus (tophi)

== ENCOUNTER → 2019-10-24 | Outpatient (REF) | payer OTHER ==
[2019-10-24 18:32] LABS: BASO # 0.1 10^3/uL (0.0-0.2); BASO % 1.3 % (0.0-1.0); EOS # 0.4 10^3/uL (0.0-0.5); EOS % 4.9 % (0.0-3.0); HEMATOCRIT 40.6 % (42.0-52.0); HEMOGLOBIN 12.4 g/dl (13.5-17.5); LYMPH # 2.4 10^3/uL (1.5-5.0); LYMPH % 29.9 % (24.0-44.0); MEAN CORPUSCULAR HEMOGLOBIN 29.7 pg (27.0-33.0); MEAN CORPUSCULAR HGB CONC 30.5 g/dl (32.0-36.5); MEAN CORPUSCULAR VOLUME 97.1 fl (80.0-96.0); MONO % 12.7 % (0.0-5.0); NEUTROPHILS # 4.1 10^3/uL (1.5-8.5); NEUTROPHILS % 50.7 % (36.0-66.0); PLATELET COUNT, AUTOMATED 183 10^3/uL (150-450); RED BLOOD COUNT 4.18 10^6/uL (4.30-6.10)
[2019-10-24 18:33] LABS: ALBUMIN 3.7 GM/DL (3.2-5.2); BILIRUBIN,TOTAL 0.8 MG/DL (0.2-1.0); CALCIUM LEVEL 8.7 MG/DL (8.8-10.2); CHOLESTEROL RISK RATIO 3.829 (<5); CREATININE FOR GFR 1.42 MG/DL (0.70-1.30); GLOMERULAR FILTRATION RATE 54.1 (>49); POTASSIUM SERUM 4.5 MEQ/L (3.5-5.1); THYROID STIMULATING HORMONE 1.67 uIU/ML (0.358-3.740); TOTAL PROTEIN 7.8 GM/DL (6.4-8.2)
[2019-10-24 19:51] LABS: MAU/CREAT RATIO 4.9 MCG/MG (0.0-30.0)
[2019-10-24 20:03] LABS: HEMOGLOBIN A1c 6.6 %
== END ==
LOC: M SFHCADAM 14:36
PROVIDERS: ATTEND Physician Assistant Medical
DX: Z79.01 Long term (current) use of anticoagulants (principal); E66.01 Morbid (severe) obesity due to excess calories; K21.9 Gastro-esophageal reflux disease without esophagitis; E11.22 Type 2 diabetes mellitus with diabetic chronic kidney disease; I26.99 Other pulmonary embolism without acute cor pulmonale; M1A.3790 Chronic gout due to renal impairment, unspecified ankle and foot, without tophus (tophi)

== ENCOUNTER → 2019-10-30 | Outpatient (CLI) | payer OTHER ==
[~2019-10-30] MED LIST changes: +E-Z-GAS II EFFERVESCENT PACKET (SODIUM BICARB./CITRIC ACID/SIMETHICONE) As Ordered ONE; +E-Z-HD 98% w/w 340GM SUSP BTL As Ordered ONE; +E-Z-PAQUE 96% w/w SUSP 176GM BTL As Ordered ONE
--- NOTE | 2019-10-31 19:09 | REP ---
Upper GI air contrast The procedure was performed under the direct supervision of Dr. Ghosh. The images were reviewed with Dr. Ghosh The retail loan officer film shows no organomegaly or pathological masses. The intestinal gas pattern is non-specific. Liquid barium and gas producing crystals were given in the erect position as well as liquid barium in the prone oblique position in order to perform a double contrast upper GI examination. The oral and pharyngeal stages of deglutition are unremarkable. There are esophageal transport there are tertiary waves identified. There is a sliding type hiatal hernia. There is mucosal irregularity at the GE junction which may represent esophagitis. There is gastroesophageal reflux demonstrated to the level of the thoracic inlet. The stomach shahid are normally outlined . The rugal folds are smooth and regular. There is no gastritis neoplasm or ulcer disease. The duodenal shahid are normally outlined . The mucosal folds are smooth and regular. There is no duodenitis pancreatitis peptic ulcer disease or neoplasm. The visualized portion of the proximal small bowel appears normal in course and caliber. Impression: 1. Tertiary waves. 2. There is a sliding type hiatal hernia. There is gastroesophageal reflux demonstrated to the level of the thoracic inlet. 3. There is mucosal irregularity at the GE junction which may represent esophagitis. 1.8 minutes of fluoro time was utilized for this procedure. Electronically Signed by MINDY Muniz 10/30/2019 03:50 P Electronically Signed by Seun Ghosh MD 10/31/2019 07:00 P
== END ==
LOC: M RAD 07:43
PROVIDERS: ATTEND Surgery
DX: R10.12 Left upper quadrant pain (principal); K44.9 Diaphragmatic hernia without obstruction or gangrene

== ENCOUNTER → 2019-11-11 | Outpatient (CLI) | payer OTHER ==
[~2019-11-11] MED LIST changes: -E-Z-GAS II EFFERVESCENT PACKET (SODIUM BICARB./CITRIC ACID/SIMETHICONE) As Ordered ONE; -E-Z-HD 98% w/w 340GM SUSP BTL As Ordered ONE; -E-Z-PAQUE 96% w/w SUSP 176GM BTL As Ordered ONE
== END ==
LOC: M LABSMTC 10:48
PROVIDERS: ATTEND Anesthesiology
DX: Z03.818 Encounter for observation for suspected exposure to other biological agents ruled out (principal); Z11.59 Encounter for screening for other viral diseases
CPT/HCPCS: C9803; U0003

== ENCOUNTER 2019-11-14 10:16 | Day surgery (SDC) | payer OTHER ==
[~2019-11-14] VITALS: Ht 185.4 cm; Wt 162.8 kg
[~2019-11-14 10:16] MED LIST changes: +NS 1,000 ML IV ONE
[2019-11-14] MEDS ORDERED: propofoL 200 MG/20 ML VIAL As Ordered ONE ×2 (11:21→11:50)
[2019-11-14] MEDS ORDERED: LIDOCAINE 2% 100MG/5ML SDV (FOR ANES.) As Ordered ONE (11:21)
--- NOTE | 2019-11-14 11:35 | ROOR ---
Patient Name: Salomon Hampton Procedure Date: 11/14/2019 11:19 AM Date of : 1960 Age: 58 Room: [facility] Gender: Male Note Status: Finalized Procedure: Upper GI endoscopy Indications: Suspected esophageal reflux Providers: Matthew Tejeda Jr, MD Referring MD: ASTER Giordano Requesting Provider: Medicines: Propofol per Anesthesia Complications: No immediate complications. Procedure: Pre-Anesthesia Assessment: - Prior to the procedure, a History and Physical was performed, and patient medications and allergies were reviewed. The patient is competent. The risks and benefits of the procedure and the sedation options and risks were discussed with the patient. All questions were answered and informed consent was obtained. Patient identification and proposed procedure were verified by the physician and the nurse in the pre-procedure area and in the procedure room. Mental Status Examination: alert and oriented. Airway Examination: normal oropharyngeal airway and neck mobility. Respiratory Examination: clear to auscultation. CV Examination: normal. ASA Grade Assessment: II - A patient with mild systemic disease. After reviewing the risks and benefits, the patient was deemed in satisfactory condition to undergo the procedure. The anesthesia plan was to use moderate sedation / analgesia (conscious sedation). Immediately prior to administration of medications, the patient was re-assessed for adequacy to receive sedatives. The heart rate, respiratory rate, oxygen saturations, blood pressure, adequacy of pulmonary ventilation, and response to care were monitored throughout the procedure. The physical status of the patient was re-assessed after the procedure. The Endoscope was introduced through the mouth, and advanced to the second part of duodenum. The upper GI endoscopy was accomplished without difficulty. The patient tolerated the procedure well. Findings: The upper third of the esophagus, middle third of the esophagus and lower third of the esophagus were normal. A medium-sized hiatal hernia was present. The cardia, gastric fundus and gastric body were normal. Scattered moderate inflammation characterized by congestion (edema), erythema, friability and granularity was found in the gastric antrum and in the prepyloric region of the stomach. Biopsies were taken with a cold forceps for histology. The duodenal bulb, first portion of the duodenum and second portion of the duodenum were normal. Impression: - Normal upper third of esophagus, middle third of esophagus and lower third of esophagus. - Medium-sized hiatal hernia. - Normal cardia, gastric fundus and gastric body. - Gastritis. Biopsied. - Normal duodenal bulb, first portion of the duodenum and second portion of the duodenum. Recommendation: - Discharge patient to home (ambulatory). - Return to my office in 2 weeks. Matthew Tejeda MD Matthew Tejeda Jr, MD 11/14/2019 11:35:08 AM Electronically signed by Matthew Tejeda Jr, MD Number of Addenda: 0 Note Initiated On: 11/14/2019 11:19 AM Estimated Blood Loss: Estimated blood loss: none.
[2019-11-14 12:10] VITALS: BP 122/66
== END 2019-11-14 12:21 | disposition home or self-care (01) ==
LOC: M OPP 10:16
PROVIDERS: ATTEND Surgery
DX: K44.9 Diaphragmatic hernia without obstruction or gangrene (principal); K29.70 Gastritis, unspecified, without bleeding; Z79.82 Long term (current) use of aspirin; Z79.899 Other long term (current) drug therapy; Z86.718 Personal history of other venous thrombosis and embolism; Z85.46 Personal history of malignant neoplasm of prostate; Z92.21 Personal history of antineoplastic chemotherapy

== ENCOUNTER 2020-01-17 10:12 | Emergency (ER) | payer OTHER ==
[~2020-01-17] VITALS: Ht 185.4 cm; Wt 157.3 kg
[~2020-01-17 10:12] MED LIST changes: -NS 1,000 ML IV ONE
[2020-01-17] MEDS ORDERED: SUCR1TAB56 PO (11:09)
[2020-01-17 11:13] LABS: BASO # 0.1 10^3/uL (0.0-0.2); BASO % 1.4 % (0.0-1.0); EOS # 0.3 10^3/uL (0.0-0.5); EOS % 4.7 % (0.0-3.0); HEMATOCRIT 39.1 % (42.0-52.0); HEMOGLOBIN 12.2 g/dl (13.5-17.5); LYMPH # 2.1 10^3/uL (1.5-5.0); LYMPH % 33.6 % (24.0-44.0); MEAN CORPUSCULAR HEMOGLOBIN 29.5 pg (27.0-33.0); MEAN CORPUSCULAR HGB CONC 31.2 g/dl (32.0-36.5); MEAN CORPUSCULAR VOLUME 94.4 fl (80.0-96.0); MONO # 0.9 10^3/uL (0.0-0.8); MONO % 13.4 % (0.0-5.0); NEUTROPHILS % 46.6 % (36.0-66.0); PLATELET COUNT, AUTOMATED 166 10^3/uL (150-450); RED BLOOD COUNT 4.14 10^6/uL (4.30-6.10); WHITE BLOOD COUNT 6.3 10^3/uL (4.0-10.0)
[2020-01-17 11:33] LABS: CALCIUM LEVEL 8.7 MG/DL (8.8-10.2); CREATININE FOR GFR 1.57 MG/DL (0.70-1.30); GLOMERULAR FILTRATION RATE 48.1 (>49); POTASSIUM SERUM 4.2 MEQ/L (3.5-5.1)
[2020-01-17 14:18] LABS: HEMATOCRIT 37.8 % (42.0-52.0); MEAN CORPUSCULAR HGB CONC 31.7 g/dl (32.0-36.5); MEAN CORPUSCULAR VOLUME 94.5 fl (80.0-96.0); PLATELET COUNT, AUTOMATED 156 10^3/uL (150-450); WHITE BLOOD COUNT 6.7 10^3/uL (4.0-10.0)
[2020-01-17] MEDS ORDERED: ANUS25SU PR (14:33)
[2020-01-17 14:45] VITALS: BP 117/72
== END 2020-01-17 15:03 | disposition home or self-care (01) ==
LOC: M ED 10:12
DX: K64.8 Other hemorrhoids (principal); R10.9 Unspecified abdominal pain; N18.3 Chronic kidney disease, stage 3 (moderate); K76.0 Fatty (change of) liver, not elsewhere classified; E78.5 Hyperlipidemia, unspecified; J45.909 Unspecified asthma, uncomplicated; M19.90 Unspecified osteoarthritis, unspecified site; Z86.718 Personal history of other venous thrombosis and embolism; Z87.891 Personal history of nicotine dependence; Z79.51 Long term (current) use of inhaled steroids; Z79.01 Long term (current) use of anticoagulants; Z79.899 Other long term (current) drug therapy

== ENCOUNTER → 2020-02-27 | Outpatient (REF) | payer OTHER ==
[~2020-02-27] MED LIST changes: +ANUS25SU PR; +SUCR1TAB56 PO
[2020-02-27 13:11] LABS: BASO # 0.1 10^3/uL (0.0-0.2); BASO % 1.3 % (0.0-1.0); EOS # 0.3 10^3/uL (0.0-0.5); EOS % 4.4 % (0.0-3.0); HEMATOCRIT 37.7 % (42.0-52.0); HEMOGLOBIN 11.4 g/dl (13.5-17.5); LYMPH # 2.2 10^3/uL (1.5-5.0); LYMPH % 28.8 % (24.0-44.0); MEAN CORPUSCULAR HEMOGLOBIN 28.7 pg (27.0-33.0); MEAN CORPUSCULAR HGB CONC 30.2 g/dl (32.0-36.5); MONO # 0.9 10^3/uL (0.0-0.8); MONO % 12.3 % (0.0-5.0); NEUTROPHILS # 3.9 10^3/uL (1.5-8.5); NEUTROPHILS % 52.7 % (36.0-66.0); PLATELET COUNT, AUTOMATED 192 10^3/uL (150-450); RED BLOOD COUNT 3.97 10^6/uL (4.30-6.10); WHITE BLOOD COUNT 7.5 10^3/uL (4.0-10.0)
[2020-02-27 14:03] LABS: ALBUMIN 3.6 GM/DL (3.2-5.2); ALT/SGPT 26 U/L (12-78); BILIRUBIN,TOTAL 0.4 MG/DL (0.2-1.0); BLOOD UREA NITROGEN 28 MG/DL (7-18); CALCIUM LEVEL 8.9 MG/DL (8.8-10.2); CARBON DIOXIDE LEVEL 29 MEQ/L (21-32); CHLORIDE LEVEL 103 MEQ/L (98-107); CHOLESTEROL LEVEL 145 MG/DL (<200); CHOLESTEROL RISK RATIO 4.833 (<5); CREATININE FOR GFR 1.37 MG/DL (0.70-1.30); GLOMERULAR FILTRATION RATE 56.2 (>49); GLUCOSE, FASTING 105 MG/DL (70-100); HDL CHOLESTEROL 30 MG/DL (>40); NON-HDL-C 115 MG/DL; POTASSIUM SERUM 4.5 MEQ/L (3.5-5.1); SODIUM LEVEL 139 MEQ/L (136-145); TOTAL 25(OH) VITAMIN D 44.4 NG/ML (30.0-100.0); TOTAL PROTEIN 7.4 GM/DL (6.4-8.2); TRIGLYCERIDES LEVEL 405 MG/DL (<150)
== END ==
LOC: M SFHCADAM 08:28
PROVIDERS: ATTEND Physician Assistant Medical
DX: E78.1 Pure hyperglyceridemia (principal); E55.9 Vitamin D deficiency, unspecified; K75.81 Nonalcoholic steatohepatitis (NASH); Z79.01 Long term (current) use of anticoagulants; Z79.899 Other long term (current) drug therapy

== ENCOUNTER → 2020-04-03 | Outpatient (CLI) | payer OTHER ==
--- NOTE | 2020-04-03 16:11 | REP ---
INDICATION: PAIN IN HANDS AND WRIST. COMPARISON: Comparison left hand views March 13, 2013.. TECHNIQUE: Four views of each wrist are obtained. FINDINGS: Four views of the right wrist demonstrate overall mineralization pattern is normal. There is advanced osteoarthritis at the 1st carpometacarpal articulation. Osteoarthritic narrowing and sclerosis are present at the radio navicular articulation. There is degenerative widening of the navicular lunate interval. There is bony hypertrophy at a 9 united distal ulnar styloid. Some spurring is seen at the lunotriquetral articulation and some mild narrowing is seen at the navicular 0 multangular articulation. No erosive changes seen in the wrist. Four views of the left wrist demonstrate moderate to advanced osteoarthritis at the 1st carpometacarpal articulation. Joint spaces are otherwise preserved. IMPRESSION: Advanced osteoarthritic changes in the right radiocarpal and 1st carpometacarpal articulations. Degenerative widening of the navicular lunate interval on the right. On the left there is advanced osteoarthritis in the 1st carpometacarpal articulation. Mild spurring at the IP joint of the thumb is noted on the left. <Electronically signed by Иван Morton > 04/03/20 [id number]
--- NOTE | 2020-04-03 16:13 | REP ---
INDICATION: PAIN IN HANDS AND WRIST. COMPARISON: Comparison radiographs of the left hand March 13, 2013.. TECHNIQUE: Four views of each hand, total of 8 views. FINDINGS: Four views of the each hand demonstrate overall normal mineralization.. There is moderate to advanced osteoarthritis of the 1st carpometacarpal articulations bilaterally, right more advanced than left. On the right there is bony hypertrophy associated with a nonunited old ulnar styloid fracture. There is advanced radio scaphoid articulation sclerosis and joint space narrowing on the right. Navicular lunate interval is widened on the right. There is a IP joint osteoarthritis at the thumb a on the right and at the DIP joint of the index finger on the right. On the left, there is IP joint osteoarthritis of the thumb and index finger as well. Osteoarthritis of the 1st carpometacarpal articulation is seen on the left as described in the wrist series. No erosive changes are noted on either side.. No opaque foreign body noted. IMPRESSION: Osteoarthritic changes as described above.. <Electronically signed by Иван Morton > 04/03/20 [id number]
== END ==
LOC: M ADAMS 11:46
PROVIDERS: ATTEND Physician Assistant Medical
DX: M79.642 Pain in left hand (principal); M79.641 Pain in right hand

== ENCOUNTER → 2020-04-03 | Outpatient (REF) | payer OTHER ==
[2020-04-03 17:15] LABS: BASO # 0.1 10^3/uL (0.0-0.2); BASO % 1.4 % (0.0-1.0); EOS # 0.4 10^3/uL (0.0-0.5); EOS % 5.8 % (0.0-3.0); HEMATOCRIT 39.7 % (42.0-52.0); HEMOGLOBIN 11.8 g/dl (13.5-17.5); LYMPH # 2.2 10^3/uL (1.5-5.0); LYMPH % 31.5 % (24.0-44.0); MEAN CORPUSCULAR HEMOGLOBIN 28.1 pg (27.0-33.0); MEAN CORPUSCULAR HGB CONC 29.7 g/dl (32.0-36.5); MEAN CORPUSCULAR VOLUME 94.5 fl (80.0-96.0); MONO # 0.7 10^3/uL (0.0-0.8); MONO % 10.2 % (0.0-5.0); NEUTROPHILS # 3.5 10^3/uL (1.5-8.5); NEUTROPHILS % 50.2 % (36.0-66.0); PLATELET COUNT, AUTOMATED 173 10^3/uL (150-450)
[2020-04-03 17:37] LABS: C REACTIVE PROTEIN QUANTITATIV < 0.30 MG/DL (0.00-0.30); RHEUMATOID FACTOR QUANT < 10.0 IU/ML (<15.0)
[2020-04-03 18:12] LABS: ERYTHROCYTE SEDIMENTATION RATE 25 mm/hr (0-20)
== END ==
LOC: M SFHCADAM 11:43
PROVIDERS: ATTEND Physician Assistant Medical
DX: I82.531 Chronic embolism and thrombosis of right popliteal vein (principal); M79.642 Pain in left hand; M79.641 Pain in right hand

== ENCOUNTER → 2020-04-06 | Outpatient (REF) | payer OTHER ==
[2020-04-06 17:00] LABS: INR 2.28; PROTHROMBIN TIME 25.6 SECONDS (12.5-14.3)
== END ==
LOC: M SFHCADAM 13:43
PROVIDERS: ATTEND Physician Assistant Medical
DX: I26.99 Other pulmonary embolism without acute cor pulmonale (principal); Z86.718 Personal history of other venous thrombosis and embolism

== ENCOUNTER 2020-07-23 13:48 | Outpatient (RCR) | payer OTHER | END 2020-07-26 | LOC: M PT 13:48 | PROVIDERS: ATTEND Physician Assistant Medical | DX: I89.0 Lymphedema, not elsewhere classified (principal) ==

== ENCOUNTER 2020-08-20 09:15 | Outpatient (RCR) | payer OTHER ==
[2020-08-27] MEDS ORDERED: WARF-23 PO ×2 (01:44)
[2020-08-27] MEDS ORDERED: MELO15TA28 PO (01:44)
[2020-08-27] MEDS ORDERED: SIME180C PO (01:44)
[2020-08-27] MEDS ORDERED: ZYLO300T6 PO (01:44)
== END 2020-08-26 ==
LOC: M PT 09:15
PROVIDERS: ATTEND Physician Assistant Medical
DX: I89.0 Lymphedema, not elsewhere classified (principal)

== ENCOUNTER 2020-08-26 22:05 | Observation (INO) | payer OTHER ==
[~2020-08-26] VITALS: Ht 185.4 cm; Wt 171.8 kg
[2020-08-26] MEDS ORDERED: NS 1,000 ML IV ONE (22:45)
[2020-08-26] MEDS ORDERED: PANTOPRAZOLE 40MG VIAL (C9113 PER 1) IV ONE (22:45)
[2020-08-26 22:58] LABS: BASO # 0.1 10^3/uL (0.0-0.2); BASO % 1.2 % (0.0-1.0); EOS # 0.4 10^3/uL (0.0-0.5); EOS % 4.1 % (0.0-3.0); HEMOGLOBIN 11.6 g/dl (13.5-17.5); LYMPH # 2.6 10^3/uL (1.5-5.0); LYMPH % 29.1 % (24.0-44.0); MEAN CORPUSCULAR HEMOGLOBIN 28.5 pg (27.0-33.0); MEAN CORPUSCULAR HGB CONC 30.5 g/dl (32.0-36.5); MEAN CORPUSCULAR VOLUME 93.4 fl (80.0-96.0); MONO # 0.9 10^3/uL (0.0-0.8); MONO % 9.5 % (2.0-8.0); NEUTROPHILS % 55.3 % (36.0-66.0); PLATELET COUNT, AUTOMATED 198 10^3/uL (150-450); RED BLOOD COUNT 4.07 10^6/uL (4.30-6.10)
[2020-08-26 23:09] LABS: INR 2.47; PROTHROMBIN TIME 27.3 SECONDS (12.5-14.3)
[2020-08-26 23:10] LABS: PARTIAL THROMBOPLASTIN TIME 51.2 SECONDS (24.2-38.5)
[2020-08-26 23:25] LABS: ALBUMIN 3.5 GM/DL (3.2-5.2); ALT/SGPT 33 U/L (12-78); BILIRUBIN,DIRECT 0.1 MG/DL (0.0-0.2); BILIRUBIN,TOTAL 0.4 MG/DL (0.2-1.0); BLOOD UREA NITROGEN 25 MG/DL (7-18); CALCIUM LEVEL 8.2 MG/DL (8.8-10.2); CARBON DIOXIDE LEVEL 29 MEQ/L (21-32); CHLORIDE LEVEL 104 MEQ/L (98-107); CK-MB VALUE MASS 3.2 NG/ML (<3.6); CPK CREATINE PHOSPHOKINASE 300 U/L (39-308); CREATININE FOR GFR 1.28 MG/DL (0.70-1.30); GLOMERULAR FILTRATION RATE > 60.0 (>49); GLUCOSE, FASTING 135 MG/DL (70-100); LIPASE 151 U/L (73-393); MB/CK RELATIVE INDEX 1.07 (< OR =4); POTASSIUM SERUM 4.4 MEQ/L (3.5-5.1); SODIUM LEVEL 138 MEQ/L (136-145); TOTAL PROTEIN 7.6 GM/DL (6.4-8.2); TROPONIN I < 0.02 NG/ML (< 0.10)
[2020-08-26] MEDS ORDERED: ISOVUE-370 76% 100ML VIAL As Ordered ONE (23:37)
--- NOTE | 2020-08-27 00:37 | REPVR ---
PROCEDURE INFORMATION: Exam: CT Abdomen and Pelvis with Contrast Exam date and time: (11:43pm) Age: 59 years old Clinical indication: Generalized abdominal pain. GI bleeding. TECHNIQUE: Imaging protocol: Computed tomography of the abdomen and pelvis with contrast. Radiation optimization: All CT scans at this facility use at least one of these dose optimization techniques: automated exposure control; mA and/or kV adjustment per patient size (includes targeted exams where dose is matched to clinical indication); or iterative reconstruction. Contrast material: Iso Contrast volume: 100 ml Contrast route: IV COMPARISON: CT ABDOMEN PELVIS of 10/12/19 FINDINGS: Lower lung perkins: Mild bibasilar hypoventilatory changes. Liver: Normal. No solid mass. Gallbladder and bile ducts: Normal. No calcified stones. No ductal dilatation. Pancreas: Normal. No ductal dilatation. Spleen: Normal. No splenomegaly. Adrenal glands: Normal. No mass. Kidneys and ureters: Normal. No hydronephrosis. Stomach and bowel: Unremarkable. No bowel obstruction. No mucosal thickening. Appendix: No evidence of appendicitis. Intraperitoneal space: Unremarkable. No free air. No significant fluid collection. Vasculature: Unremarkable. No abdominal aortic aneurysm. Lymph nodes: Unremarkable. No enlarged lymph nodes. Urinary bladder: Unremarkable as visualized. Reproductive: Unremarkable as visualized. Bones/joints: No acute fracture. Degenerative disc changes at the L2-L3 level. Soft tissues: Unremarkable. IMPRESSION: No acute findings. Electronically signed by: Karon Moody On 08/27/2020 00:37:38 AM
[2020-08-27] MEDS ORDERED: ZYLO300T6 PO (01:44)
[2020-08-27] MEDS ORDERED: MELO15TA28 PO (01:44)
[2020-08-27] MEDS ORDERED: SIME180C PO (01:44)
[2020-08-27] MEDS ORDERED: WARF-23 PO ×2 (01:44)
[2020-08-27] MEDS ORDERED: ALBUTEROL 90 MCG/ACT 8GM HFA INHALER INH PRN (02:10)
[2020-08-27] MEDS ORDERED: ONDANSETRON 4MG/2ML VIAL IV PRN (02:10)
--- NOTE | 2020-08-27 02:50 | HPEPDOC ---
[facility] Medical History & Physical Date of Admission Aug 27, 2020 Date of Service: Aug 27, 2020 Attending Physician: CHERYL CRUZ MD History and Physical CHIEF COMPLAINT: [59 year old male c/o BRBPR x2 days] HISTORY OF PRESENT ILLNESS: [This is a 59 y/o male with a pmh of DVT's, PE with current warfarin therapy, COPD, gout, MICHAEL, CKD, hemorrhoids, hiatal hernia, and testicular cancer s/p orchiectomy. Patient reports to the ER today 08/27/20 with chief complaint of bright red blood per rectum that has not gotten better over the past two days and is now beginning to experience some dizziness. Patient states that he is having frequent bowel movements and at his worst was going to the bathroom "every 30 minutes." Patient states that he is also experiencing nausea and had one episode of emesis yesterday that was not dark or bloody. Patient is also having crampy lower abdominal pain that is predominantly in his LLQ and does not radiate but is "sore everywhere." Patient denies fever, chills, sob, chest pain, syncope. ] PAST MEDICAL HISTORY: 1. See HPI PAST SURGICAL HISTORY: 1. [Orchiectomy 2004]. 2. [Left rotator cuff repair]. 3. [Right ankle fx orif]. ALLERGIES: Please see below. REVIEW OF SYSTEMS: CONSTITUTIONAL: [See HPI]. HEENT: [See HPI]. CARDIOVASCULAR: [See HPI]. RESPIRATORY: [See HPI]. GASTROINTESTINAL: [See HPI]. GENITOURINARY: [Denies dysuria]. SKIN: [Denies rash]. MUSCULOSKELETAL: [Denies acute joint pain]. NEUROLOGICAL: [See HPI]. ENDOCRINE: [Denies hx of DM. HEMATOLOGIC/LYMPHATIC: [See HPI]. HOME MEDICATIONS: Please see below. PHYSICAL EXAMINATION: VITAL SIGNS: See below GENERAL APPEARANCE: [This is a 59 year old male who is resting in bed. He appears uncomfortable but is in no acute distress.]. HEENT: [No mass or lesion. EOMI. No scleral icterus of conjunctival erythema. Nares patent. Oral mucosa moist without erythema.]. CARDIOVASCULAR: [Regular rate, rhythm. No murmurs, rubs or gallops]. LUNGS: [Scattered inspiratory wheezing]. ABDOMEN: [Obese, firm. Tender to palpation in all quadrants but more so in LLQ. Rectal exam reveals no bulging hemorrhoids, obvious fissure or visible blood.]. MUSCULOSKELETAL: [No joint deformity]. EXTREMITIES: [Lymphedematous legs b/l. Warm, dry. ]. NEUROLOGICAL: [A+Ox3. Speech clear. No focal deficits]. PSYCHIATRIC: [mood and affect appear to be appropriate]. LABORATORY DATA: See below. IMAGING: [CT Abd/pelvis: FINDINGS: Lower lung perkins: Mild bibasilar hypoventilatory changes. Liver: Normal. No solid mass. Gallbladder and bile ducts: Normal. No calcified stones. No ductal dilatation. Pancreas: Normal. No ductal dilatation. Spleen: Normal. No splenomegaly. Adrenal glands: Normal. No mass. Kidneys and ureters: Normal. No hydronephrosis. Stomach and bowel: Unremarkable. No bowel obstruction. No mucosal thickening. Appendix: No evidence of appendicitis. Intraperitoneal space: Unremarkable. No free air. No significant fluid collection. Vasculature: Unremarkable. No abdominal aortic aneurysm. Lymph nodes: Unremarkable. No enlarged lymph nodes. Urinary bladder: Unremarkable as visualized. Reproductive: Unremarkable as visualized. Bones/joints: No acute fracture. Degenerative disc changes at the L2-L3 level. Soft tissues: Unremarkable. IMPRESSION: No acute findings. ] MICROBIOLOGY: Please see below. ASSESSMENT: [This is a 59 year old male with a chief complaint today of rectal bleeding. He is also experiencing nausea, abdominal pain and occasional vomiting. Upon chart review, patient's last colonoscopy in 2018 was notable for removal of two adenomatous polyps. Patient also reports current hemorrhoids. Patient reports that he has had fair oral intake and his vital signs appear stable at this time but has received a 1L bolus in the ED. Whatever level of bleeding the patient is having is being exacerbated by his warfarin. Current INR is 2.4, current Hb is 11.6.]. . PLAN: 1. [BRBPR - CT scan showed no obvious structural disease that would explain this patient's rectal bleeding. Patient does have hx of colonic polyps and bleeding hemorrh oids that have been found on past colonoscopies, which could be source of bleeding at this time. - With patient's current vital signs and Hb level, patient is stable receiving IVF. - We will hold patient's warfarin due to active bleed. This may decrease his bleeding some. - We will trend H/H in this patient, will transfuse if Hb drops below 8. No transfusions or vit k supplementation indicated at this time. - Day team can consider GI consult for colonoscopy to determine source of bleeding. - IV protonix 40mg bid - po carafate 1g qid - IV zofran 8mg prn for nausea/vomiting - Clear liquid diet for now - Admit to med surg 2. COPD - Continue at home inhalers symbicort and albuterol - Continuous pulse ox monitoring 3. Gout - continue allopurinol 4. Depression - Continue celexa 5. GERD - patient will be receiving iv ppi as previously stated - continue simethicone 6. Dyslipidemia - continue simvastatin 7. MICHAEL - cpap 8. DVT prophylaxis - TEDs and sequentials only due to bleeding]. Vital Signs Vital Signs Date Time Temp Pulse Resp B/P (MAP) Pulse Ox O2 Delivery O2 Flow Rate FiO2 08/27/20 02:09 87 93 08/27/20 02:09 97.7 19 Room Air 08/27/20 02:01 104/60 (75) Laboratory Data Labs 24H Laboratory Tests 2 08/26/20 22:49: Immature Granulocyte % (Auto) 0.8, Neutrophils (%) (Auto) 55.3, Lymphocytes (%) (Auto) 29.1, Monocytes (%) (Auto) 9.5H, Eosinophils (%) (Auto) 4.1H, Basophils (%) (Auto) 1.2H, Neutrophils # (Auto) 5.0, Lymphocytes # (Auto) 2.6, Monocytes # (Auto) 0.9H, Eosinophils # (Auto) 0.4, Basophils # (Auto) 0.1, Nucleated Red Blood Cells % (auto) 0.0, Prothrombin Time 27.3H, Prothromb Time International Ratio 2.47, Activated Partial Thromboplast Time 51.2H, Anion Gap 5L, Glomerular Filtration Rate > 60.0, Lactic Acid Level 1.1, Calcium Level 8.2L, Total Bilirubin 0.4, Direct Bilirubin 0.1, Aspartate Amino Transf (AST/SGOT) 45H, Alanine Aminotransferase (ALT/SGPT) 33, Alkaline Phosphatase 207H, Total Creatine Kinase 300, Creatine Kinase MB 3.2, Creatine Kinase MB Relative Index 1.07, Troponin I < 0.02, Total Protein 7.6, Albumin 3.5, Albumin/Globulin Ratio 0.9, Lipase 151 CBC/BMP Laboratory Tests 08/26/20 22:49 Microbiology Microbiology 08/27/20 Respiratory Virus Panel (PCR) (RONNIE) - Final, Complete Home Medications Scheduled Allopurinol (Zyloprim) 300 Mg Tablet, 300 MG PO QHS Aspirin (Aspirin) 81 Mg Tab.chew, 81 MG PO QHS Budesonide/Formoterol (Symbicort 160-4.5 Mcg Inhaler) 60 Puff/Inhaler Aers, 2 PUFF INH BID Citalopram Hydrobromide (Citalopram HBr) 10 Mg Tab, 10 MG PO QHS Ergocalciferol (Vitamin D2) (Vitamin D2) 50,000 Units Cap, 50,000 UNITS PO QWEEK MONDAY NIGHT Meloxicam (Meloxicam) 15 Mg Tablet, 15 MG PO QPM AT DINNERTIME Multivitamins (Thera M Plus Tablet) 1 Tab Tab, 1 TAB PO DAILY Omeprazole (Omeprazole) 40 Mg Cap, 40 MG PO BID Simvastatin (Simvastatin) 40 Mg Tablet, 40 MG PO QHS Warfarin Sodium (Warfarin Sodium) 5 Mg Tablet, 15 MG PO 2XW MONDAY AND MONDAY AT QHS Warfarin Sodium (Warfarin Sodium) 5 Mg Tablet, 10 MG PO 5XW MONDAY, MONDAY, MONDAY, MONDAY AND MONDAY AT QHS Scheduled PRN Albuterol Sulfate (Proair Hfa) 108 Mcg/Act Aer, 2 PUFF INH QID PRN for SHORTNESS OF BREATH Simethicone (Simethicone) 180 Mg Capsule, 180 MG PO TID PRN for GAS PAIN Allergies Coded Allergies: No Known Allergies (Unverified , 09/28/17) A-FIB/CHADSVASC A-FIB History Current/History of A-Fib/PAF?: No TAHIRA OLIVERA Aug 27, 2020 02:50
[2020-08-27 04:03] VITALS: BP 137/74
[2020-08-27] MEDS: SIMETHICONE 80MG CHEW TAB PO SCH ×5 (04:19→20:38)
[2020-08-27 06:00] VITALS: BP 135/75
--- NOTE | 2020-08-27 06:40 | REP ---
INDICATION: lower extremity edema COMPARISON: None. TECHNIQUE: Ghosh scale and color Doppler evaluation using linear high frequency transducer. FINDINGS: Ultrasound examination of the right and left lower extremity deep venous structures from the common femoral vein to the popliteal vein demonstrates normal compressibility flow and wave patterns in response to respiration and augmentation. There is no evidence for deep venous thrombosis. IMPRESSION: No evidence for deep venous thrombosis. <Electronically signed by Jagdeep Aguirre > 08/27/20 0636
[2020-08-27] MEDS: SUCRALFATE 1 GM TAB PO SCH ×4 (08:17→20:39)
[2020-08-27] MEDS: MULTIVITAMINS/MINERALS THERAP 1 TAB PO SCH (08:17)
[2020-08-27] MEDS: PANTOPRAZOLE 40MG VIAL (C9113 PER 1) IV SCH ×2 (08:17→20:39)
--- NOTE | 2020-08-27 09:07 | IPNPDOC ---
Text Note Date of Service The patient was seen on 08/27/20. NOTE Subjective: -No abdominal pain, nausea or emesis. 1 bloody BM overnight, formed. Objective: VITAL SIGNS: See below GENERAL APPEARANCE: Obese, NAD HEENT: NCAT, EOMI, PERRLA, anicteric CARDIOVASCULAR: RRR, no m/r/g LUNGS: No wheezing this AM, CTAB ABDOMEN: Morbidly obese, soft, tender LLQ, normoactive bowel sounds EXTREMITIES: WWP, no edema NEUROLOGICAL: A+Ox3. Speech clear. No focal deficits PSYCHIATRIC: mood and affect appear to be appropriate LABORATORY DATA: Reviewed WBC 9 Hgb 11.6 platelets 198 Na 138 K 4.4 Cr 1.28 IMAGING:CT Abd/pelvis: FINDINGS: Lower lung perkins: Mild bibasilar hypoventilatory changes. Liver: Normal. No solid mass. Gallbladder and bile ducts: Normal. No calcified stones. No ductal dilatation. Pancreas: Normal. No ductal dilatation. Spleen: Normal. No splenomegaly. Adrenal glands: Normal. No mass. Kidneys and ureters: Normal. No hydronephrosis. Stomach and bowel: Unremarkable. No bowel obstruction. No mucosal thickening. Appendix: No evidence of appendicitis. Intraperitoneal space: Unremarkable. No free air. No significant fluid collection. Vasculature: Unremarkable. No abdominal aortic aneurysm. Lymph nodes: Unremarkable. No enlarged lymph nodes. Urinary bladder: Unremarkable as visualized. Reproductive: Unremarkable as visualized. Bones/joints: No acute fracture. Degenerative disc changes at the L2-L3 level. Soft tissues: Unremarkable. IMPRESSION: No acute findings. ] MICROBIOLOGY: Please see below. ASSESSMENT: 59 year old M with a history of thromboses on warfarin, and last colonoscopy in 2018 was notable for removal of two adenomatous polyps who presented with abdominal pain with recent N/V and now BRBPR with Hgb at recent baseline. PLAN: LGIB - CT scan showed no obvious structural disease that would explain this patient's rectal bleeding. Patient does have hx of colonic polyps and bleeding hemorrhoids that have been found on past colonoscopies, which could be source of bleeding at this time. -Recent N/V/D was most likely 2/2 transient gastroenteritis, no N/V since arrival to the hospital -check H/H at 2PM -continue holding warfarin due to active bleed. - We will trend H/H in this patient, will transfuse if Hb drops below 8. No transfusions or vit k supplementation indicated at this time. - Will hold on GI consult for colonoscopy given H/H at recent baseline, likely hemorrhoidal, will monitor for now and if persistent with actual H/H drop will consult. - may continue IV protonix 40mg bid - po carafate 1g qid - IV zofran 8mg prn for nausea/vomiting - Clear liquid diet for now 2. COPD - Continue at home inhalers symbicort and albuterol - Continuous pulse ox monitoring 3. Gout - continue allopurinol 4. Depression - Continue celexa 5. GERD - patient will be receiving iv ppi as previously stated - continue simethicone 6. Dyslipidemia - continue simvastatin 7. MICHAEL - cpap 8. History of thromboses: -holding warfarin for now i/s/o active bleeding 9. DVT prophylaxis - TEDs and sequentials only due to bleeding VS,Fishbone, I+O VS, Fishbone, I+O Laboratory Tests 08/26/20 22:49 Vital Signs Date Time Temp Pulse Resp B/P (MAP) Pulse Ox O2 Delivery O2 Flow Rate FiO2 08/27/20 06:00 98.2 90 18 135/75 (95) 92 Nasal Cannula 2.0 I&O- Last 24 Hours up to 6 AM 08/27/20 06:00 Intake Total 1150 ml Output Total 0 ml Balance 1150 ml CARLENE HUNTLEY MD Aug 27, 2020 09:07
[2020-08-27] MEDS: SYMBICORT 160/4.5MCG INHALER 6GM INH SCH ×2 (11:14→19:26)
[2020-08-27 11:27] VITALS: O2SAT 94
[2020-08-27 13:30] VITALS: BP_SYST 138; BP_SYST 155; BP_SYST 161; BP_DIAS 75; BP_DIAS 85; BP_DIAS 86
[2020-08-27 14:00] VITALS: BP 138/75
[2020-08-27 14:09] LABS: HEMATOCRIT 36.6 % (42.0-52.0); HEMOGLOBIN 11.1 g/dl (13.5-17.5); MEAN CORPUSCULAR HGB CONC 30.3 g/dl (32.0-36.5); MEAN CORPUSCULAR VOLUME 92.4 fl (80.0-96.0); PLATELET COUNT, AUTOMATED 164 10^3/uL (150-450); RED BLOOD COUNT 3.96 10^6/uL (4.30-6.10); WHITE BLOOD COUNT 7.8 10^3/uL (4.0-10.0)
[2020-08-27] MEDS: ACETAMINOPHEN TAB 650MG DOSE (2X325MG) PO PRN ×2 (17:37→22:12)
[2020-08-27] MEDS ORDERED: MELOXICAM (MOBIC) 7.5 MG TAB PO SCH (21:00)
[2020-08-27] MEDS ORDERED: CitaloPRAM (CeleXA) 10 MG TABLET PO SCH (21:00)
[2020-08-27] MEDS ORDERED: SIMVASTATIN 40 MG TAB PO SCH (21:00)
[2020-08-27] MEDS ORDERED: allopurinoL 300 MG TAB PO SCH (21:00)
[2020-08-27 22:00] VITALS: BP 132/90
[2020-08-28 06:00] VITALS: BP 121/68
[2020-08-28 06:18] LABS: HEMATOCRIT 36.2 % (42.0-52.0); HEMOGLOBIN 10.8 g/dl (13.5-17.5); MEAN CORPUSCULAR HEMOGLOBIN 27.8 pg (27.0-33.0); MEAN CORPUSCULAR HGB CONC 29.8 g/dl (32.0-36.5); MEAN CORPUSCULAR VOLUME 93.1 fl (80.0-96.0); PLATELET COUNT, AUTOMATED 160 10^3/uL (150-450); RED BLOOD COUNT 3.89 10^6/uL (4.30-6.10); WHITE BLOOD COUNT 7.3 10^3/uL (4.0-10.0)
--- NOTE | 2020-08-28 06:25 | ECGEPIP ---
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
[2020-08-28 06:29] LABS: INR 1.58; PROTHROMBIN TIME 19.3 SECONDS (12.5-14.3)
[2020-08-28 06:56] LABS: BLOOD UREA NITROGEN 19 MG/DL (7-18); CALCIUM LEVEL 8.6 MG/DL (8.8-10.2); CARBON DIOXIDE LEVEL 31 MEQ/L (21-32); CHLORIDE LEVEL 104 MEQ/L (98-107); CREATININE FOR GFR 1.27 MG/DL (0.70-1.30); FERRITIN 15 NG/ML (26-388); GLOMERULAR FILTRATION RATE > 60.0 (>49); GLUCOSE, FASTING 93 MG/DL (70-100); IRON (FE) 106 UG/DL (65-175); POTASSIUM SERUM 4.1 MEQ/L (3.5-5.1); SODIUM LEVEL 139 MEQ/L (136-145)
[2020-08-28] MEDS: SYMBICORT 160/4.5MCG INHALER 6GM INH SCH (07:25)
[2020-08-28] MEDS: MULTIVITAMINS/MINERALS THERAP 1 TAB PO SCH (09:22)
[2020-08-28] MEDS: SUCRALFATE 1 GM TAB PO SCH (09:23)
[2020-08-28] MEDS: PANTOPRAZOLE 40MG VIAL (C9113 PER 1) IV SCH (09:23)
[2020-08-28] MEDS: ACETAMINOPHEN TAB 650MG DOSE (2X325MG) PO PRN (09:23)
[2020-08-28] MEDS: SIMETHICONE 80MG CHEW TAB PO SCH (09:23)
[2020-08-28 09:58] VITALS: O2SAT 90
--- NOTE | 2020-08-28 12:02 | DS.PDOC ---
Discharge Summary General Date of Admission Aug 27, 2020 at 02:06 Date of Discharge 08/28/2020 Attending Physician: CARLENE HUNTLEY MD Discharge Summary PROCEDURES PERFORMED DURING STAY: None ADMITTING DIAGNOSES: 1. LGIB 2. TEENA DISCHARGE DIAGNOSES: LGIB History of DVT and PE on warfarin therapy COPD gout MICHAEL CKD History of hemorrhoids hiatal hernia GERD Chronic anemia COMPLICATIONS/CHIEF COMPLAINT: Asthma,Ckd,Gerd,Gi Bleed,. HISTORY OF PRESENT ILLNESS: 59 y/o M with a pmh of DVT's, PE on warfarin therapy, COPD, gout, MICHAEL, CKD, hemorrhoids, hiatal hernia, and testicular cancer s/p orchiectomy who presented to the ED on 08/27/20 with chief complaint of bright red blood per rectum that had not gotten better over two days and associated dizziness. He reported recent history of N/V/D but the N/V resolved but BMs turned bloody 2 days prior. He reported associated LLQ but denied fever, chills, sob, chest pain, syncope. HOSPITAL COURSE: On admission he was given IVF with resolution of the dizziness. His hemoglobin was at his recent baseline. He was monitored off warfarin and his bleeding resolved with brown stool. I am now discharging him where he will now resume his warfarin and am referring him to see his stablehand, Dr. Flores whom he had his last colonoscopy with a few years ago to investigate the slow LGIB. DISCHARGE MEDICATIONS: Please see below. ALLERGIES: Please see below. PHYSICAL EXAMINATION ON DISCHARGE: VITAL SIGNS: Please see below. VITAL SIGNS: See below GENERAL APPEARANCE: Obese, NAD HEENT: NCAT, EOMI, PERRLA, anicteric CARDIOVASCULAR: RRR, no m/r/g LUNGS: No wheezing this AM, CTAB ABDOMEN: Morbidly obese, soft, nontender, normoactive bowel sounds EXTREMITIES: WWP, no edema NEUROLOGICAL: A+Ox3. Speech clear. No focal deficits PSYCHIATRIC: mood and affect appear to be appropriate LABORATORY DATA: Please see below. IMAGING: CT A/P: Lower lung perkins: Mild bibasilar hypoventilatory changes. Liver: Normal. No solid mass. Gallbladder and bile ducts: Normal. No calcified stones. No ductal dilatation. Pancreas: Normal. No ductal dilatation. Spleen: Normal. No splenomegaly. Adrenal glands: Normal. No mass. Kidneys and ureters: Normal. No hydronephrosis. Stomach and bowel: Unremarkable. No bowel obstruction. No mucosal thickening. Appendix: No evidence of appendicitis. Intraperitoneal space: Unremarkable. No free air. No significant fluid collection. Vasculature: Unremarkable. No abdominal aortic aneurysm. Lymph nodes: Unremarkable. No enlarged lymph nodes. Urinary bladder: Unremarkable as visualized. Reproductive: Unremarkable as visualized. Bones/joints: No acute fracture. Degenerative disc changes at the L2-L3 level. Soft tissues: Unremarkable. IMPRESSION: No acute findings. LE doppler venous US: Ultrasound examination of the right and left lower extremity deep venous s tructures from the common femoral vein to the popliteal vein demonstrates normal compressibility flow and wave patterns in response to respiration and augmentation. There is no evidence for deep venous thrombosis. IMPRESSION: No evidence for deep venous thrombosis. PROGNOSIS: Good ACTIVITY: As tolerated DIET: regular DISCHARGE PLAN: Home with GI referral DISPOSITION: Home DISCHARGE INSTRUCTIONS: Home with GI referral ITEMS TO FOLLOWUP ON ON OUTPATIENT: Slow LGIB DISCHARGE CONDITION: Stable TIME SPENT ON DISCHARGE: 35 minutes. Vital Signs/I&Os Vital Signs Date Time Temp Pulse Resp B/P (MAP) Pulse Ox O2 Delivery O2 Flow Rate FiO2 08/28/20 09:58 90 Room Air 08/28/20 06:00 97.8 73 17 121/68 (85) 2.0 I&O- Last 24 Hours up to 6 AM 08/28/20 06:00 Intake Total 1140 ml Output Total 3500 ml Balance -2360 ml Laboratory Data Labs 24H Laboratory Tests 2 08/27/20 13:55: Nucleated Red Blood Cells % (auto) 0.0 08/27/20 14:08: Methicillin-Resist S.aureus DNA PCR NOT DETECTED 08/28/20 05:41: Nucleated Red Blood Cells % (auto) 0.0, Prothrombin Time 19.3H, Prothromb Time International Ratio 1.58, Anion Gap 4L, Glomerular Filtration Rate > 60.0, Calcium Level 8.6L, Iron Level 106, Ferritin 15L CBC/BMP Laboratory Tests 08/27/20 13:55 08/28/20 05:41 Microbiology Microbiology 08/27/20 Respiratory Virus Panel (PCR) (RONNIE) - Final, Complete Discharge Medications Scheduled Allopurinol (Zyloprim) 300 Mg Tablet, 300 MG PO QHS, (Reported) Aspirin (Aspirin) 81 Mg Tab.chew, 81 MG PO QHS, (Reported) Budesonide/Formoterol (Symbicort 160-4.5 Mcg Inhaler) 60 Puff/Inhaler Aers, 2 PUFF INH BID, (Reported) Citalopram Hydrobromide (Citalopram HBr) 10 Mg Tab, 10 MG PO QHS, (Reported) Ergocalciferol (Vitamin D2) (Vitamin D2) 50,000 Units Cap, 50,000 UNITS PO QWEEK, (Reported) MONDAY NIGHT Meloxicam (Meloxicam) 15 Mg Tablet, 15 MG PO QPM, (Reported) AT DINNERTIME Multivitamins (Thera M Plus Tablet) 1 Tab Tab, 1 TAB PO DAILY, (Reported) Omeprazole (Omeprazole) 40 Mg Cap, 40 MG PO BID, (Reported) Simvastatin (Simvastatin) 40 Mg Tablet, 40 MG PO QHS, (Reported) Warfarin Sodium (Warfarin Sodium) 5 Mg Tablet, 15 MG PO 2XW, (Reported) MONDAY AND MONDAY AT QHS Warfarin Sodium (Warfarin Sodium) 5 Mg Tablet, 10 MG PO 5XW, (Reported) MONDAY, MONDAY, MONDAY, MONDAY AND MONDAY AT QHS Scheduled PRN Albuterol Sulfate (Proair Hfa) 108 Mcg/Act Aer, 2 PUFF INH QID PRN for SHORTNESS OF BREATH, (Reported) Simethicone (Simethicone) 180 Mg Capsule, 180 MG PO TID PRN for GAS PAIN, (Reported) Allergies Coded Allergies: No Known Allergies (Unverified , 09/28/17) CARLENE HUNTLEY MD Aug 28, 2020 12:02
[2020-08-28 14:00] VITALS: BP 136/80
== END 2020-08-28 14:45 | disposition home or self-care (01) ==
LOC: M ED 22:05 → M ED INP 08-27 02:06 → ENRESERV 08-27 03:05 → M MSPAV 08-27 04:03
PROVIDERS: ADMIT Family Medicine; ATTEND Internal Medicine
DX: K92.2 Gastrointestinal hemorrhage, unspecified (principal); N17.9 Acute kidney failure, unspecified; Z86.711 Personal history of pulmonary embolism; Z86.718 Personal history of other venous thrombosis and embolism; J44.9 Chronic obstructive pulmonary disease, unspecified; N18.9 Chronic kidney disease, unspecified; M10.9 Gout, unspecified; K44.9 Diaphragmatic hernia without obstruction or gangrene; K21.9 Gastro-esophageal reflux disease without esophagitis; D64.9 Anemia, unspecified; Z85.47 Personal history of malignant neoplasm of testis; Z79.01 Long term (current) use of anticoagulants; R42 Dizziness and giddiness; Z79.82 Long term (current) use of aspirin; Z79.899 Other long term (current) drug therapy
CPT/HCPCS: 36415; 74177; 80048; 80076; 82550; 82553; 82728; 83540; 83605; 83690; 85025; 85027; 85610; 85730; 86850; 86900; 86901; 87641; 87798; 93005; 93041; 93970; 94640; 96361; 96374; 96375; 96376; 99285; C9113; J2405; Q9967

== ENCOUNTER → 2020-09-03 | Outpatient (REF) | payer OTHER ==
[~2020-09-03] MED LIST changes: +MELO15TA28 PO; +ZYLO300T6 PO
[2020-09-03 16:24] LABS: BASO # 0.1 10^3/uL (0.0-0.2); BASO % 1.5 % (0.0-1.0); EOS # 0.3 10^3/uL (0.0-0.5); EOS % 4.9 % (0.0-3.0); HEMATOCRIT 36.6 % (42.0-52.0); HEMOGLOBIN 11.3 g/dl (13.5-17.5); LYMPH % 29.8 % (24.0-44.0); MEAN CORPUSCULAR HGB CONC 30.9 g/dl (32.0-36.5); MEAN CORPUSCULAR VOLUME 94.1 fl (80.0-96.0); MONO # 0.8 10^3/uL (0.0-0.8); MONO % 12.2 % (2.0-8.0); NEUTROPHILS # 3.3 10^3/uL (1.5-8.5); PLATELET COUNT, AUTOMATED 205 10^3/uL (150-450); RED BLOOD COUNT 3.89 10^6/uL (4.30-6.10); WHITE BLOOD COUNT 6.6 10^3/uL (4.0-10.0)
[2020-09-03 16:35] LABS: INR 1.96; PROTHROMBIN TIME 22.8 SECONDS (12.5-14.3)
[2020-09-03 16:39] LABS: ALBUMIN 3.5 GM/DL (3.2-5.2); ALT/SGPT 31 U/L (12-78); BILIRUBIN,TOTAL 0.5 MG/DL (0.2-1.0); BLOOD UREA NITROGEN 23 MG/DL (7-18); CALCIUM LEVEL 9.1 MG/DL (8.8-10.2); CARBON DIOXIDE LEVEL 28 MEQ/L (21-32); CHLORIDE LEVEL 105 MEQ/L (98-107); CHOLESTEROL LEVEL 188 MG/DL (<200); CHOLESTEROL RISK RATIO 6.714 (<5); CREATININE FOR GFR 1.35 MG/DL (0.70-1.30); GLOMERULAR FILTRATION RATE 57.2 (>49); GLUCOSE, FASTING 113 MG/DL (70-100); HDL CHOLESTEROL 28 MG/DL (>40); NON-HDL-C 160 MG/DL; POTASSIUM SERUM 4.5 MEQ/L (3.5-5.1); SODIUM LEVEL 138 MEQ/L (136-145); TOTAL PROTEIN 7.3 GM/DL (6.4-8.2); TRIGLYCERIDES LEVEL 568 MG/DL (<150)
[2020-09-03 16:43] LABS: HEMOGLOBIN A1c 6.6 %
[2020-09-03 16:59] LABS: MALB URINE SIEMENS 15.9 MG/L; MAU/CREAT RATIO 6.5 MCG/MG (0.0-30.0)
[2020-09-03 17:34] LABS: TOTAL 25(OH) VITAMIN D 22.6 NG/ML (30.0-100.0)
== END ==
LOC: M SFHCADAM 14:28
PROVIDERS: ATTEND Family Medicine
DX: E78.1 Pure hyperglyceridemia (principal); E55.9 Vitamin D deficiency, unspecified; K75.81 Nonalcoholic steatohepatitis (NASH); N18.9 Chronic kidney disease, unspecified; K21.9 Gastro-esophageal reflux disease without esophagitis; J45.909 Unspecified asthma, uncomplicated

== ENCOUNTER → 2020-11-07 | Outpatient (CLI) | payer OTHER ==
[~2020-11-07] MED LIST changes: -SIME180C PO; +SIME180C25 PO
== END ==
LOC: M LABSMTC 08:01
PROVIDERS: ATTEND Anesthesiology
DX: Z20.828 Contact with and (suspected) exposure to other viral communicable diseases (principal); Z11.59 Encounter for screening for other viral diseases

== ENCOUNTER 2020-11-12 09:02 | Day surgery (SDC) | payer OTHER ==
[~2020-11-12] VITALS: Ht 185.4 cm; Wt 157.4 kg
[~2020-11-12 09:02] MED LIST changes: +ERGO500029 PO; +NS 1,000 ML IV ONE; +OMEP40CA4 PO; -OMEP40CA97 PO
[2020-11-12] MEDS ORDERED: propofoL 200 MG/20 ML VIAL As Ordered ONE ×2 (09:27→10:00)
--- NOTE | 2020-11-12 10:09 | ROOR ---
Patient Name: Salomon Hampton Procedure Date: 11/12/2020 9:43 AM Date of : 1960 Age: 59 Room: [facility] Gender: Male Note Status: Finalized Procedure: Colonoscopy Indications: Rectal bleeding Providers: Matthew Tejeda Jr, MD Referring MD: ASTER Giordano Requesting Provider: Medicines: Propofol per Anesthesia Complications: No immediate complications. Procedure: Pre-Anesthesia Assessment: - Prior to the procedure, a History and Physical was performed, and patient medications and allergies were reviewed. The patient is competent. The risks and benefits of the procedure and the sedation options and risks were discussed with the patient. All questions were answered and informed consent was obtained. Patient identification and proposed procedure were verified by the physician and the nurse in the pre-procedure area and in the procedure room. Mental Status Examination: alert and oriented. Airway Examination: normal oropharyngeal airway and neck mobility. Respiratory Examination: clear to auscultation. CV Examination: normal. ASA Grade Assessment: II - A patient with mild systemic disease. After reviewing the risks and benefits, the patient was deemed in satisfactory condition to undergo the procedure. The anesthesia plan was to use moderate sedation / analgesia (conscious sedation). Immediately prior to administration of medications, the patient was re-assessed for adequacy to receive sedatives. The heart rate, respiratory rate, oxygen saturations, blood pressure, adequacy of pulmonary ventilation, and response to care were monitored throughout the procedure. The physical status of the patient was re-assessed after the procedure. The Colonoscope was introduced through the anus and advanced to the cecum, identified by appendiceal orifice and ileocecal valve. The colonoscopy was performed without difficulty. The patient tolerated the procedure poorly due to the patient's body habitus. The quality of the bowel preparation was fair. Findings: The rectum, sigmoid colon, descending colon, transverse colon, cecum, appendiceal orifice and ileocecal valve appeared normal. Three polyps were found in the recto-sigmoid colon and ascending colon. The polyps were diminutive in size. These polyps were removed with a cold snare. Resection and retrieval were complete. Non-bleeding external and internal hemorrhoids were found during perianal exam and during endoscopy. The hemorrhoids were moderate and Grade II (internal hemorrhoids that prolapse but reduce spontaneously). Impression: - Preparation of the colon was fair. - The rectum, sigmoid colon, descending colon, transverse colon, cecum, appendiceal orifice and ileocecal valve are normal. - Three diminutive polyps at the recto-sigmoid colon and in the ascending colon, removed with a cold snare. Resected and retrieved. - Non-bleeding external and internal hemorrhoids. Recommendation: - Discharge patient to home (ambulatory). - Repeat colonoscopy in 5-10 years for surveillance based on pathology results. Procedure Code(s): --- Professional --- 25308, Colonoscopy, flexible; with removal of tumor(s), polyp(s), or other lesion(s) by snare technique Diagnosis Code(s): --- Professional --- K64.1, Second degree hemorrhoids K63.5, Polyp of colon K62.5, Hemorrhage of anus and rectum CPT copyright 2019 [employer]. All rights reserved. The codes documented in this report are preliminary and upon helicopter engineer review may be revised to meet current compliance requirements. Matthew Tejeda MD Matthew Tejeda Jr, MD 11/12/2020 10:08:32 AM Electronically signed by Matthew Tejeda Jr, MD Number of Addenda: 0 Note Initiated On: 11/12/2020 9:43 AM Estimated Blood Loss: Estimated blood loss: none.
[2020-11-12 10:30] VITALS: BP 128/78
== END 2020-11-12 10:43 | disposition home or self-care (01) ==
LOC: M OPP 09:02
PROVIDERS: ATTEND Surgery
DX: K63.5 Polyp of colon (principal); K64.1 Second degree hemorrhoids; K62.5 Hemorrhage of anus and rectum; E11.9 Type 2 diabetes mellitus without complications; J44.9 Chronic obstructive pulmonary disease, unspecified; Z79.01 Long term (current) use of anticoagulants; Z79.82 Long term (current) use of aspirin; Z79.899 Other long term (current) drug therapy; Z87.891 Personal history of nicotine dependence; Z92.21 Personal history of antineoplastic chemotherapy; Z86.718 Personal history of other venous thrombosis and embolism; Z85.47 Personal history of malignant neoplasm of testis

== ENCOUNTER → 2020-12-18 | Outpatient (REF) | payer OTHER ==
[~2020-12-18] MED LIST changes: -CITA10TA5 PO; +CITA10TA7 PO; -NS 1,000 ML IV ONE
[2020-12-18 17:02] LABS: BASO # 0.1 10^3/uL (0.0-0.2); BASO % 1.5 % (0.0-1.0); EOS # 0.3 10^3/uL (0.0-0.5); EOS % 4.1 % (0.0-3.0); HEMATOCRIT 37.5 % (42.0-52.0); HEMOGLOBIN 11.3 g/dl (13.5-17.5); LYMPH # 2.4 10^3/uL (1.5-5.0); LYMPH % 31.7 % (24.0-44.0); MEAN CORPUSCULAR HEMOGLOBIN 27.8 pg (27.0-33.0); MEAN CORPUSCULAR HGB CONC 30.1 g/dl (32.0-36.5); MEAN CORPUSCULAR VOLUME 92.4 fl (80.0-96.0); MONO # 0.9 10^3/uL (0.0-0.8); MONO % 11.3 % (2.0-8.0); NEUTROPHILS # 3.8 10^3/uL (1.5-8.5); NEUTROPHILS % 50.7 % (36.0-66.0); PLATELET COUNT, AUTOMATED 191 10^3/uL (150-450); RED BLOOD COUNT 4.06 10^6/uL (4.30-6.10); WHITE BLOOD COUNT 7.5 10^3/uL (4.0-10.0)
[2020-12-18 17:27] LABS: ALBUMIN 3.7 GM/DL (3.2-5.2); BILIRUBIN,TOTAL 0.5 MG/DL (0.2-1.0); CALCIUM LEVEL 9.6 MG/DL (8.8-10.2); CREATININE FOR GFR 1.43 MG/DL (0.70-1.30); GLOMERULAR FILTRATION RATE 53.3 (>49); POTASSIUM SERUM 4.9 MEQ/L (3.5-5.1); TOTAL PROTEIN 7.7 GM/DL (6.4-8.2)
[2020-12-18 17:33] LABS: TOTAL 25(OH) VITAMIN D 28.4 NG/ML (30.0-100.0)
== END ==
LOC: M SFHCADAM 14:30
PROVIDERS: ATTEND Family Medicine
DX: R10.12 Left upper quadrant pain (principal); E11.22 Type 2 diabetes mellitus with diabetic chronic kidney disease; E78.1 Pure hyperglyceridemia; E55.9 Vitamin D deficiency, unspecified; K75.81 Nonalcoholic steatohepatitis (NASH); E66.01 Morbid (severe) obesity due to excess calories; N18.31 Chronic kidney disease, stage 3a; R42 Dizziness and giddiness
CPT/HCPCS: 80053; 82306; 82728; 85025; 85610; G0463

== ENCOUNTER → 2020-12-23 | Outpatient (CLI) | payer OTHER ==
[~2020-12-23] MED LIST changes: +CITA10TA5 PO; -CITA10TA7 PO; +GASTROGRAFIN SOLUTION 30ML (Q9963) ONE; +ISOVUE-370 76% 100ML VIAL ONE
--- NOTE | 2020-12-23 13:24 | REP ---
INDICATION: LUQ PAIN. COMPARISON: 08/26/2020 TECHNIQUE: Bolus 100 mL Isovue 370 and oral Gastrografin per are bowel contrast protocol then scanning through the abdomen and pelvis and with the delayed images also obtained through the abdomen. FINDINGS: CT abdomen: Some mild dependent atelectatic changes in both lower lung zones. No effusion or infiltrate. Heart size not grossly enlarged. Small hiatal hernia. There is some hepatomegaly with a 21 cm vertical diameter the right hepatic lobe in the mid clavicular line left lobe is prominent. I suspect some fatty infiltration. The liver is homogeneous. No biliary dilatation, mass, cyst or calcification. No adjacent ascites. No evidence for splenomegaly. The gallbladder shows no calcified stone or mass. Pancreas was unremarkable. The adrenal glands are normal. The kidneys show some mild lobation and extrarenal pelves but no hydronephrosis, stone, mass or cyst. Ureters show normal course to the bladder without dilatation. Small bowel loops show oral contrast reaching the terminal ileum just into the ileocecal valve. No dilated loops, air-fluid levels, masses, bowel wall thickening or inflammatory changes in the mesentery. Abdominal course of the colon shows no sign of colitis or diverticulitis. There is atherosclerotic calcification of the aorta without aneurysm. No periaortic, other retroperitoneal or mesenteric pathologic sized lymphadenopathy. No ventral hernia in the anterior abdominal wall. Bone windows show some degenerative the disc and facet changes lumbar spine without compression destructive lesion visualized ribs intact. CT pelvis: Bone windows show the sacrum, SI joints, pelvis and hips with mild degenerative changes without destructive lesion or fracture. Lung window review of all CT slices in the abdomen pelvis shows no perforation or free air. There is no ascites. Bladder shows no wall thickening stone or mass. There is no ventral or inguinal hernia in the pelvis nor inguinal pathologic sized adenopathy no pelvic lymphadenopathy. Distal left colon to the rectum shows no inflammatory change or colitis/diverticulitis. No mass. Small bowel loops in the pelvis were unremarkable. Appendix is not present. IMPRESSION: 1. A small hiatal hernia again noted but no evidence of left upper quadrant mass, adenopathy, colitis, diverticulitis, splenomegaly or focal lesion. 2. Some hepatomegaly with fatty infiltration of the liver but no biliary dilatation, ascites or hepatic mass. No calcified gallstones. Pancreas unremarkable. 3. Kidneys, collecting systems, ureters and bladder are all unremarkable. Small bowel loops and colon intact. Nothing acute. <Electronically signed by Elder Iniguez > 12/23/20 [id number]
== END ==
LOC: M PLAIMG 09:39
PROVIDERS: ATTEND Family Medicine
DX: R10.32 Left lower quadrant pain (principal)
CPT/HCPCS: 74177; Q9963; Q9967

== ENCOUNTER 2021-01-19 08:53 | Outpatient (RCR) | payer OTHER ==
[~2021-01-19 08:53] MED LIST changes: -GASTROGRAFIN SOLUTION 30ML (Q9963) ONE; -ISOVUE-370 76% 100ML VIAL ONE
== END 2021-01-26 ==
LOC: M PT 08:53
PROVIDERS: ATTEND Physician Assistant Medical
DX: I89.0 Lymphedema, not elsewhere classified (principal)

== ENCOUNTER → 2021-02-15 | Outpatient (REF) | payer OTHER ==
[~2021-02-15] MED LIST changes: -CITA10TA5 PO; +CITA10TA7 PO
[2021-02-15 18:19] LABS: BASO # 0.1 10^3/uL (0.0-0.2); BASO % 1.3 % (0.0-1.0); EOS # 0.4 10^3/uL (0.0-0.5); EOS % 4.2 % (0.0-3.0); HEMATOCRIT 36.3 % (42.0-52.0); LYMPH # 2.8 10^3/uL (1.5-5.0); LYMPH % 30.7 % (24.0-44.0); MEAN CORPUSCULAR HEMOGLOBIN 28.2 pg (27.0-33.0); MEAN CORPUSCULAR HGB CONC 30.3 g/dl (32.0-36.5); MEAN CORPUSCULAR VOLUME 93.1 fl (80.0-96.0); MONO # 0.9 10^3/uL (0.0-0.8); MONO % 10.4 % (2.0-8.0); NEUTROPHILS # 4.7 10^3/uL (1.5-8.5); NEUTROPHILS % 52.6 % (36.0-66.0); PLATELET COUNT, AUTOMATED 176 10^3/uL (150-450)
[2021-02-15 18:32] LABS: INR 2.49; PROTHROMBIN TIME 27.3 SECONDS (12.7-14.5)
[2021-02-15 18:43] LABS: HEMOGLOBIN A1c 6.7 %
[2021-02-15 18:58] LABS: ALBUMIN 3.3 GM/DL (3.2-5.2); ALT/SGPT 30 U/L (12-78); BILIRUBIN,TOTAL 0.5 MG/DL (0.2-1.0); BLOOD UREA NITROGEN 26 MG/DL (7-18); CALCIUM LEVEL 8.8 MG/DL (8.8-10.2); CARBON DIOXIDE LEVEL 29 MEQ/L (21-32); CHLORIDE LEVEL 101 MEQ/L (98-107); CHOLESTEROL LEVEL 166 MG/DL (<200); CHOLESTEROL RISK RATIO 5.533 (<5); CREATININE FOR GFR 1.22 MG/DL (0.70-1.30); FERRITIN 13 NG/ML (26-388); GLOMERULAR FILTRATION RATE > 60.0 (>49); GLUCOSE, FASTING 118 MG/DL (70-100); HDL CHOLESTEROL 30 MG/DL (>40); IRON (FE) 53 UG/DL (65-175); NON-HDL-C 136 MG/DL; PERCENT SATURATION 9.4 % (19.7-50.0); POTASSIUM SERUM 4.4 MEQ/L (3.5-5.1); SODIUM LEVEL 137 MEQ/L (136-145); TOTAL IRON BINDING CAPACITY 563 UG/DL (250-450); TOTAL PROTEIN 7.3 GM/DL (6.4-8.2); TRIGLYCERIDES LEVEL 579 MG/DL (<150)
== END ==
LOC: M SFHCADAM 15:39
PROVIDERS: ATTEND Physician Assistant Medical
DX: E11.22 Type 2 diabetes mellitus with diabetic chronic kidney disease (principal); E78.1 Pure hyperglyceridemia; E55.9 Vitamin D deficiency, unspecified; K75.81 Nonalcoholic steatohepatitis (NASH); E66.01 Morbid (severe) obesity due to excess calories; N18.31 Chronic kidney disease, stage 3a; R42 Dizziness and giddiness; Z79.01 Long term (current) use of anticoagulants; I82.531 Chronic embolism and thrombosis of right popliteal vein; Z79.51 Long term (current) use of inhaled steroids; Z79.899 Other long term (current) drug therapy

== ENCOUNTER 2021-02-23 08:14 | Outpatient (RCR) | payer OTHER ==
[~2021-02-23 08:14] MED LIST changes: +CITA10TA5 PO; -CITA10TA7 PO
== END 2021-02-25 ==
LOC: M PT 08:14
PROVIDERS: ATTEND Physician Assistant Medical
DX: I89.0 Lymphedema, not elsewhere classified (principal)

== ENCOUNTER 2021-03-23 08:21 | Outpatient (RCR) | payer OTHER | END 2021-03-28 | LOC: M PT 08:21 | PROVIDERS: ATTEND Physician Assistant Medical | DX: I89.0 Lymphedema, not elsewhere classified (principal) ==

== ENCOUNTER → 2021-06-15 | Outpatient (REF) | payer OTHER ==
[~2021-06-15] MED LIST changes: -CITA10TA5 PO; +CITA10TA7 PO
[2021-06-15 16:07] LABS: HEMATOCRIT 38.8 % (42.0-52.0); HEMOGLOBIN 11.8 g/dl (13.5-17.5); MEAN CORPUSCULAR HEMOGLOBIN 28.6 pg (27.0-33.0); MEAN CORPUSCULAR HGB CONC 30.4 g/dl (32.0-36.5); MEAN CORPUSCULAR VOLUME 94.2 fl (80.0-96.0); PLATELET COUNT, AUTOMATED 177 10^3/uL (150-450); RED BLOOD COUNT 4.12 10^6/uL (4.30-6.10); WHITE BLOOD COUNT 8.4 10^3/uL (4.0-10.0)
[2021-06-15 16:34] LABS: CREATININE, URINE 66.8 MG/DL; MALB URINE SIEMENS 10.9 MG/L; MAU/CREAT RATIO 16.3 MCG/MG (0.0-30.0)
[2021-06-15 16:45] LABS: ALBUMIN 3.7 GM/DL (3.2-5.2); BILIRUBIN,TOTAL 0.5 MG/DL (0.2-1.0); CALCIUM LEVEL 9.2 MG/DL (8.8-10.2); CHOLESTEROL RISK RATIO 3.615 (<5); CREATININE FOR GFR 1.44 MG/DL (0.70-1.30); GLOMERULAR FILTRATION RATE 52.9 (>49); PERCENT SATURATION 10.8 % (19.7-50.0); POTASSIUM SERUM 4.7 MEQ/L (3.5-5.1); THYROID STIMULATING HORMONE 2.01 uIU/ML (0.358-3.740); TOTAL 25(OH) VITAMIN D 42.6 NG/ML (30.0-100.0)
[2021-06-15 17:53] LABS: HEMOGLOBIN A1c 6.4 %
== END ==
LOC: M SFHCADAM 14:25
PROVIDERS: ATTEND Physician Assistant Medical
DX: D50.9 Iron deficiency anemia, unspecified (principal); E11.22 Type 2 diabetes mellitus with diabetic chronic kidney disease; E55.9 Vitamin D deficiency, unspecified; K75.81 Nonalcoholic steatohepatitis (NASH); Z86.718 Personal history of other venous thrombosis and embolism; Z79.899 Other long term (current) drug therapy
CPT/HCPCS: 80053; 80061; 82043; 82306; 82728; 83036; 83550; 84443; 85027; 85610; G0463

== ENCOUNTER → 2021-08-10 | Outpatient (REF) | payer OTHER ==
[2021-08-10 13:42] LABS: SOURCE, BODY FLUID LFT KNEE; SYNOVIAL FLUID COLOR RED (COLORLESS)
[2021-08-10 13:52] LABS: SOURCE, BODY FLUID GLUCOSE LFT KNEE
[2021-08-10 14:01] LABS: SOURCE, BODY FLUID CRYSTALS LFT KNEE
[2021-08-10 14:02] LABS: CRYSTALS, BODY FLUID NONE SEEN (NONE SEEN)
[2021-08-10 14:06] LABS: MUCIN CLOT TEST NO CLOT (4+)
== END ==
LOC: M LAB REF 12:57
PROVIDERS: ATTEND Orthopaedic Surgery
DX: M25.462 Effusion, left knee (principal)

== ENCOUNTER 2021-08-12 22:25 | Emergency (ER) | payer OTHER ==
[~2021-08-12] VITALS: Ht 185.4 cm; Wt 171.2 kg
[2021-08-12] MEDS ORDERED: NORCO, ANEXSIA 5/325MG TABLET (HYDROcodone/ACETAMINOPHEN) PO ONE (22:55)
[2021-08-13] MEDS ORDERED: HYDR-3713 PO (00:26)
[2021-08-13] MEDS ORDERED: NORCO, ANEXSIA 5/325MG TABLET (HYDROcodone/ACETAMINOPHEN) PO ONE (00:30)
[2021-08-13] MEDS ORDERED: NORCO 5/325MG TABLET (BULK FOR ED) PO ONE (00:30)
[2021-08-13 00:49] VITALS: BP 106/55
== END 2021-08-13 01:25 | disposition home or self-care (01) ==
LOC: M ED 22:25
DX: M25.562 Pain in left knee (principal); M25.462 Effusion, left knee; F32.A Depression, unspecified; J45.909 Unspecified asthma, uncomplicated; M54.50 Low back pain, unspecified; N18.30 Chronic kidney disease, stage 3 unspecified; Z79.01 Long term (current) use of anticoagulants; Z79.899 Other long term (current) drug therapy

== ENCOUNTER → 2021-08-13 | Outpatient (CLI) | payer OTHER ==
[~2021-08-13] MED LIST changes: +HYDR-3713 PO
== END ==
LOC: M RAD 12:29
PROVIDERS: ATTEND Orthopaedic Surgery
DX: S83.92XA Sprain of unspecified site of left knee, initial encounter (principal); X58.XXXA Exposure to other specified factors, initial encounter; Y92.89 Other specified places as the place of occurrence of the external cause; Y93.9 Activity, unspecified; Y99.9 Unspecified external cause status

== ENCOUNTER → 2021-11-11 | Outpatient (REF) | payer OTHER ==
[2021-11-12 12:47] LABS: BASO # 0.1 10^3/uL (0.0-0.2); BASO % 1.7 % (0.0-1.0); EOS # 0.3 10^3/uL (0.0-0.5); EOS % 3.6 % (0.0-3.0); LYMPH # 2.1 10^3/uL (1.5-5.0); LYMPH % 27.3 % (24.0-44.0); MEAN CORPUSCULAR HEMOGLOBIN 27.6 pg (27.0-33.0); MEAN CORPUSCULAR HGB CONC 30.6 g/dl (32.0-36.5); MEAN CORPUSCULAR VOLUME 90.2 fl (80.0-96.0); MONO % 13.5 % (2.0-8.0); NEUTROPHILS # 4.1 10^3/uL (1.5-8.5); NEUTROPHILS % 53.4 % (36.0-66.0); PLATELET COUNT, AUTOMATED 189 10^3/uL (150-450); RED BLOOD COUNT 3.99 10^6/uL (4.30-6.10); WHITE BLOOD COUNT 7.7 10^3/uL (4.0-10.0)
[2021-11-12 12:49] LABS: APPEARANCE, URINE CLEAR (CLEAR); BACTERIA, URINE AUTO NEGATIVE (NEGATIVE); BILIRUBIN, URINE AUTO NEGATIVE (NEGATIVE); BLOOD, URINE BLOOD NEGATIVE (NEGATIVE); COLOR, URINE YELLOW (YELLOW); GLUCOSE, URINE (UA) AUTO NEGATIVE (NEGATIVE); KETONE, URINE AUTO NEGATIVE (NEGATIVE); LEUKOCYTE ESTERASE, URINE AUTO NEGATIVE (NEGATIVE); MUCUS, URINE SMALL (NEGATIVE); NITRITE, URINE AUTO NEGATIVE (NEGATIVE); PROTEIN, URINE AUTO NEGATIVE (NEGATIVE); RBC, URINE AUTO 0 /HPF (0-3); SPECIFIC GRAVITY URINE AUTO 1.023 (1.002-1.035); SQUAMOUS EPITHELIAL CELL UR AU 0 /HPF (0-6); UROBILINOGEN, URINE AUTO 0.2 mg/dL (0.0-2.0); WBC, URINE AUTO 1 /HPF (0-3)
[2021-11-12 13:14] LABS: HEMOGLOBIN A1c 6.2 %
[2021-11-12 13:28] LABS: ALBUMIN 3.5 GM/DL (3.2-5.2); ALT/SGPT 27 U/L (12-78); BILIRUBIN,TOTAL 0.5 MG/DL (0.2-1.0); BLOOD UREA NITROGEN 24 MG/DL (7-18); CALCIUM LEVEL 8.4 MG/DL (8.8-10.2); CARBON DIOXIDE LEVEL 29 MEQ/L (21-32); CHLORIDE LEVEL 105 MEQ/L (98-107); CHOLESTEROL LEVEL 132 MG/DL (<200); CHOLESTEROL RISK RATIO 3.666 (<5); CREATININE FOR GFR 1.25 MG/DL (0.70-1.30); GLOMERULAR FILTRATION RATE > 60.0 (>49); GLUCOSE, FASTING 84 MG/DL (70-100); HDL CHOLESTEROL 36 MG/DL (>40); LDL CHOLESTEROL 53 MG/DL (<100); NON-HDL-C 96 MG/DL; SODIUM LEVEL 137 MEQ/L (136-145); TOTAL PROTEIN 8.1 GM/DL (6.4-8.2); TRIGLYCERIDES LEVEL 214 MG/DL (<150)
== END ==
LOC: M SFHCADAM 15:57
PROVIDERS: ATTEND Physician Assistant Medical
DX: E78.1 Pure hyperglyceridemia (principal); E66.01 Morbid (severe) obesity due to excess calories; K21.9 Gastro-esophageal reflux disease without esophagitis; E11.22 Type 2 diabetes mellitus with diabetic chronic kidney disease; I82.531 Chronic embolism and thrombosis of right popliteal vein; R35.0 Frequency of micturition

== ENCOUNTER → 2021-12-14 | Outpatient (CLI) | payer OTHER | LOC: M ADAMS 14:38 | PROVIDERS: ATTEND Family Medicine | DX: M77.31 Calcaneal spur, right foot (principal); I82.531 Chronic embolism and thrombosis of right popliteal vein ==

== ENCOUNTER → 2022-02-08 | Outpatient (CLI) | payer OTHER | LOC: M ADAMS 11:27 | PROVIDERS: ATTEND Physician Assistant Medical | DX: S92.511A Displaced fracture of proximal phalanx of right lesser toe(s), initial encounter for closed fracture (principal); M19.071 Primary osteoarthritis, right ankle and foot; Y92.9 Unspecified place or not applicable; Y93.9 Activity, unspecified ==

== ENCOUNTER → 2022-02-08 | Outpatient (REF) | payer OTHER ==
[2022-02-08 18:30] LABS: BASO # 0.1 10^3/uL (0.0-0.2); BASO % 2.1 % (0.0-1.0); EOS # 0.2 10^3/uL (0.0-0.5); EOS % 2.9 % (0.0-3.0); HEMATOCRIT 35.9 % (42.0-52.0); HEMOGLOBIN 10.4 g/dl (13.5-17.5); LYMPH # 1.7 10^3/uL (1.5-5.0); LYMPH % 25.6 % (24.0-44.0); MEAN CORPUSCULAR HEMOGLOBIN 26.2 pg (27.0-33.0); MEAN CORPUSCULAR VOLUME 90.4 fl (80.0-96.0); MONO # 0.7 10^3/uL (0.0-0.8); MONO % 10.3 % (2.0-8.0); NEUTROPHILS % 58.5 % (36.0-66.0); PLATELET COUNT, AUTOMATED 188 10^3/uL (150-450); RED BLOOD COUNT 3.97 10^6/uL (4.30-6.10); WHITE BLOOD COUNT 6.8 10^3/uL (4.0-10.0)
[2022-02-08 19:46] LABS: PERCENT SATURATION 7.8 % (19.7-50.0)
== END ==
LOC: M SFHCADAM 11:24
PROVIDERS: ATTEND Physician Assistant Medical
DX: D50.9 Iron deficiency anemia, unspecified (principal)

== ENCOUNTER 2022-03-08 18:14 | Emergency (ER) | payer OTHER ==
[2022-03-09] MEDS ORDERED: ACET300T48 (09:50)
[2022-03-09] MEDS ORDERED: DOXY-350 PO (13:42)
== END 2022-03-08 19:30 | disposition left against medical advice (07) ==
LOC: M ED 18:14
DX: Z53.21 Procedure and treatment not carried out due to patient leaving prior to being seen by health care provider (principal)

== ENCOUNTER 2022-03-09 09:42 | Emergency (ER) | payer OTHER ==
[~2022-03-09] VITALS: Ht 180.3 cm; Wt 158.3 kg
[2022-03-09] MEDS ORDERED: ACET300T48 (09:50)
[2022-03-09 11:52] LABS: BASO # 0.1 10^3/uL (0.0-0.2); BASO % 0.9 % (0.0-1.0); EOS # 0.2 10^3/uL (0.0-0.5); EOS % 2.1 % (0.0-3.0); HEMATOCRIT 36.2 % (42.0-52.0); HEMOGLOBIN 10.6 g/dl (13.5-17.5); LYMPH # 2.1 10^3/uL (1.5-5.0); LYMPH % 24.5 % (24.0-44.0); MEAN CORPUSCULAR HEMOGLOBIN 27.3 pg (27.0-33.0); MEAN CORPUSCULAR HGB CONC 29.3 g/dl (32.0-36.5); MEAN CORPUSCULAR VOLUME 93.3 fl (80.0-96.0); MONO # 1.1 10^3/uL (0.0-0.8); MONO % 12.2 % (2.0-8.0); NEUTROPHILS # 5.1 10^3/uL (1.5-8.5); PLATELET COUNT, AUTOMATED 162 10^3/uL (150-450); RED BLOOD COUNT 3.88 10^6/uL (4.30-6.10); WHITE BLOOD COUNT 8.6 10^3/uL (4.0-10.0)
[2022-03-09 12:10] LABS: INR 2.32; PROTHROMBIN TIME 25.9 SECONDS (12.5-14.5)
[2022-03-09 12:30] LABS: C REACTIVE PROTEIN QUANTITATIV 3.85 MG/DL (0.00-0.30); CALCIUM LEVEL 8.5 MG/DL (8.8-10.2); CREATININE FOR GFR 1.46 MG/DL (0.70-1.30); GLOMERULAR FILTRATION RATE 51.9 (>49); POTASSIUM SERUM 4.6 MEQ/L (3.5-5.1); URIC ACID 4.2 MG/DL (3.5-7.2)
[2022-03-09 12:54] LABS: ERYTHROCYTE SEDIMENTATION RATE 81 mm/hr (0-20)
[2022-03-09] MEDS ORDERED: DOXY-350 PO (13:42)
[2022-03-09] MEDS ORDERED: DOXYCYCLINE HYCLATE 100MG TABLET PO ONE (13:45)
[2022-03-09 13:49] VITALS: BP 157/89
== END 2022-03-09 13:51 | disposition home or self-care (01) ==
LOC: M ED 09:42
DX: L03.115 Cellulitis of right lower limb (principal); M47.892 Other spondylosis, cervical region; K21.9 Gastro-esophageal reflux disease without esophagitis; N18.30 Chronic kidney disease, stage 3 unspecified; Z85.46 Personal history of malignant neoplasm of prostate; Z79.82 Long term (current) use of aspirin; Z79.51 Long term (current) use of inhaled steroids; Z79.899 Other long term (current) drug therapy; Z79.01 Long term (current) use of anticoagulants

== ENCOUNTER → 2022-05-03 | Outpatient (REF) | payer OTHER ==
[~2022-05-03] MED LIST changes: +ACET300T48; +DOXY-444 PO
== END ==
LOC: M SFHCPLAZ 09:56
PROVIDERS: ATTEND Physician Assistant
DX: S80.811A Abrasion, right lower leg, initial encounter (principal); W18.30XA Fall on same level, unspecified, initial encounter; Y92.009 Unspecified place in unspecified non-institutional (private) residence as the place of occurrence of the external cause

== ENCOUNTER → 2022-05-10 | Outpatient (REF) | payer OTHER ==
[2022-05-11 14:55] LABS: HEMOGLOBIN 10.9 g/dl (13.5-17.5); MEAN CORPUSCULAR HEMOGLOBIN 28.2 pg (27.0-33.0); MEAN CORPUSCULAR HGB CONC 30.3 g/dl (32.0-36.5); MEAN CORPUSCULAR VOLUME 93.3 fl (80.0-96.0); PLATELET COUNT, AUTOMATED 178 10^3/uL (150-450); RED BLOOD COUNT 3.86 10^6/uL (4.30-6.10); WHITE BLOOD COUNT 7.1 10^3/uL (4.0-10.0)
[2022-05-11 15:19] LABS: HEMOGLOBIN A1c 5.4 % (4.0-6.0)
[2022-05-11 15:23] LABS: FERRITIN 13.3 NG/ML (10.5-307.3)
[2022-05-11 15:33] LABS: CREATININE, URINE 158.4 MG/DL; MAU/CREAT RATIO 3.1 MCG/MG (0.0-30.0)
[2022-05-11 16:26] LABS: PERCENT SATURATION 13.1 % (19.7-50.0)
== END ==
LOC: M SFHCADAM 15:23
PROVIDERS: ATTEND Physician Assistant Medical
DX: D50.9 Iron deficiency anemia, unspecified (principal); E11.22 Type 2 diabetes mellitus with diabetic chronic kidney disease

== ENCOUNTER → 2022-06-02 | Outpatient (CLI) | payer OTHER | LOC: M SOG 08:12 | PROVIDERS: ATTEND Physician Assistant | DX: M19.031 Primary osteoarthritis, right wrist (principal); M19.032 Primary osteoarthritis, left wrist ==

== ENCOUNTER 2022-06-30 18:24 | Inpatient (IN) | payer OTHER ==
[~2022-06-30] VITALS: Ht 185.4 cm; Wt 150.0 kg
[2022-06-30 20:25] LABS: BASO # 0.1 10^3/uL (0.0-0.2); BASO % 0.8 % (0.0-1.0); EOS # 0.1 10^3/uL (0.0-0.5); EOS % 0.8 % (0.0-3.0); HEMATOCRIT 35.6 % (42.0-52.0); LYMPH # 2.3 10^3/uL (1.5-5.0); LYMPH % 22.7 % (24.0-44.0); MEAN CORPUSCULAR HEMOGLOBIN 28.8 pg (27.0-33.0); MEAN CORPUSCULAR HGB CONC 30.9 g/dl (32.0-36.5); MEAN CORPUSCULAR VOLUME 93.2 fl (80.0-96.0); MONO # 1.4 10^3/uL (0.0-0.8); MONO % 13.8 % (2.0-8.0); NEUTROPHILS # 6.1 10^3/uL (1.5-8.5); NEUTROPHILS % 61.4 % (36.0-66.0); PLATELET COUNT, AUTOMATED 161 10^3/uL (150-450); RED BLOOD COUNT 3.82 10^6/uL (4.30-6.10); WHITE BLOOD COUNT 9.9 10^3/uL (4.0-10.0)
[2022-06-30 20:32] LABS: ERYTHROCYTE SEDIMENTATION RATE 97 mm/hr (0-20)
[2022-06-30 21:01] LABS: ALBUMIN 3.3 G/DL (3.2-5.2); BILIRUBIN,DIRECT 0.4 MG/DL (<0.4); BILIRUBIN,TOTAL 1.2 MG/DL (0.3-1.2); CALCIUM LEVEL 8.6 MG/DL (8.3-10.6); CREATININE FOR GFR 1.31 MG/DL (0.70-1.30); GLOMERULAR FILTRATION RATE 58.8 (>49); POTASSIUM SERUM 4.3 MMOL/L (3.5-5.1); TOTAL PROTEIN 7.9 G/DL (5.7-8.2)
[2022-06-30 21:12] LABS: RSV AMPLIFICATION NEGATIVE (NEGATIVE)
[2022-06-30 21:22] LABS: INR 2.02; PROTHROMBIN TIME 23.2 SECONDS (12.5-14.5)
[2022-06-30 21:23] LABS: PARTIAL THROMBOPLASTIN TIME 45.6 SECONDS (24.8-34.2)
[2022-06-30] MEDS ORDERED: VANCOMYCIN HCL 2,000 MG in IV FLUID PLACE HOLDER 1 EA IV ONE (22:00)
[2022-06-30] MEDS ORDERED: PIPERACILLIN/TAZOBACTAM SOD 3.375 GM in D5W MINI-BAG PLUS 50 ML IV ONE (22:00)
[2022-06-30] MEDS ORDERED: VANCOMYCIN HCL 1,000 MG, VIAL MATE ADAPTER 1 EACH in NS 250 ML IV ONE (23:00)
[2022-06-30] MEDS ORDERED: ALLO300T2 PO (23:46)
[2022-06-30] MEDS ORDERED: ASPI-161 PO (23:46)
[2022-06-30] MEDS ORDERED: TIRZ2.5P SC (23:46)
[2022-06-30] MEDS ORDERED: PX F0.52 PO (23:46)
[2022-06-30] MEDS ORDERED: VITA500030 PO (23:46)
[2022-06-30] MEDS ORDERED: ALBU8.5H INH (23:46)
[2022-06-30] MEDS ORDERED: HOME MED LIST COMPLETE! XX SCH (23:50)
[2022-07-01] MEDS ORDERED: VANCOMYCIN HCL 1,000 MG, VIAL MATE ADAPTER 1 EACH in NS 250 ML IV ONE ×3
[2022-07-01] MEDS ORDERED: VANCOMYCIN HCL 1,000 MG, VIAL MATE ADAPTER 1 EACH in NS 250 ML IV SCH (00:35)
[2022-07-01] MEDS ORDERED: methylPREDNISolone 40MG 1ML VIAL IV ONE (00:35)
[2022-07-01] MEDS ORDERED: ACETAMINOPHEN TAB 650MG DOSE (2X325MG) PO PRN (00:35)
[2022-07-01] MEDS ORDERED: PERCOCET 5MG/325MG TAB PO PRN (00:35)
[2022-07-01] MEDS ORDERED: ALBUTEROL 90 MCG/ACT 8GM HFA INHALER INH PRN (00:35)
[2022-07-01 01:40] VITALS: BP 142/57
[2022-07-01] MEDS: CitaloPRAM (CeleXA) 10 MG TABLET PO SCH ×2 (02:08→22:16)
[2022-07-01] MEDS: SIMVASTATIN 40 MG TAB PO SCH ×2 (02:08→22:18)
[2022-07-01] MEDS: ASPIRIN 81MG ENTERIC TABLET PO SCH ×2 (02:08→22:17)
[2022-07-01] MEDS: WARFARIN SOD 5MG TAB PO SCH ×2 (02:08→22:17)
[2022-07-01] MEDS: PERCOCET 5MG/325MG TAB PO PRN ×2 (02:10→09:06)
[2022-07-01 06:00] VITALS: BP 111/65
[2022-07-01 06:07] LABS: HEMATOCRIT 33.8 % (42.0-52.0); HEMOGLOBIN 10.6 g/dl (13.5-17.5); MEAN CORPUSCULAR HGB CONC 31.4 g/dl (32.0-36.5); MEAN CORPUSCULAR VOLUME 92.3 fl (80.0-96.0); PLATELET COUNT, AUTOMATED 146 10^3/uL (150-450); RED BLOOD COUNT 3.66 10^6/uL (4.30-6.10); WHITE BLOOD COUNT 7.6 10^3/uL (4.0-10.0)
[2022-07-01 06:29] LABS: INR 2.05; PROTHROMBIN TIME 23.5 SECONDS (12.5-14.5)
[2022-07-01 06:37] LABS: BLOOD UREA NITROGEN 25 MG/DL (9-23); CALCIUM LEVEL 8.4 MG/DL (8.3-10.6); CARBON DIOXIDE LEVEL 26 MMOL/L (20-31); CHLORIDE LEVEL 103 MMOL/L (98-107); CREATININE FOR GFR 1.27 MG/DL (0.70-1.30); GLOMERULAR FILTRATION RATE > 60.0 (>49); GLUCOSE, FASTING 116 MG/DL (74-106); POTASSIUM SERUM 4.5 MMOL/L (3.5-5.1); SODIUM LEVEL 137 MMOL/L (136-145)
[2022-07-01] MEDS: SYMBICORT 160/4.5MCG INHALER 6GM INH SCH ×2 (07:09→19:47)
[2022-07-01] MEDS: OMEPRAZOLE 20MG CAP PO SCH ×2 (08:42→22:17)
[2022-07-01] MEDS: VANCOMYCIN HCL 1,000 MG, VIAL MATE ADAPTER 1 EACH in D5W 250 ML IV SCH ×2 (10:05→22:18)
[2022-07-01 15:13] VITALS: BP 109/59
[2022-07-01] MEDS ORDERED: MELOXICAM (MOBIC) 7.5 MG TAB PO SCH (21:00)
[2022-07-01 22:00] VITALS: BP 130/63
[2022-07-02 06:00] VITALS: BP 110/63
[2022-07-02 06:09] LABS: BASO # 0.1 10^3/uL (0.0-0.2); BASO % 0.6 % (0.0-1.0); EOS % 0.5 % (0.0-3.0); HEMATOCRIT 33.1 % (42.0-52.0); HEMOGLOBIN 10.3 g/dl (13.5-17.5); LYMPH # 1.7 10^3/uL (1.5-5.0); LYMPH % 20.8 % (24.0-44.0); MEAN CORPUSCULAR HEMOGLOBIN 29.1 pg (27.0-33.0); MEAN CORPUSCULAR HGB CONC 31.1 g/dl (32.0-36.5); MEAN CORPUSCULAR VOLUME 93.5 fl (80.0-96.0); MONO # 0.9 10^3/uL (0.0-0.8); MONO % 10.2 % (2.0-8.0); NEUTROPHILS # 5.6 10^3/uL (1.5-8.5); NEUTROPHILS % 67.3 % (36.0-66.0); PLATELET COUNT, AUTOMATED 146 10^3/uL (150-450); RED BLOOD COUNT 3.54 10^6/uL (4.30-6.10); WHITE BLOOD COUNT 8.4 10^3/uL (4.0-10.0)
[2022-07-02 06:35] LABS: INR 2.6; PROTHROMBIN TIME 28.3 SECONDS (12.5-14.5)
[2022-07-02 06:39] LABS: ALBUMIN 2.6 G/DL (3.2-5.2); ALKALINE PHOSPHATASE 216 U/L (46-116); ALT/SGPT 14 U/L (7.0-40); AST/SGOT 47 U/L (<34); BILIRUBIN,TOTAL 0.6 MG/DL (0.3-1.2); BLOOD UREA NITROGEN 28 MG/DL (9-23); CALCIUM LEVEL 8.5 MG/DL (8.3-10.6); CARBON DIOXIDE LEVEL 28 MMOL/L (20-31); CHLORIDE LEVEL 105 MMOL/L (98-107); CREATININE FOR GFR 1.16 MG/DL (0.70-1.30); GLOMERULAR FILTRATION RATE > 60.0 (>49); GLUCOSE, FASTING 104 MG/DL (74-106); MAGNESIUM LEVEL 2.1 MG/DL (1.8-2.4); POTASSIUM SERUM 4.3 MMOL/L (3.5-5.1); SODIUM LEVEL 141 MMOL/L (136-145); TOTAL PROTEIN 6.9 G/DL (5.7-8.2)
[2022-07-02] MEDS: SYMBICORT 160/4.5MCG INHALER 6GM INH SCH (07:34)
[2022-07-02] MEDS: OMEPRAZOLE 20MG CAP PO SCH (08:01)
[2022-07-02] MEDS ORDERED: DOXY-444 PO (09:36)
[2022-07-02] MEDS ORDERED: ACET1TAB55 PO (09:36)
[2022-07-02] MEDS: VANCOMYCIN HCL 1,000 MG, VIAL MATE ADAPTER 1 EACH in D5W 250 ML IV SCH (10:08)
[2022-07-02] MEDS: PERCOCET 5MG/325MG TAB PO PRN (10:15)
== END 2022-07-02 12:55 | disposition home or self-care (01) | DRG 603 ==
LOC: M ED 18:24 → M ED INP 07-01 00:32 → ENRESERV 07-01 01:15 → M MSPAV 07-01 01:35
PROVIDERS: ADMIT Internal Medicine; ATTEND Family Medicine
DX: L03.115 Cellulitis of right lower limb (principal); J45.909 Unspecified asthma, uncomplicated; K21.9 Gastro-esophageal reflux disease without esophagitis; N18.30 Chronic kidney disease, stage 3 unspecified; I89.0 Lymphedema, not elsewhere classified; F32.A Depression, unspecified; F41.9 Anxiety disorder, unspecified; Z90.79 Acquired absence of other genital organ(s); Z85.47 Personal history of malignant neoplasm of testis; Z86.711 Personal history of pulmonary embolism; Z86.718 Personal history of other venous thrombosis and embolism; Z79.01 Long term (current) use of anticoagulants

== ENCOUNTER → 2022-07-26 | Outpatient (POV) | payer OTHER ==
[~2022-07-26] VITALS: Ht 185.4 cm; Wt 151.3 kg
[~2022-07-26] MED LIST changes: +ACET1TAB55 PO; +ALBU8.5H INH; +ALLO300T2 PO; +ASPI-161 PO; +PX F0.52 PO; +TIRZ2.5P SC; +VITA500030 PO
[2022-07-26 08:15] VITALS: BP 132/72
== END ==
LOC: M IRPOV 08:03
PROVIDERS: ATTEND Radiology Diagnostic Radiology
DX: E11.622 Type 2 diabetes mellitus with other skin ulcer (principal); L97.819 Non-pressure chronic ulcer of other part of right lower leg with unspecified severity; I83.213 Varicose veins of right lower extremity with both ulcer of ankle and inflammation; R60.0 Localized edema; Z79.01 Long term (current) use of anticoagulants; Z79.82 Long term (current) use of aspirin; Z79.899 Other long term (current) drug therapy

== ENCOUNTER → 2022-08-02 | Outpatient (REF) | payer OTHER | LOC: M SFHCWOUN 12:55 | PROVIDERS: ATTEND Physician Assistant | DX: L97.812 Non-pressure chronic ulcer of other part of right lower leg with fat layer exposed (principal) ==

== ENCOUNTER → 2022-08-04 | Outpatient (CLI) | payer OTHER | LOC: M RAD 11:14 | PROVIDERS: ATTEND Surgery | DX: L97.812 Non-pressure chronic ulcer of other part of right lower leg with fat layer exposed (principal); R68.89 Other general symptoms and signs ==

== ENCOUNTER → 2022-08-16 | Outpatient (CLI) | payer OTHER | LOC: M RAD 10:20 | PROVIDERS: ATTEND Surgery | DX: I87.311 Chronic venous hypertension (idiopathic) with ulcer of right lower extremity (principal); L97.812 Non-pressure chronic ulcer of other part of right lower leg with fat layer exposed; I87.302 Chronic venous hypertension (idiopathic) without complications of left lower extremity ==

== ENCOUNTER 2022-10-12 06:09 | Day surgery (SDC) | payer OTHER ==
[~2022-10-12] VITALS: Ht 185.4 cm; Wt 144.2 kg
[~2022-10-12 06:09] MED LIST changes: +META58.68 PO; +WARF-22 PO; +ceFAZolin SOD 1 GM in D5W MINI-BAG PLUS 50 ML IV ONE; +ceFAZolin SOD 2 GM in IV 1 EA IV ONE
[2022-10-12] MEDS ORDERED: LR 1,000 ML IV SCH ×2 (06:40→09:10)
[2022-10-12] MEDS ORDERED: BUPIVACAINE HCL 0.25% 30ML VIAL As Ordered ONE (07:09)
[2022-10-12] MEDS ORDERED: fentaNYL 100 MCG/2 ML INJECTION As Ordered ONE (07:15)
[2022-10-12] MEDS ORDERED: LIDOCAINE 2% 100MG/5ML SDV (FOR ANES.) As Ordered ONE (07:15)
[2022-10-12] MEDS ORDERED: ONDANSETRON 4MG 2ML VIAL As Ordered ONE (07:15)
[2022-10-12] MEDS ORDERED: KETOROLAC 60MG 2ML VIAL As Ordered ONE (07:15)
[2022-10-12] MEDS ORDERED: propofoL 200 MG/20 ML VIAL As Ordered ONE (07:15)
[2022-10-12] MEDS ORDERED: ACETAMINOPHEN 1000MG 100ML IV BAG As Ordered ONE (07:15)
[2022-10-12] MEDS ORDERED: MIDAZOLAM INJ 2MG/2ML VIAL As Ordered ONE (07:16)
[2022-10-12 07:25] LABS: INR 1.65; PROTHROMBIN TIME 19.8 SECONDS (12.5-14.5)
[2022-10-12 07:26] LABS: PARTIAL THROMBOPLASTIN TIME 43.1 SECONDS (24.8-34.2)
[2022-10-12] MEDS ORDERED: PHENYLEPHRINE 10MG/ML 1ML VIAL As Ordered ONE (08:03)
[2022-10-12] MEDS ORDERED: VANCOMYCIN 1000MG/20ML VIAL As Ordered ONE (08:44)
[2022-10-12] MEDS ORDERED: BACITRACIN OINTMENT 30GM TUBE As Ordered ONE (09:00)
[2022-10-12] MEDS ORDERED: ONDANSETRON 4MG 2ML VIAL IV PRN (09:10)
[2022-10-12] MEDS ORDERED: HYDROMORPHONE HCL 0.5 MG/ 0.5 ML SYRINGE IV PRN (09:10)
[2022-10-12] MEDS: fentaNYL 100 MCG/2 ML INJECTION IV PRN ×4 (09:27→09:48)
[2022-10-12] MEDS: oxyCODONE 5MG TAB PO PRN ×2 (09:27→09:58)
[2022-10-12] MEDS ORDERED: PERC5TAB12 PO (09:32)
[2022-10-12 10:30] VITALS: BP 138/74
== END 2022-10-12 10:46 | disposition home or self-care (01) ==
LOC: M SDC 06:09
PROVIDERS: ATTEND Orthopaedic Surgery Hand Surgery
DX: S91.001A Unspecified open wound, right ankle, initial encounter (principal); K21.9 Gastro-esophageal reflux disease without esophagitis; Z85.47 Personal history of malignant neoplasm of testis; N18.30 Chronic kidney disease, stage 3 unspecified; J44.9 Chronic obstructive pulmonary disease, unspecified; E78.00 Pure hypercholesterolemia, unspecified; M10.9 Gout, unspecified; Z87.891 Personal history of nicotine dependence; Z79.52 Long term (current) use of systemic steroids; Z79.01 Long term (current) use of anticoagulants; Z79.899 Other long term (current) drug therapy; Z79.51 Long term (current) use of inhaled steroids
CPT/HCPCS: 20680; 36415; 76000; 85610; 85730; 87070; 87075; 87077; 87186; J0131; J1100; J1885; J2250; J2370; J2405; J3010

== ENCOUNTER → 2022-10-25 | Outpatient (CLI) | payer OTHER ==
[~2022-10-25] MED LIST changes: -ceFAZolin SOD 1 GM in D5W MINI-BAG PLUS 50 ML IV ONE; -ceFAZolin SOD 2 GM in IV 1 EA IV ONE
== END ==
LOC: M SOG 14:41
PROVIDERS: ATTEND Orthopaedic Surgery Hand Surgery
DX: S81.801D Unspecified open wound, right lower leg, subsequent encounter (principal)

== ENCOUNTER 2023-01-19 11:41 | Inpatient (IN) | payer OTHER ==
[~2023-01-19] VITALS: Ht 185.4 cm; Wt 141.1 kg
[2023-01-19] MEDS ORDERED: ceFAZolin SOD 1 GM in D5W MINI-BAG PLUS 50 ML IV ONE (12:45)
[2023-01-19] MEDS ORDERED: MED REC IN PROGRESS XX SCH (13:20)
[2023-01-19 13:27] LABS: BASO # 0.1 10^3/uL (0.0-0.2); BASO % 0.6 % (0.0-1.0); EOS # 0.1 10^3/uL (0.0-0.5); EOS % 0.9 % (0.0-3.0); HEMATOCRIT 36.7 % (42.0-52.0); HEMOGLOBIN 11.8 g/dl (13.5-17.5); LYMPH % 18.1 % (24.0-44.0); MEAN CORPUSCULAR HEMOGLOBIN 30.5 pg (27.0-33.0); MEAN CORPUSCULAR HGB CONC 32.2 g/dl (32.0-36.5); MEAN CORPUSCULAR VOLUME 94.8 fl (80.0-96.0); MONO # 1.2 10^3/uL (0.0-0.8); MONO % 11.4 % (2.0-8.0); NEUTROPHILS # 7.4 10^3/uL (1.5-8.5); NEUTROPHILS % 68.5 % (36.0-66.0); PLATELET COUNT, AUTOMATED 121 10^3/uL (150-450); RED BLOOD COUNT 3.87 10^6/uL (4.30-6.10); WHITE BLOOD COUNT 10.9 10^3/uL (4.0-10.0)
[2023-01-19] MEDS ORDERED: NS 1,000 ML IV ONE (13:30)
[2023-01-19] MEDS ORDERED: META0.52 PO (13:40)
[2023-01-19] MEDS ORDERED: ACET-683 PO (13:40)
[2023-01-19] MEDS ORDERED: WARF-23 PO (13:40)
[2023-01-19] MEDS ORDERED: VITA30004 PO (13:40)
[2023-01-19] MEDS ORDERED: ASPI81CH33 PO (13:40)
[2023-01-19 13:44] LABS: BLOOD UREA NITROGEN 24 MG/DL (9-23); CARBON DIOXIDE LEVEL 28 MMOL/L (20-31); CHLORIDE LEVEL 105 MMOL/L (98-107); CREATININE FOR GFR 1.13 MG/DL (0.70-1.30); GLOMERULAR FILTRATION RATE > 60.0 (>49); GLUCOSE, FASTING 97 MG/DL (74-106); POTASSIUM SERUM 4.5 MMOL/L (3.5-5.1); SODIUM LEVEL 139 MMOL/L (136-145)
[2023-01-19 13:46] LABS: ERYTHROCYTE SEDIMENTATION RATE 73 mm/hr (0-20)
[2023-01-19 13:58] LABS: INR 2.06; PARTIAL THROMBOPLASTIN TIME 37.2 SECONDS (24.8-34.2); PROTHROMBIN TIME 22.7 SECONDS (12.5-14.5)
[2023-01-19] MEDS ORDERED: HOME MED LIST COMPLETE! XX SCH (14:00)
[2023-01-19] MEDS ORDERED: PIPERACILLIN/TAZOBACTAM SOD 3.375 GM in D5W MINI-BAG PLUS 50 ML IV ONE (15:10)
[2023-01-19] MEDS ORDERED: VANCOMYCIN HCL 2,000 MG in D5W 500 ML IV ONE (15:10)
[2023-01-19] MEDS ORDERED: VANCOMYCIN HCL 1,000 MG, VIAL MATE ADAPTER 1 EACH in D5W 250 ML IV ONE ×2 (16:00→17:00)
[2023-01-19] MEDS ORDERED: GLUCOSE 4GM CHEW TABLET PO PRN (16:20)
[2023-01-19] MEDS ORDERED: GLUCAGON INJ 1MG VIAL SC PRN (16:20)
[2023-01-19] MEDS ORDERED: ACETAMINOPHEN TAB 650MG DOSE (2X325MG) PO PRN (16:20)
[2023-01-19] MEDS ORDERED: DEXTROSE 50% 50ML SYRINGE IV PRN (16:20)
[2023-01-19] MEDS ORDERED: VANCOMYCIN HCL 1,000 MG, VIAL MATE ADAPTER 1 EACH in D5W 250 ML IV SCH (16:20)
[2023-01-19] MEDS ORDERED: ALBUTEROL 90 MCG/ACT 8GM HFA INHALER INH PRN (16:20)
[2023-01-19] MEDS ORDERED: traMADol 50 MG TAB PO PRN (16:20)
[2023-01-19] MEDS ORDERED: MIRALAX *UNIT DOSE* 17GM PACKET PO PRN (16:20)
[2023-01-19] MEDS ORDERED: WARFARIN SOD 5MG TAB PO SCH (17:00)
[2023-01-19] MEDS: INSULIN LISPRO (NovoLOG) PER UNIT SC SCH ×2 (17:30→20:23)
[2023-01-19 19:54] VITALS: BP 123/69; TEMP 99.5; O2SAT 94
[2023-01-19] MEDS: ASPIRIN 81MG CHEW TABLET PO SCH (20:22)
[2023-01-19] MEDS: MELOXICAM (MOBIC) 7.5 MG TAB PO SCH (20:22)
[2023-01-19] MEDS: OMEPRAZOLE 20MG CAP PO SCH (20:22)
[2023-01-19] MEDS: DOCUSATE SODIUM 100MG CAPSULE PO SCH (20:22)
[2023-01-19] MEDS: CitaloPRAM (CeleXA) 10 MG TABLET PO SCH (20:22)
[2023-01-19] MEDS: PERCOCET 5MG/325MG TAB PO PRN (20:23)
[2023-01-19] MEDS: allopurinoL 300 MG TAB PO SCH (20:23)
[2023-01-19] MEDS: SIMVASTATIN 40 MG TAB PO SCH (20:27)
[2023-01-19] MEDS: SYMBICORT 160/4.5MCG INHALER 6GM INH SCH (21:14)
[2023-01-20] MEDS: PIPERACILLIN/TAZOBACTAM SOD 3.375 GM in D5W MINI-BAG PLUS 50 ML IV SCH ×5 (00:11→22:36)
[2023-01-20] MEDS: VANCOMYCIN HCL 1,000 MG, VIAL MATE ADAPTER 1 EACH in D5W 250 ML IV SCH ×2 (01:15→12:38)
[2023-01-20] MEDS ORDERED: VANCOMYCIN HCL 750 MG, VIAL MATE ADAPTER 1 EACH in D5W 250 ML IV SCH (02:00)
[2023-01-20 06:00] VITALS: BP 130/78; TEMP 97.7; O2SAT 92
[2023-01-20 06:26] LABS: HEMATOCRIT 33.9 % (42.0-52.0); HEMOGLOBIN 10.8 g/dl (13.5-17.5); MEAN CORPUSCULAR HEMOGLOBIN 30.3 pg (27.0-33.0); MEAN CORPUSCULAR HGB CONC 31.9 g/dl (32.0-36.5); MEAN CORPUSCULAR VOLUME 95.2 fl (80.0-96.0); PLATELET COUNT, AUTOMATED 107 10^3/uL (150-450); RED BLOOD COUNT 3.56 10^6/uL (4.30-6.10)
[2023-01-20 06:38] LABS: INR 1.95; PROTHROMBIN TIME 21.7 SECONDS (12.5-14.5)
[2023-01-20 06:39] LABS: PARTIAL THROMBOPLASTIN TIME 42.8 SECONDS (24.8-34.2)
[2023-01-20 06:49] LABS: ALBUMIN 2.9 G/DL (3.2-5.2); ALKALINE PHOSPHATASE 179 U/L (46-116); ALT/SGPT 22 U/L (7.0-40); AST/SGOT 53 U/L (<34); BILIRUBIN,TOTAL 1.4 MG/DL (0.3-1.2); BLOOD UREA NITROGEN 18 MG/DL (9-23); CALCIUM LEVEL 8.4 MG/DL (8.3-10.6); CARBON DIOXIDE LEVEL 28 MMOL/L (20-31); CHLORIDE LEVEL 105 MMOL/L (98-107); GLOMERULAR FILTRATION RATE > 60.0 (>49); GLUCOSE, FASTING 89 MG/DL (74-106); POTASSIUM SERUM 3.8 MMOL/L (3.5-5.1); SODIUM LEVEL 139 MMOL/L (136-145); TOTAL PROTEIN 6.5 G/DL (5.7-8.2)
[2023-01-20] MEDS: SYMBICORT 160/4.5MCG INHALER 6GM INH SCH ×2 (07:22→19:45)
[2023-01-20] MEDS: INSULIN LISPRO (NovoLOG) PER UNIT SC SCH ×4 (07:30→19:50)
[2023-01-20] MEDS: OMEPRAZOLE 20MG CAP PO SCH ×2 (08:48→20:32)
[2023-01-20] MEDS: MULTIVITAMINS/MINERALS THERAP 1 TAB PO SCH (08:48)
[2023-01-20] MEDS: DOCUSATE SODIUM 100MG CAPSULE PO SCH ×2 (08:48→20:32)
[2023-01-20] MEDS: PERCOCET 5MG/325MG TAB PO PRN ×3 (08:49→20:34)
[2023-01-20] MEDS: METAMUCIL (PSYLLIUM) PACKET PO SCH (08:49)
[2023-01-20] MEDS ORDERED: VANCOMYCIN HCL 500 MG in D5W MINI-BAG PLUS 100 ML IV ONE (14:00)
[2023-01-20 14:40] VITALS: BP 128/76; TEMP 98; O2SAT 93
[2023-01-20] MEDS: WARFARIN SOD 2.5MG TAB PO SCH (17:48)
[2023-01-20 19:38] VITALS: BP 127/75; TEMP 98.2; O2SAT 96
[2023-01-20] MEDS: MELOXICAM (MOBIC) 7.5 MG TAB PO SCH (20:32)
[2023-01-20] MEDS: CitaloPRAM (CeleXA) 10 MG TABLET PO SCH (20:32)
[2023-01-20] MEDS: allopurinoL 300 MG TAB PO SCH (20:32)
[2023-01-20] MEDS: SIMVASTATIN 40 MG TAB PO SCH (20:32)
[2023-01-20] MEDS: ASPIRIN 81MG CHEW TABLET PO SCH (20:33)
[2023-01-21] MEDS ORDERED: VANCOMYCIN HCL 750 MG, VIAL MATE ADAPTER 1 EACH in D5W 250 ML IV SCH ×2 (01:00→02:00)
[2023-01-21] MEDS: PIPERACILLIN/TAZOBACTAM SOD 3.375 GM in D5W MINI-BAG PLUS 50 ML IV SCH ×4 (05:11→23:48)
[2023-01-21 06:00] VITALS: BP 132/75; TEMP 98.1; O2SAT 96
[2023-01-21 06:25] LABS: HEMATOCRIT 36.2 % (42.0-52.0); HEMOGLOBIN 11.2 g/dl (13.5-17.5); MEAN CORPUSCULAR HEMOGLOBIN 29.9 pg (27.0-33.0); MEAN CORPUSCULAR HGB CONC 30.9 g/dl (32.0-36.5); MEAN CORPUSCULAR VOLUME 96.8 fl (80.0-96.0); PLATELET COUNT, AUTOMATED 122 10^3/uL (150-450); RED BLOOD COUNT 3.74 10^6/uL (4.30-6.10); WHITE BLOOD COUNT 5.2 10^3/uL (4.0-10.0)
[2023-01-21 06:32] LABS: INR 1.96; PROTHROMBIN TIME 21.9 SECONDS (12.5-14.5)
[2023-01-21 06:33] LABS: PARTIAL THROMBOPLASTIN TIME 38.5 SECONDS (24.8-34.2)
[2023-01-21 06:51] LABS: ALBUMIN 3.1 G/DL (3.2-5.2); ALKALINE PHOSPHATASE 196 U/L (46-116); ALT/SGPT 24 U/L (7.0-40); AST/SGOT 57 U/L (<34); BILIRUBIN,TOTAL 0.8 MG/DL (0.3-1.2); BLOOD UREA NITROGEN 21 MG/DL (9-23); CARBON DIOXIDE LEVEL 28 MMOL/L (20-31); CHLORIDE LEVEL 105 MMOL/L (98-107); CREATININE FOR GFR 1.24 MG/DL (0.70-1.30); GLOMERULAR FILTRATION RATE > 60.0 (>49); GLUCOSE, FASTING 98 MG/DL (74-106); SODIUM LEVEL 138 MMOL/L (136-145)
[2023-01-21 06:59] LABS: ERYTHROCYTE SEDIMENTATION RATE 71 mm/hr (0-20)
[2023-01-21] MEDS: INSULIN LISPRO (NovoLOG) PER UNIT SC SCH ×4 (07:30→21:00)
[2023-01-21] MEDS: SYMBICORT 160/4.5MCG INHALER 6GM INH SCH ×2 (08:22→20:36)
[2023-01-21] MEDS: METAMUCIL (PSYLLIUM) PACKET PO SCH (09:00)
[2023-01-21] MEDS: OMEPRAZOLE 20MG CAP PO SCH ×2 (09:14→21:07)
[2023-01-21] MEDS: MULTIVITAMINS/MINERALS THERAP 1 TAB PO SCH (09:14)
[2023-01-21] MEDS: DOCUSATE SODIUM 100MG CAPSULE PO SCH ×2 (09:14→21:08)
[2023-01-21 14:22] VITALS: BP 113/77; TEMP 98.6; O2SAT 96
[2023-01-21] MEDS: WARFARIN SOD 2.5MG TAB PO SCH (17:35)
[2023-01-21] MEDS: CitaloPRAM (CeleXA) 10 MG TABLET PO SCH (21:07)
[2023-01-21] MEDS: ASPIRIN 81MG CHEW TABLET PO SCH (21:08)
[2023-01-21] MEDS: allopurinoL 300 MG TAB PO SCH (21:08)
[2023-01-21] MEDS: SIMVASTATIN 40 MG TAB PO SCH (21:08)
[2023-01-21] MEDS: MELOXICAM (MOBIC) 7.5 MG TAB PO SCH (21:08)
[2023-01-21] MEDS: PERCOCET 5MG/325MG TAB PO PRN (21:09)
[2023-01-21 22:00] VITALS: BP 120/70; TEMP 98.4; O2SAT 98
[2023-01-22] MEDS: PIPERACILLIN/TAZOBACTAM SOD 3.375 GM in D5W MINI-BAG PLUS 50 ML IV SCH (05:13)
[2023-01-22 06:00] VITALS: BP 119/68; TEMP 98.6; O2SAT 94
[2023-01-22 06:08] LABS: HEMOGLOBIN 10.6 g/dl (13.5-17.5); MEAN CORPUSCULAR HEMOGLOBIN 30.1 pg (27.0-33.0); MEAN CORPUSCULAR HGB CONC 31.2 g/dl (32.0-36.5); MEAN CORPUSCULAR VOLUME 96.6 fl (80.0-96.0); PLATELET COUNT, AUTOMATED 123 10^3/uL (150-450); RED BLOOD COUNT 3.52 10^6/uL (4.30-6.10); WHITE BLOOD COUNT 5.5 10^3/uL (4.0-10.0)
[2023-01-22 06:19] LABS: INR 2.09; PARTIAL THROMBOPLASTIN TIME 37.2 SECONDS (24.8-34.2); PROTHROMBIN TIME 22.9 SECONDS (12.5-14.5)
[2023-01-22 06:30] LABS: ALBUMIN 2.9 G/DL (3.2-5.2); ALKALINE PHOSPHATASE 218 U/L (46-116); ALT/SGPT 26 U/L (7.0-40); AST/SGOT 65 U/L (<34); BILIRUBIN,TOTAL 0.6 MG/DL (0.3-1.2); BLOOD UREA NITROGEN 25 MG/DL (9-23); CALCIUM LEVEL 8.9 MG/DL (8.3-10.6); CARBON DIOXIDE LEVEL 29 MMOL/L (20-31); CHLORIDE LEVEL 106 MMOL/L (98-107); CREATININE FOR GFR 1.28 MG/DL (0.70-1.30); GLOMERULAR FILTRATION RATE > 60.0 (>49); GLUCOSE, FASTING 100 MG/DL (74-106); POTASSIUM SERUM 4.1 MMOL/L (3.5-5.1); SODIUM LEVEL 140 MMOL/L (136-145); TOTAL PROTEIN 6.7 G/DL (5.7-8.2)
[2023-01-22 06:52] LABS: ERYTHROCYTE SEDIMENTATION RATE 61 mm/hr (0-20)
[2023-01-22] MEDS: INSULIN LISPRO (NovoLOG) PER UNIT SC SCH (07:30)
[2023-01-22] MEDS: SYMBICORT 160/4.5MCG INHALER 6GM INH SCH (07:52)
[2023-01-22] MEDS: MULTIVITAMINS/MINERALS THERAP 1 TAB PO SCH (08:16)
[2023-01-22] MEDS: OMEPRAZOLE 20MG CAP PO SCH (08:16)
[2023-01-22] MEDS: DOCUSATE SODIUM 100MG CAPSULE PO SCH (08:16)
[2023-01-22] MEDS: METAMUCIL (PSYLLIUM) PACKET PO SCH (08:16)
[2023-01-22] MEDS ORDERED: CEPH500C PO (10:06)
[2023-01-22] MEDS ORDERED: PROB250C PO (10:06)
[2023-01-23] MEDS ORDERED: WARFARIN SOD 5MG TAB PO SCH (17:00)
== END 2023-01-22 11:00 | disposition home or self-care (01) | DRG 603 ==
LOC: M ED 11:41 → M ED INP 16:20 → M MS5PR 19:39
PROVIDERS: ADMIT Internal Medicine; ATTEND Internal Medicine
DX: L03.115 Cellulitis of right lower limb (principal); J45.909 Unspecified asthma, uncomplicated; K21.9 Gastro-esophageal reflux disease without esophagitis; E11.22 Type 2 diabetes mellitus with diabetic chronic kidney disease; N18.30 Chronic kidney disease, stage 3 unspecified; Z79.01 Long term (current) use of anticoagulants; Z85.47 Personal history of malignant neoplasm of testis; Z86.711 Personal history of pulmonary embolism; Z86.718 Personal history of other venous thrombosis and embolism; Z79.82 Long term (current) use of aspirin; Z79.899 Other long term (current) drug therapy; I89.0 Lymphedema, not elsewhere classified

== ENCOUNTER 2023-03-24 09:12 | Outpatient (RCR) | payer OTHER ==
[~2023-03-24 09:12] MED LIST changes: +ACET-683 PO; +CEPH500C PO; +META0.52 PO; +PROB250C PO; +VITA30004 PO
== END 2023-03-28 ==
LOC: M PT 09:12
PROVIDERS: ATTEND Physician Assistant
DX: I89.0 Lymphedema, not elsewhere classified (principal)

== ENCOUNTER → 2023-03-30 | Outpatient (CLI) | payer OTHER | LOC: M SOG 12:45 | PROVIDERS: ATTEND Physician Assistant | DX: M25.511 Pain in right shoulder (principal); M25.512 Pain in left shoulder; M79.641 Pain in right hand; M79.642 Pain in left hand; M75.102 Unspecified rotator cuff tear or rupture of left shoulder, not specified as traumatic ==

== ENCOUNTER → 2023-04-05 | Outpatient (REF) | payer OTHER ==
[2023-04-05 18:48] LABS: PROTHROMBIN TIME 64.5 SECONDS (12.5-14.5)
[2023-04-05 20:58] LABS: INR 8.1
== END ==
LOC: M SFHCADAM 15:24
PROVIDERS: ATTEND Physician Assistant Medical
DX: Z86.718 Personal history of other venous thrombosis and embolism (principal); Z79.01 Long term (current) use of anticoagulants

== ENCOUNTER → 2023-04-07 | Outpatient (CLI) | payer OTHER ==
[2023-04-07 09:22] LABS: INR 1.96; PROTHROMBIN TIME 21.6 SECONDS (12.5-14.5)
== END ==
LOC: M LAB 08:32
PROVIDERS: ATTEND Physician Assistant Medical
DX: Z86.718 Personal history of other venous thrombosis and embolism (principal)

== ENCOUNTER 2023-04-23 09:46 | Inpatient (IN) | payer OTHER ==
[2023-04-23] VITALS (12 sets, daily range): BP systolic 102–107; BP diastolic 54–63; TEMP 97.3–97.6; O2SAT 83–98
[~2023-04-23] VITALS: Ht 185.4 cm; Wt 141.7 kg
[2023-04-23] MEDS ORDERED: ONDANSETRON 4MG 2ML VIAL IV ONE (10:25)
[2023-04-23] MEDS ORDERED: PANTOPRAZOLE 40MG VIAL IV ONE (10:25)
[2023-04-23] MEDS ORDERED: NS 1,000 ML IV ONE ×3 (10:25→18:15)
[2023-04-23] MEDS ORDERED: ALBUTEROL SULFATE 2.5MG/0.5ML INH NEB SOLN NEB PRN (10:25)
[2023-04-23 10:29] LABS: BASO # 0.1 10^3/uL (0.0-0.2); BASO % 0.7 % (0.0-1.0); EOS # 0.1 10^3/uL (0.0-0.5); EOS % 1.3 % (0.0-3.0); HEMATOCRIT 30.7 % (42.0-52.0); HEMOGLOBIN 9.6 g/dl (13.5-17.5); LYMPH # 1.3 10^3/uL (1.5-5.0); LYMPH % 19.4 % (24.0-44.0); MEAN CORPUSCULAR HEMOGLOBIN 30.5 pg (27.0-33.0); MEAN CORPUSCULAR HGB CONC 31.3 g/dl (32.0-36.5); MEAN CORPUSCULAR VOLUME 97.5 fl (80.0-96.0); MONO # 0.8 10^3/uL (0.0-0.8); NEUTROPHILS # 4.6 10^3/uL (1.5-8.5); NEUTROPHILS % 67.2 % (36.0-66.0); PLATELET COUNT, AUTOMATED 143 10^3/uL (150-450); RED BLOOD COUNT 3.15 10^6/uL (4.30-6.10); WHITE BLOOD COUNT 6.9 10^3/uL (4.0-10.0)
[2023-04-23 10:42] LABS: INR 4.07; PARTIAL THROMBOPLASTIN TIME 40.4 SECONDS (24.8-34.2)
[2023-04-23] MEDS ORDERED: PROTHROMBIN COMPLEX CONCEN 1,000 UNIT in APPROPRIATE DILUENT 40 ML IV ONE (10:50)
[2023-04-23] MEDS ORDERED: HALOPERIDOL 5MG/ML 1ML VIAL IV ONE (11:00)
[2023-04-23] MEDS ORDERED: PHYTONADIONE 10MG/ML 1ML INJECTION SC ONE (11:00)
[2023-04-23 11:14] LABS: RSV AMPLIFICATION NEGATIVE (NEGATIVE)
[2023-04-23 11:26] LABS: CK-MB VALUE MASS 1.3 NG/ML (<3.6)
[2023-04-23 11:27] LABS: ETHYL ALCOHOL (ETHANOL) < 0.003 % (0.000-0.010)
[2023-04-23 11:28] LABS: CPK CREATINE PHOSPHOKINASE 215 U/L (46-171)
[2023-04-23 11:29] LABS: ALBUMIN 2.7 G/DL (3.2-5.2); ALKALINE PHOSPHATASE 399 U/L (46-116); ALT/SGPT 49 U/L (7.0-40); AST/SGOT 182 U/L (<34); BILIRUBIN,DIRECT 0.5 MG/DL (<0.4); BILIRUBIN,TOTAL 0.9 MG/DL (0.3-1.2); BLOOD UREA NITROGEN 44 MG/DL (9-23); CALCIUM LEVEL 9.2 MG/DL (8.3-10.6); CARBON DIOXIDE LEVEL 25 MMOL/L (20-31); CHLORIDE LEVEL 107 MMOL/L (98-107); GLOMERULAR FILTRATION RATE > 60.0 (>49); GLUCOSE, FASTING 116 MG/DL (74-106); POTASSIUM SERUM 5.3 MMOL/L (3.5-5.1); SODIUM LEVEL 143 MMOL/L (136-145); TOTAL PROTEIN 6.2 G/DL (5.7-8.2)
[2023-04-23] MEDS ORDERED: ISOVUE-370 76% 100ML VIAL As Ordered ONE (12:13)
[2023-04-23] MEDS ORDERED: MED REC IN PROGRESS XX SCH (12:35)
[2023-04-23] MEDS ORDERED: HOME MED LIST COMPLETE! XX SCH (12:55)
[2023-04-23] MEDS ORDERED: ALBUTEROL 90 MCG/ACT 8GM HFA INHALER INH PRN (14:45)
[2023-04-23] MEDS ORDERED: ONDANSETRON 4MG 2ML VIAL IV PRN (15:10)
[2023-04-23] MEDS: NS 1,000 ML IV SCH ×2 (15:24→19:55)
[2023-04-23] MEDS: MULTIVITAMINS/MINERALS THERAP 1 TAB PO SCH (15:24)
[2023-04-23 17:14] LABS: HEMATOCRIT 27.4 % (42.0-52.0); HEMOGLOBIN 8.8 g/dl (13.5-17.5); MEAN CORPUSCULAR HEMOGLOBIN 31.1 pg (27.0-33.0); MEAN CORPUSCULAR HGB CONC 32.1 g/dl (32.0-36.5); MEAN CORPUSCULAR VOLUME 96.8 fl (80.0-96.0); PLATELET COUNT, AUTOMATED 129 10^3/uL (150-450); RED BLOOD COUNT 2.83 10^6/uL (4.30-6.10); WHITE BLOOD COUNT 9.9 10^3/uL (4.0-10.0)
[2023-04-23 17:18] LABS: INR 2.16; PROTHROMBIN TIME 23.3 SECONDS (12.5-14.5)
[2023-04-23] MEDS ORDERED: PHYTONADIONE 1MG/0.5ML SYRINGE SQ ONE (17:30)
[2023-04-23] MEDS ORDERED: OCTREOTIDE ACETATE 100MCG/ML VIAL **IV ADMINISTRATION ONLY IV ONE (19:20)
[2023-04-23] MEDS: cefTRIAXone SOD 1 GM in D5W MINI-BAG PLUS 50 ML IV SCH (19:55)
[2023-04-23] MEDS: SUCRALFATE SUSP 1GM/10ML UD PO SCH ×2 (19:55→23:44)
[2023-04-23] MEDS: SIMVASTATIN 40 MG TAB PO SCH (20:23)
[2023-04-23] MEDS: OCTREOTIDE ACETATE 1,200 MCG in NS 238.8 ML IV SCH (20:23)
[2023-04-23] MEDS: allopurinoL 300 MG TAB PO SCH (20:23)
[2023-04-23] MEDS: PANTOPRAZOLE 40MG VIAL IV SCH (20:23)
[2023-04-23] MEDS: SYMBICORT 160/4.5MCG INHALER 6GM INH SCH (20:38)
[2023-04-23] MEDS ORDERED: ALBUTEROL SULFATE 2.5MG/0.5ML INH NEB SOLN INH PRN (21:30)
[2023-04-23 22:17] LABS: HEMATOCRIT 27.1 % (42.0-52.0); HEMOGLOBIN 8.6 g/dl (13.5-17.5); MEAN CORPUSCULAR HEMOGLOBIN 30.9 pg (27.0-33.0); MEAN CORPUSCULAR HGB CONC 31.7 g/dl (32.0-36.5); MEAN CORPUSCULAR VOLUME 97.5 fl (80.0-96.0); PLATELET COUNT, AUTOMATED 148 10^3/uL (150-450); RED BLOOD COUNT 2.78 10^6/uL (4.30-6.10); WHITE BLOOD COUNT 13.9 10^3/uL (4.0-10.0)
[2023-04-24] VITALS (24 sets, daily range): BP systolic 107–139; BP diastolic 57–73; TEMP 97.3–98.8; O2SAT 94–99
[2023-04-24] MEDS: NS 1,000 ML IV SCH ×2 (04:39→19:25)
[2023-04-24 05:04] LABS: HEMATOCRIT 22.9 % (42.0-52.0); HEMOGLOBIN 7.3 g/dl (13.5-17.5); MEAN CORPUSCULAR HEMOGLOBIN 31.1 pg (27.0-33.0); MEAN CORPUSCULAR HGB CONC 31.9 g/dl (32.0-36.5); MEAN CORPUSCULAR VOLUME 97.4 fl (80.0-96.0); PLATELET COUNT, AUTOMATED 113 10^3/uL (150-450); RED BLOOD COUNT 2.35 10^6/uL (4.30-6.10); WHITE BLOOD COUNT 9.3 10^3/uL (4.0-10.0)
[2023-04-24] MEDS: SUCRALFATE SUSP 1GM/10ML UD PO SCH ×4 (05:12→23:35)
[2023-04-24 05:16] LABS: INR 1.67; PROTHROMBIN TIME 19.1 SECONDS (12.5-14.5)
[2023-04-24] MEDS ORDERED: NS 1,000 ML IV SCH (05:35)
[2023-04-24 05:39] LABS: ALBUMIN 2.3 G/DL (3.2-5.2); ALKALINE PHOSPHATASE 294 U/L (46-116); ALT/SGPT 41 U/L (7.0-40); AST/SGOT 167 U/L (<34); BILIRUBIN,TOTAL 1.4 MG/DL (0.3-1.2); BLOOD UREA NITROGEN 44 MG/DL (9-23); CALCIUM LEVEL 8.4 MG/DL (8.3-10.6); CARBON DIOXIDE LEVEL 23 MMOL/L (20-31); CHLORIDE LEVEL 108 MMOL/L (98-107); CREATININE FOR GFR 1.14 MG/DL (0.70-1.30); GLOMERULAR FILTRATION RATE > 60.0 (>49); GLUCOSE, FASTING 95 MG/DL (74-106); POTASSIUM SERUM 4.8 MMOL/L (3.5-5.1); SODIUM LEVEL 141 MMOL/L (136-145); TOTAL PROTEIN 5.2 G/DL (5.7-8.2)
[2023-04-24] MEDS: SYMBICORT 160/4.5MCG INHALER 6GM INH SCH ×2 (07:56→21:12)
[2023-04-24] MEDS ORDERED: PROTHROMBIN COMPLEX CONCEN IV ONE (08:30)
[2023-04-24] MEDS ORDERED: DILUENT IV ONE (08:30)
[2023-04-24] MEDS: MULTIVITAMINS/MINERALS THERAP 1 TAB PO SCH (08:37)
[2023-04-24 09:48] LABS: HEMATOCRIT 26.7 % (42.0-52.0); HEMOGLOBIN 8.4 g/dl (13.5-17.5); MEAN CORPUSCULAR HGB CONC 31.5 g/dl (32.0-36.5); MEAN CORPUSCULAR VOLUME 95.4 fl (80.0-96.0); PLATELET COUNT, AUTOMATED 126 10^3/uL (150-450); WHITE BLOOD COUNT 9.6 10^3/uL (4.0-10.0)
[2023-04-24 10:01] LABS: INR 1.35; PROTHROMBIN TIME 16.2 SECONDS (12.5-14.5)
[2023-04-24] MEDS: PANTOPRAZOLE 40MG VIAL IV SCH ×2 (11:27→20:07)
[2023-04-24 15:17] LABS: HEMATOCRIT 26.6 % (42.0-52.0); HEMOGLOBIN 8.4 g/dl (13.5-17.5); MEAN CORPUSCULAR HEMOGLOBIN 30.4 pg (27.0-33.0); MEAN CORPUSCULAR HGB CONC 31.6 g/dl (32.0-36.5); MEAN CORPUSCULAR VOLUME 96.4 fl (80.0-96.0); PLATELET COUNT, AUTOMATED 137 10^3/uL (150-450); RED BLOOD COUNT 2.76 10^6/uL (4.30-6.10); WHITE BLOOD COUNT 10.7 10^3/uL (4.0-10.0)
[2023-04-24 15:40] LABS: INR 1.34; PROTHROMBIN TIME 16.1 SECONDS (12.5-14.5)
[2023-04-24] MEDS ORDERED: ROCURONIUM BROMIDE 50MG/5ML VIAL As Ordered ONE (15:43)
[2023-04-24] MEDS ORDERED: SUGAMMADEX SODIUM 500 MG/5 ML VIAL (BRIDION) As Ordered ONE (15:43)
[2023-04-24] MEDS ORDERED: SUCCINYLCHOLINE 100MG/5ML SYRINGE As Ordered ONE (15:43)
[2023-04-24] MEDS ORDERED: ONDANSETRON 4MG 2ML VIAL As Ordered ONE (15:43)
[2023-04-24] MEDS ORDERED: LIDOCAINE 2% 100MG/5ML SDV (FOR ANES.) As Ordered ONE (15:43)
[2023-04-24] MEDS ORDERED: propofoL 200 MG/20 ML VIAL As Ordered ONE (15:43)
[2023-04-24] MEDS ORDERED: fentaNYL 100 MCG/2 ML INJECTION As Ordered ONE (15:50)
[2023-04-24] MEDS: OCTREOTIDE ACETATE 1,200 MCG in NS 238.8 ML IV SCH (19:25)
[2023-04-24] MEDS: cefTRIAXone SOD 1 GM in D5W MINI-BAG PLUS 50 ML IV SCH (20:07)
[2023-04-24] MEDS: SIMVASTATIN 40 MG TAB PO SCH (20:07)
[2023-04-24] MEDS: allopurinoL 300 MG TAB PO SCH (20:07)
[2023-04-24] MEDS: ACETAMINOPHEN 500 MG TAB PO PRN (20:14)
[2023-04-24 21:23] LABS: HEMATOCRIT 24.5 % (42.0-52.0); HEMOGLOBIN 7.9 g/dl (13.5-17.5); MEAN CORPUSCULAR HEMOGLOBIN 30.9 pg (27.0-33.0); MEAN CORPUSCULAR HGB CONC 32.2 g/dl (32.0-36.5); MEAN CORPUSCULAR VOLUME 95.7 fl (80.0-96.0); PLATELET COUNT, AUTOMATED 127 10^3/uL (150-450); RED BLOOD COUNT 2.56 10^6/uL (4.30-6.10); WHITE BLOOD COUNT 9.7 10^3/uL (4.0-10.0)
[2023-04-24 21:36] LABS: INR 1.41; PROTHROMBIN TIME 16.8 SECONDS (12.5-14.5)
[2023-04-25] VITALS (34 sets, daily range): BP systolic 112–151; BP diastolic 58–76; TEMP 97.6–98.5; O2SAT 90–97
[2023-04-25] MEDS: NS 1,000 ML IV SCH (03:09)
[2023-04-25 03:49] LABS: HEMOGLOBIN 7.6 g/dl (13.5-17.5)
[2023-04-25 04:04] LABS: INR 1.33
[2023-04-25 04:09] LABS: TOTAL IRON BINDING CAPACITY 353 UG/DL (250-425)
[2023-04-25 04:10] LABS: IRON (FE) 63 UG/DL (65-175); PERCENT SATURATION 17.8 % (19.7-50.0)
[2023-04-25 05:16] LABS: HEPATITIS C VIRUS ABY INDEX 0.03 INDEX (<0.8)
[2023-04-25 05:17] LABS: HEPATITIS B CORE ANTIBODY IGM NEGATIVE (NEGATIVE)
[2023-04-25 05:22] LABS: ALBUMIN 2.5 G/DL (3.2-5.2); ALKALINE PHOSPHATASE 275 U/L (46-116); ALT/SGPT 37 U/L (7.0-40); AST/SGOT 203 U/L (<34); BILIRUBIN,TOTAL 1.1 MG/DL (0.3-1.2); BLOOD UREA NITROGEN 41 MG/DL (9-23); CALCIUM LEVEL 8.2 MG/DL (8.3-10.6); CARBON DIOXIDE LEVEL 24 MMOL/L (20-31); CHLORIDE LEVEL 106 MMOL/L (98-107); CREATININE FOR GFR 1.21 MG/DL (0.70-1.30); GLOMERULAR FILTRATION RATE > 60.0 (>49); GLUCOSE, FASTING 121 MG/DL (74-106); POTASSIUM SERUM 4.6 MMOL/L (3.5-5.1); SODIUM LEVEL 137 MMOL/L (136-145); TOTAL PROTEIN 5.5 G/DL (5.7-8.2)
[2023-04-25] MEDS: SUCRALFATE SUSP 1GM/10ML UD PO SCH ×3 (05:34→18:01)
[2023-04-25] MEDS: SYMBICORT 160/4.5MCG INHALER 6GM INH SCH ×2 (07:57→20:00)
[2023-04-25] MEDS ORDERED: INFLUENZA QUADRIVALENT PF VACCINE 0.5ML SYRINGE IM.IMMUN ONE (09:00)
[2023-04-25] MEDS: PANTOPRAZOLE 40MG VIAL IV SCH ×2 (09:53→20:19)
[2023-04-25] MEDS: MULTIVITAMINS/MINERALS THERAP 1 TAB PO SCH (09:53)
[2023-04-25 10:00] LABS: INR 1.32
[2023-04-25] MEDS: ACETAMINOPHEN 500 MG TAB PO PRN (10:51)
[2023-04-25] MEDS: OCTREOTIDE ACETATE 1,200 MCG in NS 238.8 ML IV SCH (18:01)
[2023-04-25 18:42] LABS: HEMATOCRIT 30.9 % (42.0-52.0); MEAN CORPUSCULAR HEMOGLOBIN 29.8 pg (27.0-33.0); MEAN CORPUSCULAR HGB CONC 31.4 g/dl (32.0-36.5); MEAN CORPUSCULAR VOLUME 95.1 fl (80.0-96.0); PLATELET COUNT, AUTOMATED 143 10^3/uL (150-450); RED BLOOD COUNT 3.25 10^6/uL (4.30-6.10); WHITE BLOOD COUNT 12.6 10^3/uL (4.0-10.0)
[2023-04-25 18:46] LABS: HEMOGLOBIN 9.7 g/dl (13.5-17.5)
[2023-04-25] MEDS: allopurinoL 300 MG TAB PO SCH (20:19)
[2023-04-25] MEDS: SIMVASTATIN 40 MG TAB PO SCH (20:19)
[2023-04-25] MEDS: cefTRIAXone SOD 1 GM in D5W MINI-BAG PLUS 50 ML IV SCH (20:20)
[2023-04-26] VITALS (24 sets, daily range): BP systolic 106–137; BP diastolic 56–74; TEMP 97.9–98.6; O2SAT 81–97
[2023-04-26] MEDS: SUCRALFATE SUSP 1GM/10ML UD PO SCH ×4 (00:18→17:34)
[2023-04-26 05:32] LABS: HEMATOCRIT 26.3 % (42.0-52.0); HEMOGLOBIN 8.3 g/dl (13.5-17.5); MEAN CORPUSCULAR HEMOGLOBIN 29.7 pg (27.0-33.0); MEAN CORPUSCULAR HGB CONC 31.6 g/dl (32.0-36.5); MEAN CORPUSCULAR VOLUME 94.3 fl (80.0-96.0); PLATELET COUNT, AUTOMATED 105 10^3/uL (150-450); RED BLOOD COUNT 2.79 10^6/uL (4.30-6.10); WHITE BLOOD COUNT 9.2 10^3/uL (4.0-10.0)
[2023-04-26 05:40] LABS: INR 1.35; PROTHROMBIN TIME 16.2 SECONDS (12.5-14.5)
[2023-04-26 05:56] LABS: ALBUMIN 2.4 G/DL (3.2-5.2); ALKALINE PHOSPHATASE 270 U/L (46-116); ALT/SGPT 35 U/L (7.0-40); AST/SGOT 204 U/L (<34); BILIRUBIN,TOTAL 1.2 MG/DL (0.3-1.2); BLOOD UREA NITROGEN 33 MG/DL (9-23); CALCIUM LEVEL 8.1 MG/DL (8.3-10.6); CARBON DIOXIDE LEVEL 26 MMOL/L (20-31); CHLORIDE LEVEL 106 MMOL/L (98-107); CREATININE FOR GFR 1.17 MG/DL (0.70-1.30); GLOMERULAR FILTRATION RATE > 60.0 (>49); GLUCOSE, FASTING 96 MG/DL (74-106); POTASSIUM SERUM 4.2 MMOL/L (3.5-5.1); SODIUM LEVEL 139 MMOL/L (136-145); TOTAL PROTEIN 5.4 G/DL (5.7-8.2)
[2023-04-26] MEDS: SYMBICORT 160/4.5MCG INHALER 6GM INH SCH ×2 (07:47→21:18)
[2023-04-26] MEDS: MULTIVITAMINS/MINERALS THERAP 1 TAB PO SCH (08:31)
[2023-04-26] MEDS: PANTOPRAZOLE 40MG VIAL IV SCH ×2 (08:31→21:12)
[2023-04-26] MEDS: OCTREOTIDE ACETATE 1,200 MCG in NS 238.8 ML IV SCH (17:34)
[2023-04-26 18:22] LABS: HEMATOCRIT 30.2 % (42.0-52.0); HEMOGLOBIN 9.8 g/dl (13.5-17.5); MEAN CORPUSCULAR HEMOGLOBIN 31.1 pg (27.0-33.0); MEAN CORPUSCULAR HGB CONC 32.5 g/dl (32.0-36.5); MEAN CORPUSCULAR VOLUME 95.9 fl (80.0-96.0); PLATELET COUNT, AUTOMATED 121 10^3/uL (150-450); RED BLOOD COUNT 3.15 10^6/uL (4.30-6.10); WHITE BLOOD COUNT 9.6 10^3/uL (4.0-10.0)
[2023-04-26] MEDS: cefTRIAXone SOD 1 GM in D5W MINI-BAG PLUS 50 ML IV SCH (21:12)
[2023-04-26] MEDS: SIMVASTATIN 40 MG TAB PO SCH (21:12)
[2023-04-26] MEDS: allopurinoL 300 MG TAB PO SCH (21:12)
[2023-04-26] MEDS: ACETAMINOPHEN 500 MG TAB PO PRN (21:15)
[2023-04-27] VITALS (8 sets, daily range): BP systolic 112–132; BP diastolic 58–82; PULSE 78; TEMP 97–98; O2SAT 93–97
[2023-04-27] MEDS: SUCRALFATE SUSP 1GM/10ML UD PO SCH ×2 (00:55→06:19)
[2023-04-27] MEDS: ACETAMINOPHEN 500 MG TAB PO PRN (03:25)
[2023-04-27] MEDS: SYMBICORT 160/4.5MCG INHALER 6GM INH SCH (07:25)
[2023-04-27 07:50] LABS: HEMATOCRIT 28.4 % (42.0-52.0); MEAN CORPUSCULAR HEMOGLOBIN 30.6 pg (27.0-33.0); MEAN CORPUSCULAR HGB CONC 31.7 g/dl (32.0-36.5); MEAN CORPUSCULAR VOLUME 96.6 fl (80.0-96.0); PLATELET COUNT, AUTOMATED 116 10^3/uL (150-450); RED BLOOD COUNT 2.94 10^6/uL (4.30-6.10); WHITE BLOOD COUNT 8.1 10^3/uL (4.0-10.0)
[2023-04-27 08:06] LABS: INR 1.23; PROTHROMBIN TIME 15.2 SECONDS (12.5-14.5)
[2023-04-27 08:21] LABS: ALBUMIN 2.5 G/DL (3.2-5.2); ALKALINE PHOSPHATASE 397 U/L (46-116); ALT/SGPT 36 U/L (7.0-40); AST/SGOT 210 U/L (<34); BILIRUBIN,TOTAL 0.8 MG/DL (0.3-1.2); BLOOD UREA NITROGEN 29 MG/DL (9-23); CALCIUM LEVEL 8.4 MG/DL (8.3-10.6); CARBON DIOXIDE LEVEL 27 MMOL/L (20-31); CHLORIDE LEVEL 106 MMOL/L (98-107); CREATININE FOR GFR 1.26 MG/DL (0.70-1.30); GLOMERULAR FILTRATION RATE > 60.0 (>49); GLUCOSE, FASTING 101 MG/DL (74-106); POTASSIUM SERUM 4.2 MMOL/L (3.5-5.1); SODIUM LEVEL 140 MMOL/L (136-145); TOTAL PROTEIN 5.7 G/DL (5.7-8.2)
[2023-04-27] MEDS: MULTIVITAMINS/MINERALS THERAP 1 TAB PO SCH (08:39)
[2023-04-27] MEDS: PANTOPRAZOLE 40MG VIAL IV SCH (08:39)
[2023-04-27] MEDS ORDERED: SUCR1TA PO (09:53)
[2023-04-27] MEDS ORDERED: PROT1TAB2 PO (09:53)
[2023-04-27 20:11] LABS: ANTI DOUBLE STRAND-DNA AB <1 IU/mL (0-9); ANTI-MITOCHONDRIAL ANTIBODY <20.0 Units (0.0-20.0); ANTINUCLEAR ANTIBODIES DIRECT Positive (Negative); LIVER-KIDNEY MICROSOMAL ABY <20.1 Units (0.0-20.0); RNP ANTIBODIES <0.2 AI (0.0-0.9); SJOGREN'S ANTI SS-A <0.2 AI (0.0-0.9); SJOGREN'S ANTI SS-B <0.2 AI (0.0-0.9); SMITH ANTIBODIES <0.2 AI (0.0-0.9); TISSUE TRANSGLUTAMINASE IgA <2 U/mL (0-3)
== END 2023-04-27 11:30 | disposition home or self-care (01) | DRG 432 ==
LOC: EDBD 09:46 → M ED 09:46 → M ED INP 14:41 → M PCU 16:18
PROVIDERS: ADMIT Family Medicine; ATTEND Family Medicine
PROC: 0W3P8ZZ Control Bleeding in Gastrointestinal Tract, Via Natural or Artificial Opening Endoscopic (ICD-10-PCS; 2023-04-24)
PROC: 0DJ08ZZ Inspection of Upper Intestinal Tract, Via Natural or Artificial Opening Endoscopic (ICD-10-PCS; 2023-04-24)
PROC: 06L38CZ Occlusion of Esophageal Vein with Extraluminal Device, Via Natural or Artificial Opening Endoscopic (ICD-10-PCS; principal; 2023-04-24 15:00)
DX: K74.60 Unspecified cirrhosis of liver (principal); I85.11 Secondary esophageal varices with bleeding; D62 Acute posthemorrhagic anemia; R18.8 Other ascites; E87.20 Acidosis, unspecified; K92.0 Hematemesis; J45.20 Mild intermittent asthma, uncomplicated; N18.31 Chronic kidney disease, stage 3a; K21.9 Gastro-esophageal reflux disease without esophagitis; E78.2 Mixed hyperlipidemia; M19.90 Unspecified osteoarthritis, unspecified site; Z79.01 Long term (current) use of anticoagulants; Z86.711 Personal history of pulmonary embolism; Z86.718 Personal history of other venous thrombosis and embolism; F32.A Depression, unspecified; G47.33 Obstructive sleep apnea (adult) (pediatric); Z79.899 Other long term (current) drug therapy; M10.9 Gout, unspecified; E66.01 Morbid (severe) obesity due to excess calories; Z92.21 Personal history of antineoplastic chemotherapy; I89.0 Lymphedema, not elsewhere classified; Z87.891 Personal history of nicotine dependence; K76.0 Fatty (change of) liver, not elsewhere classified; Z79.82 Long term (current) use of aspirin

== ENCOUNTER → 2023-05-11 | Outpatient (CLI) | payer MEDICARE, OTHER ==
[~2023-05-11] MED LIST changes: +PROT1TAB2 PO; +SUCR1TA PO
[2023-05-11 14:00] LABS: BASO # 0.1 10^3/uL (0.0-0.2); BASO % 0.9 % (0.0-1.0); EOS # 0.2 10^3/uL (0.0-0.5); EOS % 1.7 % (0.0-3.0); HEMATOCRIT 28.3 % (42.0-52.0); LYMPH # 1.7 10^3/uL (1.5-5.0); LYMPH % 18.8 % (24.0-44.0); MEAN CORPUSCULAR HEMOGLOBIN 31.4 pg (27.0-33.0); MEAN CORPUSCULAR HGB CONC 31.8 g/dl (32.0-36.5); MEAN CORPUSCULAR VOLUME 98.6 fl (80.0-96.0); MONO % 18.6 % (2.0-8.0); NEUTROPHILS # 5.3 10^3/uL (1.5-8.5); NEUTROPHILS % 59.3 % (36.0-66.0); PLATELET COUNT, AUTOMATED 144 10^3/uL (150-450); RED BLOOD COUNT 2.87 10^6/uL (4.30-6.10); WHITE BLOOD COUNT 8.9 10^3/uL (4.0-10.0)
[2023-05-11 14:13] LABS: INR 1.18; PROTHROMBIN TIME 14.7 SECONDS (12.5-14.5)
[2023-05-11 14:14] LABS: PARTIAL THROMBOPLASTIN TIME 27.8 SECONDS (24.8-34.2)
[2023-05-11 14:26] LABS: CREATININE,RANDOM URINE 238.3 MG/DL
[2023-05-11 14:38] LABS: MONO # 1.7 10^3/uL (0.0-0.8)
[2023-05-11 15:34] LABS: ALBUMIN 2.2 G/DL (3.2-5.2); ALKALINE PHOSPHATASE 876 U/L (46-116); ALT/SGPT 52 U/L (7.0-40); AST/SGOT 310 U/L (<34); BILIRUBIN,DIRECT 2.4 MG/DL (<0.4); BILIRUBIN,TOTAL 3.5 MG/DL (0.3-1.2); BLOOD UREA NITROGEN 35 MG/DL (9-23); CALCIUM LEVEL 9.9 MG/DL (8.3-10.6); CARBON DIOXIDE LEVEL 24 MMOL/L (20-31); CHLORIDE LEVEL 104 MMOL/L (98-107); CREATININE FOR GFR 1.15 MG/DL (0.70-1.30); GLOMERULAR FILTRATION RATE > 60.0 (>49); GLUCOSE, FASTING 97 MG/DL (74-106); POTASSIUM SERUM 4.6 MMOL/L (3.5-5.1); SODIUM LEVEL 138 MMOL/L (136-145); TOTAL PROTEIN 6.6 G/DL (5.7-8.2)
== END ==
LOC: M LAB 13:15
PROVIDERS: ATTEND Internal Medicine Gastroenterology
DX: K74.69 Other cirrhosis of liver (principal)

== ENCOUNTER → 2023-05-15 | Outpatient (CLI) | payer OTHER ==
[2023-05-15 10:05] VITALS: TEMP 99.1
[2023-05-15 11:45] LABS: ASCITES FL COLOR YELLOW (COLORLESS); SOURCE, BODY FLUID ASCITES
[2023-05-15 11:46] LABS: APPEARANCE, BODY FLUID CLEAR (CLEAR)
[2023-05-15 12:00] VITALS: BP 184/91; O2SAT 98
[2023-05-15 12:22] LABS: SOURCE, BODY FLUID ALBUMIN ASCITES
[2023-05-15 12:30] LABS: SOURCE, BODY FLUID TOT PROTEIN ASCITES; TOTAL PROTEIN, BODY FLUID < 2.0 G/DL (NOT ESTABLISHED)
== END ==
LOC: M IRPRO 09:48
PROVIDERS: ATTEND Internal Medicine Gastroenterology
DX: K74.69 Other cirrhosis of liver (principal)

== ENCOUNTER → 2023-05-18 | Outpatient (CLI) | payer OTHER | LOC: M RAD 08:52 | PROVIDERS: ATTEND Internal Medicine Gastroenterology | DX: K74.69 Other cirrhosis of liver (principal); R16.1 Splenomegaly, not elsewhere classified; I81 Portal vein thrombosis ==

== ENCOUNTER 2023-05-22 13:39 | Inpatient (IN) | payer OTHER ==
[~2023-05-22] VITALS: Ht 185.4 cm; Wt 140.7 kg
[2023-05-22] MEDS ORDERED: IPRATROPIUM 0.5MG/ALBUTEROL 2.5MG INH SOL UD 3ML (DUONEB) NEB ONE (13:55)
[2023-05-22] MEDS ORDERED: methylPREDNISolone 125MG 2ML VIAL IV ONE (13:55)
[2023-05-22] MEDS ORDERED: ALBUTEROL SULFATE 2.5MG/0.5ML INH NEB SOLN INH ONE (13:55)
[2023-05-22 14:23] LABS: BASO # 0.1 10^3/uL (0.0-0.2); BASO % 0.7 % (0.0-1.0); EOS # 0.1 10^3/uL (0.0-0.5); EOS % 0.7 % (0.0-3.0); HEMATOCRIT 33.5 % (42.0-52.0); HEMOGLOBIN 10.6 g/dl (13.5-17.5); LYMPH # 1.8 10^3/uL (1.5-5.0); LYMPH % 15.5 % (24.0-44.0); MEAN CORPUSCULAR HEMOGLOBIN 31.1 pg (27.0-33.0); MEAN CORPUSCULAR HGB CONC 31.6 g/dl (32.0-36.5); MEAN CORPUSCULAR VOLUME 98.2 fl (80.0-96.0); NEUTROPHILS # 8.1 10^3/uL (1.5-8.5); NEUTROPHILS % 68.5 % (36.0-66.0); RED BLOOD COUNT 3.41 10^6/uL (4.30-6.10); WHITE BLOOD COUNT 11.8 10^3/uL (4.0-10.0)
[2023-05-22] MEDS ORDERED: ISOVUE-370 76% 100ML VIAL As Ordered ONE (14:37)
[2023-05-22 14:43] LABS: LIPASE 83 U/L (12-53)
[2023-05-22 14:45] LABS: ALKALINE PHOSPHATASE 933 U/L (46-116); ALT/SGPT 41 U/L (7.0-40); AMYLASE 69 U/L (30-118); AST/SGOT 293 U/L (<34); BILIRUBIN,TOTAL 6.3 MG/DL (0.3-1.2); BLOOD UREA NITROGEN 41 MG/DL (9-23); CALCIUM LEVEL 10.6 MG/DL (8.3-10.6); CARBON DIOXIDE LEVEL 25 MMOL/L (20-31); CHLORIDE LEVEL 101 MMOL/L (98-107); CK-MB VALUE MASS 1.2 NG/ML (<3.6); GLOMERULAR FILTRATION RATE > 60.0 (>49); GLUCOSE, FASTING 75 MG/DL (74-106); POTASSIUM SERUM 5.6 MMOL/L (3.5-5.1); SODIUM LEVEL 134 MMOL/L (136-145); TOTAL PROTEIN 7.2 G/DL (5.7-8.2)
[2023-05-22 14:46] LABS: CPK CREATINE PHOSPHOKINASE 190 U/L (46-171); MB/CK RELATIVE INDEX 0.63 (< OR =4)
[2023-05-22 14:47] LABS: ABG BASE EXCESS 1.5 (-2.0-2.0); ABG HCO3 24.5 MMOL/L (22.0-26.0); ABG O2 SATURATION 95.3 % (95.0-99.0); ABG PARTIAL PRESSURE O2 72.4 mmHg (75.0-100.0); ABG STANDARD HCO3 25.8 MMOL/L. (22.0-26.0); ABG TOTAL CO2 25.5 MMOL/L (23.0-31.0); ABG pH (ARTERIAL) 7.489 UNITS (7.350-7.450)
[2023-05-22] MEDS ORDERED: MORPHINE 2 MG/ML 1ML VIAL IV ONE (14:50)
[2023-05-22] MEDS ORDERED: ONDANSETRON 4MG 2ML VIAL IV ONE (14:50)
[2023-05-22] MEDS ORDERED: PIPERACILLIN/TAZOBACTAM SOD 4.5 GM in D5W MINI-BAG PLUS 50 ML IV ONE (14:50)
[2023-05-22] MEDS ORDERED: NS 500 ML IV ONE (14:50)
[2023-05-22 14:57] LABS: MONO # 1.7 10^3/uL (0.0-0.8); PLATELET COUNT, AUTOMATED 138 10^3/uL (150-450)
[2023-05-22 16:23] LABS: CK-MB VALUE MASS 1.2 NG/ML (<3.6)
[2023-05-22 16:27] LABS: MB/CK RELATIVE INDEX 0.67 (< OR =4)
[2023-05-22] MEDS ORDERED: MED REC IN PROGRESS XX SCH (17:40)
[2023-05-22] MEDS ORDERED: CITA10TA7 PO (17:52)
[2023-05-22] MEDS ORDERED: FURO20TA2 PO (17:52)
[2023-05-22] MEDS ORDERED: SUCR1TAB56 PO (17:52)
[2023-05-22] MEDS ORDERED: DOCU100C16 PO (17:52)
[2023-05-22] MEDS ORDERED: HOME MED LIST COMPLETE! XX SCH (18:00)
[2023-05-22] MEDS ORDERED: ONDANSETRON 4MG 2ML VIAL IV PRN (18:15)
[2023-05-22 18:17] LABS: INR 1.34; PARTIAL THROMBOPLASTIN TIME 27.5 SECONDS (24.8-34.2); PROTHROMBIN TIME 16.1 SECONDS (12.5-14.5)
[2023-05-22] MEDS ORDERED: PATIROMER SORBITEX CALCIUM 8.4 GM POWDER PACKET (VELTASSA) PO ONE (20:00)
[2023-05-22] MEDS: ALBUTEROL SULFATE 2.5MG/0.5ML INH NEB SOLN NEB SCH (20:00)
[2023-05-22] MEDS: SYMBICORT 160/4.5MCG INHALER 6GM INH SCH (20:00)
[2023-05-22] MEDS: LACTULOSE 20GM/30ML SYRUP UDC PO SCH (20:01)
[2023-05-22] MEDS: NS 1,000 ML IV SCH (20:02)
[2023-05-22] MEDS: cefTRIAXone SOD 2 GM in D5W MINI-BAG PLUS 50 ML IV SCH (20:02)
[2023-05-22] MEDS ORDERED: NS 1,000 ML IV ONE (20:05)
[2023-05-22] MEDS ORDERED: SIMVASTATIN 40 MG TAB PO SCH (21:00)
[2023-05-22] MEDS ORDERED: HEPARIN SOD (PORCINE) 5000UNITS/ML 1ML VIAL/SYRINGE SC SCH (21:00)
[2023-05-22] MEDS: DOCUSATE SODIUM 100MG CAPSULE PO SCH (21:12)
[2023-05-22] MEDS: BISACODYL 10MG SUPP PR SCH (21:12)
[2023-05-22] MEDS: allopurinoL 300 MG TAB PO SCH (21:13)
[2023-05-22 22:15] VITALS: BP 129/61; TEMP 98.8; O2SAT 98
[2023-05-23] MEDS: LACTULOSE 20GM/30ML SYRUP UDC PO SCH ×5 (00:33→23:57)
[2023-05-23 00:55] LABS: CREATININE FOR GFR 1.33 MG/DL (0.70-1.30); GLOMERULAR FILTRATION RATE 57.6 (>49); POTASSIUM SERUM 4.8 MMOL/L (3.5-5.1)
[2023-05-23] MEDS: ENOXAPARIN 150MG/ML SYRINGE SC SCH ×3 (01:15→20:42)
[2023-05-23] MEDS: ALBUTEROL SULFATE 2.5MG/0.5ML INH NEB SOLN NEB SCH ×4 (02:24→19:23)
[2023-05-23] MEDS: RAMELTEON 8 MG TAB (ROZEREM) PO SCH ×2 (03:12→20:43)
[2023-05-23] MEDS: NS 1,000 ML IV SCH (04:40)
[2023-05-23 04:50] VITALS: BP 110/55; TEMP 98.1; O2SAT 90
[2023-05-23 04:51] LABS: BASO % 0.2 % (0.0-1.0); HEMATOCRIT 28.7 % (42.0-52.0); LYMPH # 0.7 10^3/uL (1.5-5.0); LYMPH % 5.7 % (24.0-44.0); MEAN CORPUSCULAR HGB CONC 31.4 g/dl (32.0-36.5); MONO % 8.7 % (2.0-8.0); NEUTROPHILS % 84.4 % (36.0-66.0); PLATELET COUNT, AUTOMATED 151 10^3/uL (150-450); WHITE BLOOD COUNT 11.8 10^3/uL (4.0-10.0)
[2023-05-23 05:24] LABS: ALBUMIN 1.8 G/DL (3.2-5.2); BILIRUBIN,DIRECT 3.4 MG/DL (<0.4); BILIRUBIN,TOTAL 4.7 MG/DL (0.3-1.2); CREATININE FOR GFR 1.4 MG/DL (0.70-1.30); GLOMERULAR FILTRATION RATE 54.3 (>49); POTASSIUM SERUM 4.8 MMOL/L (3.5-5.1); TOTAL PROTEIN 6.5 G/DL (5.7-8.2)
[2023-05-23] MEDS: DOCUSATE SODIUM 100MG CAPSULE PO SCH ×2 (08:21→20:43)
[2023-05-23] MEDS: SUCRALFATE 1 GM TAB PO SCH (08:21)
[2023-05-23] MEDS: MULTIVITAMINS/MINERALS THERAP 1 TAB PO SCH (08:21)
[2023-05-23] MEDS: BISACODYL 10MG SUPP PR SCH ×2 (08:23→20:43)
[2023-05-23] MEDS ORDERED: FUROSEMIDE 20 MG TAB PO SCH (09:00)
[2023-05-23] MEDS ORDERED: CitaloPRAM (CeleXA) 10 MG TABLET PO SCH (09:00)
[2023-05-23] MEDS: SYMBICORT 160/4.5MCG INHALER 6GM INH SCH ×2 (10:21→19:23)
[2023-05-23] MEDS ORDERED: MIDODRINE 5 MG TAB PO SCH (12:00)
[2023-05-23] MEDS: MIDODRINE 5 MG TAB PO SCH ×2 (13:08→15:03)
[2023-05-23 14:00] VITALS: BP 115/74; TEMP 98.4; O2SAT 96
[2023-05-23] MEDS ORDERED: metOLazone 2.5 MG TAB PO ONE (14:45)
[2023-05-23] MEDS ORDERED: FUROSEMIDE injection 250 MG in D5W 225 ML IV SCH (15:00)
[2023-05-23 18:00] VITALS: BP 117/72; TEMP 98.8; O2SAT 90
[2023-05-23] MEDS: cefTRIAXone SOD 2 GM in D5W MINI-BAG PLUS 50 ML IV SCH (20:42)
[2023-05-23] MEDS: allopurinoL 300 MG TAB PO SCH (20:43)
[2023-05-23 22:00] VITALS: BP 115/70; TEMP 98.6; O2SAT 91
[2023-05-23] MEDS: oxyCODONE 5MG TAB PO PRN (22:12)
[2023-05-24] VITALS (9 sets, daily range): BP systolic 109–127; BP diastolic 62–74; TEMP 97.4–98.9; O2SAT 91–96
[2023-05-24] MEDS: ALBUTEROL SULFATE 2.5MG/0.5ML INH NEB SOLN NEB SCH ×4 (01:06→19:04)
[2023-05-24] MEDS: oxyCODONE 5MG TAB PO PRN (04:13)
[2023-05-24 05:32] LABS: BASO % 0.3 % (0.0-1.0); EOS # 0.1 10^3/uL (0.0-0.5); EOS % 0.4 % (0.0-3.0); HEMATOCRIT 28.4 % (42.0-52.0); HEMOGLOBIN 8.8 g/dl (13.5-17.5); LYMPH # 2.1 10^3/uL (1.5-5.0); LYMPH % 15.1 % (24.0-44.0); MONO % 11.7 % (2.0-8.0); NEUTROPHILS # 10.1 10^3/uL (1.5-8.5); NEUTROPHILS % 71.7 % (36.0-66.0); PLATELET COUNT, AUTOMATED 161 10^3/uL (150-450); RED BLOOD COUNT 2.84 10^6/uL (4.30-6.10); WHITE BLOOD COUNT 14.1 10^3/uL (4.0-10.0)
[2023-05-24 05:33] LABS: MONO # 1.7 10^3/uL (0.0-0.8)
[2023-05-24] MEDS: LACTULOSE 20GM/30ML SYRUP UDC PO SCH ×3 (05:49→17:32)
[2023-05-24 06:02] LABS: CALCIUM LEVEL 9.8 MG/DL (8.3-10.6); CREATININE FOR GFR 1.64 MG/DL (0.70-1.30); GLOMERULAR FILTRATION RATE 45.3 (>49)
[2023-05-24] MEDS: ENOXAPARIN 150MG/ML SYRINGE SC SCH ×3 (07:27→19:53)
[2023-05-24] MEDS: DOCUSATE SODIUM 100MG CAPSULE PO SCH ×2 (07:27→19:53)
[2023-05-24] MEDS: MULTIVITAMINS/MINERALS THERAP 1 TAB PO SCH (07:27)
[2023-05-24] MEDS: SUCRALFATE 1 GM TAB PO SCH (07:28)
[2023-05-24] MEDS: MIDODRINE 5 MG TAB PO SCH ×3 (07:28→15:02)
[2023-05-24] MEDS: BISACODYL 10MG SUPP PR SCH ×2 (07:28→19:54)
[2023-05-24 07:48] LABS: ALBUMIN 1.8 G/DL (3.2-5.2); BILIRUBIN,DIRECT 2.8 MG/DL (<0.4); BILIRUBIN,TOTAL 3.8 MG/DL (0.3-1.2); TOTAL PROTEIN 6.4 G/DL (5.7-8.2)
[2023-05-24 08:08] LABS: INR 1.34; PROTHROMBIN TIME 16.1 SECONDS (12.5-14.5)
[2023-05-24 08:09] LABS: PARTIAL THROMBOPLASTIN TIME 37.4 SECONDS (24.8-34.2)
[2023-05-24] MEDS: SYMBICORT 160/4.5MCG INHALER 6GM INH SCH ×2 (10:21→19:04)
[2023-05-24 14:26] LABS: SOURCE, BODY FLUID ALBUMIN ASCITES
[2023-05-24 14:31] LABS: SOURCE, BODY FLUID GLUCOSE ASCITES
[2023-05-24] MEDS ORDERED: LOVE1INJ SC (14:31)
[2023-05-24 14:33] LABS: SOURCE, BODY FLUID TOT PROTEIN ASCITES; TOTAL PROTEIN, BODY FLUID < 2.0 G/DL (NOT ESTABLISHED)
[2023-05-24 14:48] LABS: APPEARANCE, BODY FLUID CLEAR (CLEAR); ASCITES FL COLOR YELLOW (COLORLESS); SOURCE, BODY FLUID ASCITES
[2023-05-24] MEDS: allopurinoL 300 MG TAB PO SCH (19:53)
[2023-05-24] MEDS: RAMELTEON 8 MG TAB (ROZEREM) PO SCH (19:53)
[2023-05-24] MEDS: cefTRIAXone SOD 2 GM in D5W MINI-BAG PLUS 50 ML IV SCH (19:54)
[2023-05-25] VITALS (15 sets, daily range): BP systolic 104–125; BP diastolic 57–70; TEMP 97.9–98.8; O2SAT 89–97
[2023-05-25] MEDS: LACTULOSE 20GM/30ML SYRUP UDC PO SCH ×4 (00:10→18:06)
[2023-05-25] MEDS: ALBUTEROL SULFATE 2.5MG/0.5ML INH NEB SOLN NEB SCH ×2 (01:48→07:32)
[2023-05-25] MEDS: oxyCODONE 5MG TAB PO PRN (02:06)
[2023-05-25 06:20] LABS: BASO # 0.1 10^3/uL (0.0-0.2); BASO % 0.5 % (0.0-1.0); EOS # 0.1 10^3/uL (0.0-0.5); EOS % 0.5 % (0.0-3.0); HEMATOCRIT 27.5 % (42.0-52.0); HEMOGLOBIN 8.6 g/dl (13.5-17.5); LYMPH # 1.5 10^3/uL (1.5-5.0); LYMPH % 16.8 % (24.0-44.0); MEAN CORPUSCULAR HEMOGLOBIN 30.8 pg (27.0-33.0); MEAN CORPUSCULAR HGB CONC 31.3 g/dl (32.0-36.5); MEAN CORPUSCULAR VOLUME 98.6 fl (80.0-96.0); MONO # 1.2 10^3/uL (0.0-0.8); MONO % 13.3 % (2.0-8.0); NEUTROPHILS # 6.2 10^3/uL (1.5-8.5); NEUTROPHILS % 67.9 % (36.0-66.0); PLATELET COUNT, AUTOMATED 131 10^3/uL (150-450); RED BLOOD COUNT 2.79 10^6/uL (4.30-6.10); WHITE BLOOD COUNT 9.2 10^3/uL (4.0-10.0)
[2023-05-25 06:45] LABS: CALCIUM LEVEL 9.8 MG/DL (8.3-10.6); CREATININE FOR GFR 1.52 MG/DL (0.70-1.30); GLOMERULAR FILTRATION RATE 49.4 (>49)
[2023-05-25] MEDS: SYMBICORT 160/4.5MCG INHALER 6GM INH SCH ×2 (07:32→19:08)
[2023-05-25] MEDS: MULTIVITAMINS/MINERALS THERAP 1 TAB PO SCH (08:44)
[2023-05-25] MEDS: SUCRALFATE 1 GM TAB PO SCH (08:44)
[2023-05-25] MEDS: DOCUSATE SODIUM 100MG CAPSULE PO SCH (08:44)
[2023-05-25] MEDS: ENOXAPARIN 150MG/ML SYRINGE SC SCH ×2 (08:44→20:11)
[2023-05-25] MEDS: MIDODRINE 5 MG TAB PO SCH ×3 (08:45→15:46)
[2023-05-25] MEDS: BISACODYL 10MG SUPP PR SCH ×2 (08:45→20:11)
[2023-05-25] MEDS ORDERED: IPRATROPIUM 0.5MG/ALBUTEROL 2.5MG INH SOL UD 3ML (DUONEB) NEB PRN (09:10)
[2023-05-25] MEDS ORDERED: SENOKOT S TAB PO PRN (09:25)
[2023-05-25] MEDS ORDERED: MIRALAX *UNIT DOSE* 17GM PACKET PO PRN (09:25)
[2023-05-25] MEDS ORDERED: MIDO5TA PO (17:45)
[2023-05-25 19:10] LABS: ALBUMIN 2.3 G/DL (3.2-5.2); BILIRUBIN,DIRECT 3.1 MG/DL (<0.4); BILIRUBIN,TOTAL 4.1 MG/DL (0.3-1.2); CALCIUM LEVEL 10.1 MG/DL (8.3-10.6); CREATININE FOR GFR 1.38 MG/DL (0.70-1.30); GLOMERULAR FILTRATION RATE 55.2 (>49); POTASSIUM SERUM 3.6 MMOL/L (3.5-5.1); TOTAL PROTEIN 6.6 G/DL (5.7-8.2)
[2023-05-25] MEDS: allopurinoL 300 MG TAB PO SCH (20:11)
[2023-05-25] MEDS: RAMELTEON 8 MG TAB (ROZEREM) PO SCH (20:11)
[2023-05-26] VITALS (12 sets, daily range): BP systolic 100–126; BP diastolic 60–74; TEMP 97.7–99.3; O2SAT 90–96
[2023-05-26] MEDS: LACTULOSE 20GM/30ML SYRUP UDC PO SCH ×4 (00:04→17:05)
[2023-05-26 06:17] LABS: BASO # 0.1 10^3/uL (0.0-0.2); BASO % 0.7 % (0.0-1.0); EOS # 0.1 10^3/uL (0.0-0.5); EOS % 1.6 % (0.0-3.0); HEMATOCRIT 27.5 % (42.0-52.0); HEMOGLOBIN 8.7 g/dl (13.5-17.5); LYMPH # 1.7 10^3/uL (1.5-5.0); LYMPH % 18.7 % (24.0-44.0); MEAN CORPUSCULAR HGB CONC 31.6 g/dl (32.0-36.5); MEAN CORPUSCULAR VOLUME 97.9 fl (80.0-96.0); MONO # 1.3 10^3/uL (0.0-0.8); MONO % 14.1 % (2.0-8.0); NEUTROPHILS # 5.7 10^3/uL (1.5-8.5); NEUTROPHILS % 64.1 % (36.0-66.0); PLATELET COUNT, AUTOMATED 134 10^3/uL (150-450); RED BLOOD COUNT 2.81 10^6/uL (4.30-6.10); WHITE BLOOD COUNT 8.9 10^3/uL (4.0-10.0)
[2023-05-26 06:50] LABS: ALBUMIN 2.4 G/DL (3.2-5.2); ALKALINE PHOSPHATASE 744 U/L (46-116); ALT/SGPT 41 U/L (7.0-40); AST/SGOT 292 U/L (<34); BILIRUBIN,DIRECT 2.9 MG/DL (<0.4); BILIRUBIN,TOTAL 4.3 MG/DL (0.3-1.2); BLOOD UREA NITROGEN 42 MG/DL (9-23); CARBON DIOXIDE LEVEL 26 MMOL/L (20-31); CHLORIDE LEVEL 102 MMOL/L (98-107); CREATININE FOR GFR 1.24 MG/DL (0.70-1.30); GLOMERULAR FILTRATION RATE > 60.0 (>49); GLUCOSE, FASTING 82 MG/DL (74-106); POTASSIUM SERUM 5.6 MMOL/L (3.5-5.1); SODIUM LEVEL 137 MMOL/L (136-145); TOTAL PROTEIN 6.4 G/DL (5.7-8.2)
[2023-05-26] MEDS: ENOXAPARIN 150MG/ML SYRINGE SC SCH ×2 (07:12→20:41)
[2023-05-26] MEDS: MULTIVITAMINS/MINERALS THERAP 1 TAB PO SCH (07:13)
[2023-05-26] MEDS: MIDODRINE 5 MG TAB PO SCH ×3 (07:13→15:58)
[2023-05-26] MEDS: SUCRALFATE 1 GM TAB PO SCH (07:13)
[2023-05-26] MEDS: BISACODYL 10MG SUPP PR SCH ×2 (07:15→20:41)
[2023-05-26] MEDS: SYMBICORT 160/4.5MCG INHALER 6GM INH SCH ×2 (08:44→19:29)
[2023-05-26] MEDS: predniSONE 20 MG TAB PO SCH (09:18)
[2023-05-26 12:59] LABS: ALBUMIN 2.6 G/DL (3.2-5.2); BILIRUBIN,DIRECT 3.4 MG/DL (<0.4); TOTAL PROTEIN 6.7 G/DL (5.7-8.2)
[2023-05-26] MEDS: allopurinoL 300 MG TAB PO SCH (20:40)
[2023-05-26] MEDS: RAMELTEON 8 MG TAB (ROZEREM) PO SCH (20:40)
[2023-05-27] VITALS (8 sets, daily range): BP systolic 102–123; BP diastolic 61–78; TEMP 98.1–99.8; O2SAT 90–95
[2023-05-27] MEDS: oxyCODONE 5MG TAB PO PRN (02:40)
[2023-05-27 05:47] LABS: BASO % 0.2 % (0.0-1.0); EOS % 0.3 % (0.0-3.0); HEMATOCRIT 26.7 % (42.0-52.0); HEMOGLOBIN 8.6 g/dl (13.5-17.5); LYMPH # 1.4 10^3/uL (1.5-5.0); LYMPH % 12.8 % (24.0-44.0); MEAN CORPUSCULAR HEMOGLOBIN 31.9 pg (27.0-33.0); MEAN CORPUSCULAR HGB CONC 32.2 g/dl (32.0-36.5); MEAN CORPUSCULAR VOLUME 98.9 fl (80.0-96.0); MONO # 1.4 10^3/uL (0.0-0.8); NEUTROPHILS # 8.1 10^3/uL (1.5-8.5); NEUTROPHILS % 72.8 % (36.0-66.0); PLATELET COUNT, AUTOMATED 117 10^3/uL (150-450); WHITE BLOOD COUNT 11.1 10^3/uL (4.0-10.0)
[2023-05-27 06:03] LABS: BLOOD UREA NITROGEN 39 MG/DL (9-23); CALCIUM LEVEL 9.8 MG/DL (8.3-10.6); CARBON DIOXIDE LEVEL 28 MMOL/L (20-31); CHLORIDE LEVEL 104 MMOL/L (98-107); CREATININE FOR GFR 1.14 MG/DL (0.70-1.30); GLOMERULAR FILTRATION RATE > 60.0 (>49); GLUCOSE, FASTING 85 MG/DL (74-106); POTASSIUM SERUM 3.9 MMOL/L (3.5-5.1); SODIUM LEVEL 140 MMOL/L (136-145)
[2023-05-27] MEDS: LACTULOSE 20GM/30ML SYRUP UDC PO SCH ×3 (06:11→12:37)
[2023-05-27] MEDS: SYMBICORT 160/4.5MCG INHALER 6GM INH SCH (08:17)
[2023-05-27] MEDS: MULTIVITAMINS/MINERALS THERAP 1 TAB PO SCH (08:28)
[2023-05-27] MEDS: predniSONE 20 MG TAB PO SCH (08:28)
[2023-05-27] MEDS: SUCRALFATE 1 GM TAB PO SCH (08:28)
[2023-05-27] MEDS: MIDODRINE 5 MG TAB PO SCH ×2 (08:29→12:37)
[2023-05-27] MEDS: BISACODYL 10MG SUPP PR SCH (08:30)
[2023-05-27] MEDS: ENOXAPARIN 150MG/ML SYRINGE SC SCH (08:30)
[2023-05-27 11:12] LABS: ALBUMIN 2.6 G/DL (3.2-5.2); ALKALINE PHOSPHATASE 678 U/L (46-116); ALT/SGPT 30 U/L (7.0-40); AST/SGOT 244 U/L (<34); BILIRUBIN,DIRECT 3.1 MG/DL (<0.4); BILIRUBIN,TOTAL 4.5 MG/DL (0.3-1.2); TOTAL PROTEIN 6.3 G/DL (5.7-8.2)
[2023-05-27] MEDS ORDERED: PRED20TA PO (12:51)
[2023-05-27] MEDS ORDERED: PRED10TA2 PO (12:52)
== END 2023-05-27 16:53 | disposition home or self-care (01) | DRG 441 ==
LOC: EDBD 13:39 → M ED 13:39 → M ED INP 18:13 → M MSPAV 22:10
PROVIDERS: ADMIT Internal Medicine Nephrology; ATTEND General Practice
PROC: 0W9G3ZZ Drainage of Peritoneal Cavity, Percutaneous Approach (ICD-10-PCS; principal; 2023-05-24 12:00)
DX: I81 Portal vein thrombosis (principal); K83.1 Obstruction of bile duct; I85.10 Secondary esophageal varices without bleeding; J45.21 Mild intermittent asthma with (acute) exacerbation; K76.6 Portal hypertension; N17.9 Acute kidney failure, unspecified; E87.20 Acidosis, unspecified; R18.8 Other ascites; K92.2 Gastrointestinal hemorrhage, unspecified; K74.60 Unspecified cirrhosis of liver; E66.01 Morbid (severe) obesity due to excess calories; E11.22 Type 2 diabetes mellitus with diabetic chronic kidney disease; N18.30 Chronic kidney disease, stage 3 unspecified; I12.9 Hypertensive chronic kidney disease with stage 1 through stage 4 chronic kidney disease, or unspecified chronic kidney disease; F32.A Depression, unspecified; D64.9 Anemia, unspecified; K21.9 Gastro-esophageal reflux disease without esophagitis; E78.5 Hyperlipidemia, unspecified; E78.1 Pure hyperglyceridemia; K59.00 Constipation, unspecified; E87.5 Hyperkalemia; G47.33 Obstructive sleep apnea (adult) (pediatric); E86.0 Dehydration; R59.0 Localized enlarged lymph nodes; F17.200 Nicotine dependence, unspecified, uncomplicated; M10.9 Gout, unspecified; I87.2 Venous insufficiency (chronic) (peripheral); R16.1 Splenomegaly, not elsewhere classified; K44.9 Diaphragmatic hernia without obstruction or gangrene; R74.01 Elevation of levels of liver transaminase levels; K75.81 Nonalcoholic steatohepatitis (NASH); Z79.899 Other long term (current) drug therapy

== ENCOUNTER 2023-06-13 10:28 | Emergency (ER) | payer OTHER, MEDICAID ==
[~2023-06-13] VITALS: Ht 185.4 cm; Wt 126.8 kg
[~2023-06-13 10:28] MED LIST changes: +DOCU100C16 PO; +FURO20TA2 PO; +FURO40TA2 PO; +LOVE1INJ SC; +MIDO5TA PO; +PRED10TA2 PO
[2023-06-13 12:30] LABS: BASO % 0.2 % (0.0-1.0); EOS # 0.1 10^3/uL (0.0-0.5); EOS % 0.4 % (0.0-3.0); HEMATOCRIT 37.2 % (42.0-52.0); HEMOGLOBIN 12.5 g/dl (13.5-17.5); LYMPH % 5.7 % (24.0-44.0); MEAN CORPUSCULAR HEMOGLOBIN 32.1 pg (27.0-33.0); MEAN CORPUSCULAR HGB CONC 33.6 g/dl (32.0-36.5); MEAN CORPUSCULAR VOLUME 95.4 fl (80.0-96.0); MONO # 1.1 10^3/uL (0.0-0.8); MONO % 5.9 % (2.0-8.0); NEUTROPHILS # 15.1 10^3/uL (1.5-8.5); NEUTROPHILS % 85.7 % (36.0-66.0); PLATELET COUNT, AUTOMATED 134 10^3/uL (150-450); WHITE BLOOD COUNT 17.7 10^3/uL (4.0-10.0)
[2023-06-13 12:54] LABS: INR 1.37; PROTHROMBIN TIME 16.5 SECONDS (12.5-14.5)
[2023-06-13 12:55] LABS: PARTIAL THROMBOPLASTIN TIME 37.8 SECONDS (24.8-34.2)
[2023-06-13 13:05] LABS: LIPASE 143 U/L (12-53)
[2023-06-13 13:07] LABS: ALBUMIN 2.2 G/DL (3.2-5.2); ALKALINE PHOSPHATASE 598 U/L (46-116); ALT/SGPT 62 U/L (7.0-40); AST/SGOT 384 U/L (<34); BILIRUBIN,DIRECT 10.7 MG/DL (<0.4); BILIRUBIN,TOTAL 14.6 MG/DL (0.3-1.2); BLOOD UREA NITROGEN 87 MG/DL (9-23); CALCIUM LEVEL 9.3 MG/DL (8.3-10.6); CARBON DIOXIDE LEVEL 25 MMOL/L (20-31); CHLORIDE LEVEL 92 MMOL/L (98-107); CK-MB VALUE MASS < 1.0 NG/ML (<3.6); CREATININE FOR GFR 2.44 MG/DL (0.70-1.30); GLOMERULAR FILTRATION RATE 28.6 (>49); GLUCOSE, FASTING 65 MG/DL (74-106); POTASSIUM SERUM 4.2 MMOL/L (3.5-5.1); SODIUM LEVEL 130 MMOL/L (136-145); TOTAL PROTEIN 6.8 G/DL (5.7-8.2)
[2023-06-13 13:08] LABS: CPK CREATINE PHOSPHOKINASE 208 U/L (46-171); MB/CK RELATIVE INDEX 0.48 (< OR =4)
[2023-06-13] MEDS ORDERED: NS IV STA (13:14)
[2023-06-13] MEDS ORDERED: CEFEPIME HCL 2 GM in D5W MINI-BAG PLUS 50 ML IV ONE (13:15)
[2023-06-13] MEDS ORDERED: DEXTROSE 50% 50ML SYRINGE IV STA (13:15)
[2023-06-13] MEDS ORDERED: metroNIDAZOLE 500 MG in IV 1 EA IV ONE (14:45)
[2023-06-13 16:15] LABS: AMPHETAMINES LEVEL URINE NEGATIVE (NEGATIVE); BARBITURATES URINE NEGATIVE (NEGATIVE)
[2023-06-13 16:16] LABS: BENZODIAZEPINES URINE NEGATIVE (NEGATIVE); CANNABINOIDS URINE POSITIVE (NEGATIVE); COCAINE METABOLITE URINE NEGATIVE (NEGATIVE); METHADONE URINE NEGATIVE (NEGATIVE); OPIATES URINE NEGATIVE (NEGATIVE); PHENCYCLIDINE URINE NEGATIVE (NEGATIVE)
[2023-06-13] MEDS ORDERED: ENOXAPARIN 100MG/1ML SYRINGE (J1650 PER 10MG) SC ONE (17:45)
[2023-06-13] MEDS ORDERED: ENOXAPARIN 150MG/ML SYRINGE SC ONE (18:00)
[2023-06-13 18:45] VITALS: BP 121/55; TEMP 98.6; O2SAT 93
== END 2023-06-13 18:55 | disposition short-term general hospital (02) ==
LOC: M ED 10:28
DX: N17.9 Acute kidney failure, unspecified (principal); E80.6 Other disorders of bilirubin metabolism; K74.60 Unspecified cirrhosis of liver; I81 Portal vein thrombosis; E11.9 Type 2 diabetes mellitus without complications; F32.A Depression, unspecified; K21.9 Gastro-esophageal reflux disease without esophagitis; M10.9 Gout, unspecified; E55.9 Vitamin D deficiency, unspecified; Z79.52 Long term (current) use of systemic steroids; Z79.810 Long term (current) use of selective estrogen receptor modulators (SERMs); Z79.899 Other long term (current) drug therapy
CPT/HCPCS: 36415; 70450; 71046; 74176; 80048; 80076; 80307; 82550; 82553; 83605; 83690; 84484; 85025; 85610; 85730; 86850; 87040; 87486; 87581; 87633; 87798; 93005; 93041; 93970; 93975; 96372; 96374; 96375; 99285; G0463; J0692; J1650; J1836